=== PATIENT | female | born 1945 | race Caucasian/White ===

== ENCOUNTER 2024-05-09 12:37 | Inpatient (IN) | payer OTHER, MEDICARE, SELFPAY ==
[2024-05-09] VITALS (48 sets, daily range): BP systolic 75–149; BP diastolic 47–78; PULSE 73–154; RESP 15–92; TEMP 37.2–39.6; O2SAT 91–99; BMI 17.6; BMI 21.7
--- NOTE | 2024-05-09 12:50 | PD.EDAMS ---
Altered Mental Status RME/HPI General Chief Complaint: Altered Mental Status Stated Complaint: AMS Time Seen by Provider: 05/09/24 12:46 Arrival date/time: 05/09/24 12:37 RME / HPI RME / HPI narrative: DR. RAMIREZ MAIN ED EVALUATION: 79 year old female with past medical history significant for hypertension and diabetes presents to the Emergency Department [facility] from home with complaints of altered mental status and lethargy. Family called an ambulance because patient was confused after she woke up from a nap at 12PM; per EMS patient usually is a GCS of 15 and today she was a GCS of 11 and barely telling us her name. Per EMS, patient is tachycardic and seems febrile, hot to touch. Related Data Home Medications ?Medication ?Instructions ?Recorded ?Confirmed lovastatin 20 mg tablet 20 mg PO HS #0 tabs 03/06/16 metformin 500 mg tablet 500 mg PO BIDAC #0 tabs 03/06/16 (Glucophage) Previous Rx's ?Medication ?Instructions ?Recorded Phenazopyridine * (PYRIDIUM *) 200 mg PO TIDPC #10 tabs 03/01/16 Allergies Allergy/AdvReac Type Severity Reaction Status Date / Time codeine Allergy Mild SHAKEY Verified 03/23/16 12:11 Review of Systems Review of Systems Systems Reviewed: All systems reviewed, normal except as documented Past Medical History Social History SMOKING STATUS: Never smoker SUBSTANCE USE: does not use ALCOHOL: Never ED Exam Narrative Physical exam: GENERAL APPEARANCE: awake, tachypneic; well-developed, well-nourished, no acute distress VITALS: All vitals were reviewed and the pulse ox is 95% on room air, which is normal according to my interpretation. HEENT: Normocephalic, atraumatic; pupils equal, round, reactive to light; EOMI; mucous membranes pink, moist; oropharynx clear NECK: Supple LUNGS: tachypneic; no wheezes, no rales, no rhonchi HEART: Tachycardic, regular rhythm; normal S1, S2; no murmurs ABDOMEN: non distended; normal BS; soft, no tenderness, no guarding, no rebound; no masses, no organomegaly, no hernia BACK: no CVA tenderness EXTREMITIES: atraumatic; no edema NEUROLOGIC: awake; resting tremors PSYCHIATRIC: appropriate mood and affect SKIN: warm, dry, normal color; no rashes Course Course Course Narrative: 1415: Sepsis alert initiated. Orders made at this time are congruent with ED Adult Sepsis Order List. Re-evaluation is to be completed. 1444: Fluids started. 1515: Sepsis reassessment performed consisting of lab review, vitals, physical exam including auscultation of heart, lungs, and visual evaluation of capillary refills, mucosal membranes and extremities. Quality Measures Current suspected stage: sepsis Possible source: genitourinary Blood cultures ordered: yes Antibiotic ordered: Yes Pertinent labs: 05/09/24 13:11 Lactic Acid 3.2 H mMol/L (0.4-2.0) Procalcitonin 4.20 H ng/ml (0.0-0.49) sepsis Orders Category Date Time Status Bedside COVID-19 Antigen Test NOW Care 05/09/24 14:21 Active Bedside Influenza A&B Antigen Test NOW Care 05/09/24 14:21 Active Consultant Dietitian NOW Care 05/09/24 12:51 Active EKG (ED ONLY) *Do not use* NOW Care 05/09/24 12:51 Completed In and Out Catheter X1 Care 05/09/24 14:25 Completed Insert IV NOW Care 05/09/24 14:[address] head/brain wo con Stat Exams 05/09/24 12:53 Completed EKG (ED Only) Stat Exams 05/09/24 12:51 Draft XR chest 1V portable Stat Exams 05/09/24 12:51 Completed B-Type Natriuretic Peptide Stat Lab 05/09/24 13:11 Completed Blood Culture (Lab) Stat Lab 05/09/24 14:45 Received CBC Stat Lab 05/09/24 13:11 Completed Comprehensive Metabolic Panel Stat Lab 05/09/24 13:11 Completed Lactate (Lactic Acid) Stat Lab 05/09/24 13:11 Results Lipase Stat Lab 05/09/24 13:11 Completed Magnesium Stat Lab 05/09/24 13:11 Completed Partial Thromboplastin Time Stat Lab 05/09/24 13:11 Completed Procalcitonin Stat Lab 05/09/24 13:11 Completed Prothrombin Time with INR Stat Lab 05/09/24 13:11 Completed Troponin I Stat Lab 05/09/24 13:11 Completed Urinalysis Stat Lab 05/09/24 14:20 Completed Urine Culture Stat Lab 05/09/24 14:20 Received Sodium Chloride 0.9% 1000 ml [Ns] 1,000 ml Med 05/09/24 13:04 Discontinued IV 999 mls/hr Sodium Chloride 0.9% 1000 ml [Ns] 1,000 ml Med 05/09/24 14:06 Discontinued IV 999 mls/hr cefTRIAXone/D5w 1gm IV premix [Rocephin/D5w 1gm IV Med 05/09/24 14:22 Discontinued premix] 1 gm in 50 ml IV X1 Vital Signs Vital signs: Vital Signs Temperature 100.1 F 05/09/24 13:00 Pulse Rate 120 H 05/09/24 13:00 Respiratory Rate 24 H 05/09/24 13:00 Blood Pressure 84/47 L 05/09/24 13:00 Pulse Oximetry (%) 98 05/09/24 13:00 Oxygen Delivery Method Nasal Cannula 05/09/24 13:00 Oxygen Flow Rate 4 05/09/24 13:00 Altered Mental Status MDM Narrative MDM Narrative:: IVicky am scribing for and in the presence of Dr. Ramirez. Patient data External records reviewed:: EMS form Clinical information provided by:: EMS Social determinants that could affect healthcare access:: none Patient has the following chronic illnesses:: hypertension and diabetes How is presenting disease/condition affected by chronic disease/condition?: exacerbated by Evaluation data The following diagnostics were reviewed and interpreted by me:: lab results, radiology exam(s) and EKG tracing(s) (EKG#1: EKG at 1340 hours. Interpreted by me: sinus tachycardia, rate 116, artifact, left anterior fascicular block, right bundle branch block) Lab and/or radiology exams considered but not ordered:: none Interpretation Summary: Procedure(s): CT head/brain wo con Accession Number(s): [id number] cc: Artur Anderson MD; Gallo Hightower MD; Rabia Ramirez MD~ Examination: CT brain head without contrast. 2-D sagittal coronal reconstructions Date and time of exam:May 09, 2024 1433 hrs. Comparison July 17, 2013 Indications: Altered mental status today CTDI: vol (mGy):47.8 DLP: (mGycm):961 Technique: Multiple CT axial sections of the brain have been obtained, 5 mm slice thickness. Contrast has not been administered. 2-D sagittal, coronal reconstructions have been obtained Low dose protocols were performed. One or more of the following dose reduction techniques were used; automated exposure control, adjustment of the mA and/or KV according to patient size, use of iterative reconstruction technique. Findings: No significant ventricular enlargement. Intra-axial or extra-axial hemorrhage density is not seen. No mass effect or midline shift Basal cisterns are not remarkable. Fourth ventricle is midline. Cranial vault intact. Impression: Negative for acute hemorrhage, mass effect or midline shift Advise clinical correlation follow-up accordingly Dictated By: Gallo Hightower MD Procedure(s): XR chest 1V portable Accession Number(s): [id number] cc: Artur Anderson MD; Gallo Hightower MD; Rabia Ramirez MD~ Examination: AP chest single view Technique one AP portable semiupright chest single view Exam date and time: May 09, 2024 at 1448 hrs. Comparison July 15, 2013 Indications: Chest pain today. Findings: Mild prominence left ventricle. Enlarged ectatic thoracic aorta. Mild elevation right hemidiaphragm. Mild vascular congestion. No lobar pneumonia or pulmonary edema. Impression: Mild vascular congestion. Dictated By: Gallo Hightower MD Medications / Prescriptions Medications or Prescriptions considered but not ordered:: none Medication administrations:: Medication Administration History Discontinued Medications Sodium Chloride (Ns) 1,000 mls @ 999 mls/hr IV .Q1H1M ONE Stop: 05/09/24 14:04 Last Admin: 05/09/24 14:44 Dose: 999 mls/hr Documented By: KEITH Sodium Chloride (Ns) 1,000 mls @ 999 mls/hr IV .Q1H1M ONE Stop: 05/09/24 15:06 Last Admin: 05/09/24 14:44 Dose: 999 mls/hr Documented By: KEITH Ceftriaxone Sodium/Dextrose (Rocephin/D5w 1gm Iv Premix) 1 gm in 50 mls @ 100 mls/hr IV X1 ONE Stop: 05/09/24 14:51 Last Infusion: 05/09/24 15:26 Dose: Infused Documented By: Admin: 05/09/24 14:44 Dose: 100 mls/hr Documented By: KEITH see above if any Consultations Consultation(s) initiated? (list below): Yes Consultation #1 (Physician, Specialty, Details): Discussed test HPI, PMHx, lab, radiology results and/or management with hospitalist. Will admit for further evaluation and management. Accepts patient for admission. Diagnosis Differential diagnosis altered mental status: altered mental status, dementia, subarachnoid hemorrhage, sepsis and other (UTI, dehydration) Most likely diagnosis given after review of the tests above:: Sepsis UTI Admission Indicated Admission indicated?: indicated Admission Request Was there a request for admission?: Yes Admission Attestation Admission request attestation: Discussed case with [] from Hospitalist service regarding admission. Discussed patients ED course, exam findings, labs, and radiology results. The Hospitalist [agrees,declines] to accept the patient for admission. Disposition Plan Disposition Plan: Admit Critical Care Time Critical Care Time Critical Care Time: Yes Total Critical Care Time (min.): 30 Attestation: The high probability of sudden, clinically significant deterioration in the patient?s condition required the highest level of my preparedness to intervene urgently. The services I provided to this patient were to treat and/or prevent clinically significant deterioration. Services included the following: chart data review, reviewing nursing notes and/or old charts, documentation time, [employer] consultant collaboration regarding findings and treatment options, medication orders and management, direct patient care, vital sign assessments and ordering, interpreting and reviewing diagnostic studies and lab tests. Aggregate critical care time includes only time during which I was engaged in work directly related to the patient?s care, as described above, whether at bedside or elsewhere in the Emergency Department. It did not include time spent performing other reported procedures or the services of residents, students, nurses or physician assistants. Discharge Plan Plan Patient Disposition: Admit Acute Care w/in Hospital Prescriptions/Referrals Prescriptions/Med Rec: No Action Phenazopyridine * (PYRIDIUM *) 200 MG tablet 200 mg PO TIDPC Qty: 10 0RF metformin [Glucophage] 500 MG tablet 500 mg PO BIDAC Qty: 0 lovastatin 20 MG tablet 20 mg PO HS Qty: 0 Referrals: Artur Anderson MD [Primary Care Provider] - In 1 week Problem List Clinical Impression: Sepsis due to urinary tract infection, UTI (urinary tract infection) Patient/Caregiver Discharge Instructions Print Language: Macedonian Stand Alone Forms: Debbie Award Info., Patient Portal Info Letter
--- NOTE | 2024-05-09 12:51 | EKG_ITS ---
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: : 1945 Requested By: Rabia Cummings Order Number: [id number] Reading MD: Rabia Cummings Measurements Intervals [place] Rate: 116 P: 36 NC: 135 QRS: -31 QRSD: 77 T: 13 QT: 350 QTc: 488 Interpretive Statements SINUS TACHYCARDIA POSSIBLE LEFT ATRIAL ENLARGEMENT [-0.1mV P-WAVE IN V1/V2] LOW QRS VOLTAGE IN PRECORDIAL LEADS [QRS DEFLECTION < 1.0 mV IN CHEST LEADS] PATTERN CONSISTENT WITH PULMONARY DISEASE POSSIBLE RIGHT VENTRICULAR CONDUCTION DELAY [RSR (QR) IN V1/V2] INFERIOR MYOCARDIAL INFARCTION , PROBABLY OLD [40+ ms Q WAVE AND/OR ST/T ABNORMALITY IN II/aVF] No previous ECG available for comparison /store/S0/[id number]/[id number].pdf
--- NOTE | 2024-05-09 12:53 | XR_ITS ---
Examination: CT brain head without contrast. 2-D sagittal coronal reconstructions Date and time of exam:May 09, 2024 1433 hrs. Comparison July 17, 2013 Indications: Altered mental status today CTDI: vol (mGy):47.8 DLP: (mGycm):961 Technique: Multiple CT axial sections of the brain have been obtained, 5 mm slice thickness. Contrast has not been administered. 2-D sagittal, coronal reconstructions have been obtained Low dose protocols were performed. One or more of the following dose reduction techniques were used; automated exposure control, adjustment of the mA and/or KV according to patient size, use of iterative reconstruction technique. Findings: No significant ventricular enlargement. Intra-axial or extra-axial hemorrhage density is not seen. No mass effect or midline shift Basal cisterns are not remarkable. Fourth ventricle is midline. Cranial vault intact. Impression: Negative for acute hemorrhage, mass effect or midline shift Advise clinical correlation follow-up accordingly
[2024-05-09 13:20] LABS: Lactate (Lactic Acid) 3.2 mMol/L (0.4-2.0)
[2024-05-09 13:22] LABS: Basophils % (Auto) 0 % (0-2.5); Eosinophils % (Auto) 0 % (0-10); Hematocrit 44.1 % (36.0-46.0); Hemoglobin 14.3 g/dL (12.0-16.0); Immature Granulocytes % (Auto) 1 % (0-0); Immature Granulocytes Auto 0.03 Thou/mm3 (0.00-0.00); Lymphocytes # (Auto) 3.8 Thou/mm3 (1.0-4.8); Lymphocytes % (Auto) 58 % (10-50); Mean Corpuscular HGB Conc 32.4 g/dl (31.0-37.0); Mean Corpuscular Hemoglobin 28.8 pg (25.0-35.0); Mean Corpuscular Volume 89 fL (80-100); Monocytes # (Auto) 0.1 Thou/mm3 (0.0-0.8); Monocytes % (Auto) 1 % (0-12); Neutrophils # (Auto) 2.7 Thou/mm3 (1.8-7.7); Neutrophils % (Auto) 41 % (37-80); Nucleated Red Blood Cell % 0 /100 WBC (0); Platelet Count 151 Thou/mm3 (140-440); RDW Standard Deviation 51.9 fL (36.4-46.3); Red Blood Count 4.97 Miln/mm3 (4.00-5.20); White Blood Count 6.6 Thou/mm3 (3.6-11.0)
[2024-05-09 13:51] LABS: Partial Thromboplastin Time 21.3 Seconds (22.0-36.0); Prothrombin Time 10.9 Seconds (9.0-12.2)
[2024-05-09 13:55] LABS: B-Type Natriuretic Peptide 45 pg/mL (0-100)
[2024-05-09 14:03] LABS: Alanine Aminotransferase 47 U/L (10-49); Albumin, Serum 3.6 gm/dL (3.4-4.8); Alkaline Phosphatase 106 U/L (46-116); Anion Gap 10 (7-16); Aspartate Amino Transferase 92 U/L (0-34); BUN/Creatinine Ratio 15 Ratio (12-20); Bilirubin,Total 0.9 mg/dL (0.3-1.2); Blood Urea Nitrogen 15 mg/dL (9-23); Calcium 8.7 mg/dL (8.3-10.6); Carbon Dioxide 23.5 mMol/L (20.0-31.0); Chloride 108 mMol/L (98-107); Estimated Creatinine Clearance 33.2 mL/min (>60); Globulin 1.8 gm/dL (2.3-3.5); Glucose 145 mg/dL (74-106); Lipase 31 U/L (12-53); Magnesium 1.8 mg/dL (1.6-2.6); Osmolality,Calculated 285 (275-295); Potassium 3.4 mMol/L (3.4-5.1); Sodium 141 mMol/L (136-145); Total Protein 5.4 gm/dL (5.7-8.2); Troponin I < 0.020 ng/mL (0.0-0.045); eGFR 58 See Note
[2024-05-09] MEDS: SODIUM CHLORIDE 0.9% 1000 ML 1,000 ML 999 ML IV ×3 (14:44→17:03)
[2024-05-09] MEDS: cefTRIAXone/D5w 1gm IV premix 1 GM/50 ML BAG IV (14:44)
[2024-05-09 14:59] LABS: Collection Type, Urine Catheter
[2024-05-09 15:37] LABS: Bacteria,Urine 1+; Bilirubin,Urine Negative (Negative); Blood,Urine 2+ (Negative); Color,Urine Yellow (Lt Yel-Yel); Glucose, Urine Negative (Negative); Ketones,Urine Negative (Negative); Leukocyte Esterase,Urine Positive (Negative); Nitrite,Urine Negative (Negative); PH,Urine 6.5 (5.0-7.0); Protein,Urine Trace (Neg - Trace); RBC,Urine 41 /hpf (0-3); Specific Gravity,Urine 1.014 (1.001-1.035); Squamous Epithelial Cell,Urine 2 /hpf (0-5); Urobilinogen,Urine Negative mg/dL (0.0-1.0); WBC,Urine 7 /hpf (0-5)
[2024-05-09 15:39] LABS: Clarity,Urine Hazy (Clear/Hazy)
[2024-05-09 16:17] LABS: Reflex Lactate? Y
[2024-05-09 16:40] LABS: Lactic Acid, 3 HR 3.1 mMol/L (0.4-2.0)
--- NOTE | 2024-05-09 16:41 | ESHP_ITS ---
<Statement entered by Hany Bergeron MD - 05/11/24 10:35> I have discussed and was present for the essential components of the history, physical examination, diagnosis, and treatment plan with the resident. I agree with the patient's care as documented by the resident and amended herein by me. aHny Bergeron MD FACP. Documentation for date of: 05/09/24 HPI History of Present Illness Chief complaint: AMS History of present illness: 79 y/o F with PMHx of HTN, Diabetes, who presented to the ED due to altered mental status. History was limited due to the patient's mental status. Apparently the family called ambulance after the patient woke up around noon and saw that she was confused and not making much sense. In the ED patient arrived hypotensive, tachycardic, tachypneic, with fever 100.1, saturating 98% on 4 L nasal cannula. Patient was given 2 L NS bolus and blood pressure improved. Patient was also given ceftriaxone. Patient will be admitted for altered mental status likely in the setting of sepsis secondary to influenza and UTI ED course: Vitals on arrival BP 84/47, HR 120, respiratory rate 24, temp 100.1, O2 sat 98% on 4 L nasal cannula labs significant for chloride 108, GFR 58, glucose 145, lactic acid 2.1, AST 92, procalcitonin 4.20, UA showed 2+ blood, 41 urinary RBCs, 7 WBCs, 1+ bacteria. EKG showed sinus tachycardia, head CT was negative for acute bleed, chest x-ray showed mild vascular congestion. In the ED patient received 2 L NS bolus, ceftriaxone PMHx:as above SxHx:unknown Social Hx:unknown FHx: unknown Review of Systems Review of Systems ROS Unobtainable: unobtainable due to mental status Exam Vital Signs Temp Pulse Resp BP Pulse Ox O2 Del Method O2 Flow Rate 99.6 F 90 20 108/74 91 L Room Air 4 05/09/24 16:32 05/09/24 16:32 05/09/24 16:32 05/09/24 16:32 05/09/24 16:32 05/09/24 16:32 05/09/24 13:00 Narrative Exam Physical Exam GENERAL: NAD, fecal matter around whole body HEENT: dry mucosa. Eyes open, symmetrical, & clear CARDIO: Heart RRR, no obvious murmurs PULM: No noted coughing/dyspnea CTA B/L, no R/W/R GI: Abdomen soft, nondistended, no pain on palpation. BSx4 SKIN/MSK/EXT: No wounds/rashes/edema/amputations, no pain on palpation. Pedal pulses present B/L Results: Labs 05/09/24 13:11 05/09/24 13:11 Labs: Short CBC 05/09/24 Range/Units 13:11 WBC 6.6 (3.6-11.0) Thou/mm3 Hgb 14.3 (12.0-16.0) g/dL Hct 44.1 (36.0-46.0) % Plt Count 151 (140-440) Thou/mm3 BMP 05/09/24 13:11 Sodium 141 Potassium 3.4 Chloride 108 H Carbon Dioxide 23.5 BUN 15 Creatinine 1.0 Glucose 145 H Calcium 8.7 Cardiac Enzymes 05/09/24 Range/Units 13:11 Troponin I < 0.020 (0.0-0.045) ng/mL Liver Function 05/09/24 Range/Units 13:11 Total Bilirubin 0.9 (0.3-1.2) mg/dL AST 92 H (0-34) U/L ALT 47 (10-49) U/L Alkaline Phosphatase 106 (46-116) U/L Albumin 3.6 (3.4-4.8) gm/dL Urine 05/09/24 Range/Units 14:20 Urine Color Yellow (Lt Yel-Yel) Urine Clarity Hazy (Clear/Hazy) Urine pH 6.5 (5.0-7.0) Ur Specific [place] 1.014 (1.001-1.035) Urine Protein Trace (Neg - Trace) Urine Glucose (UA) Negative (Negative) Quality Measures Quality Measures sepsis Current suspected stage: sepsis Possible source: genitourinary Blood cultures ordered: yes Antibiotic ordered: Yes Advance care planning discussed with:: patient Medications Home Medications and Allergies Home Medications ?Medication ?Instructions ?Recorded ?Confirmed ?Type lovastatin 20 mg tablet 20 mg PO HS #0 tabs 03/06/16 History metformin 500 mg tablet 500 mg PO BIDAC #0 tabs 02/12 05/28 History (Glucophage) Allergies Allergy/AdvReac Type Severity Reaction Status Date / Time codeine Allergy Mild SHAKEY Verified 03/23/16 12:11 Visit Medications Acetaminophen (Acetaminophen 325 Mg Tablet) 650 mg PO Q6H PRN PRN Reason: Fever >101.5 Stop: 06/08/24 16:32 Acetaminophen (Acetaminophen 325 Mg Tablet) 650 mg PO Q6H PRN PRN Reason: PAIN SCALE 1-3 (mild Stop: 06/08/24 16:32 Docusate Sodium (Docusate Sod 100 Mg Capsule) 100 mg PO QDAY TITA; Protocol Stop: 06/09/24 08:59 Heparin Sodium (Porcine) (Heparin Sod Inj 5000 Unit/Ml Vial) 5,000 unit SC Q8HR TITA Stop: 05/23/24 21:59 Ceftriaxone Sodium/Dextrose (Rocephin/D5w 1gm Iv Premix) 50 mls @ 100 mls/hr IV QDAY TITA Stop: 05/16/24 16:38 Sodium Chloride (Ns) 1,000 mls @ 999 mls/hr IV .Q1H1M ONE Stop: 05/09/24 17:40 Sodium Chloride (Ns) 1,000 mls @ 75 mls/hr IV .[id number] TITA Stop: 06/08/24 16:39 Ondansetron HCl (Ondansetron Inj 2 Mg/Ml Inj 2 Ml) 4 mg IV Q6H PRN; Protocol PRN Reason: NAUSEA OR VOMITING Stop: 06/08/24 16:32 Sennosides (Senna Tablet) 1 tab PO QDAY [facility]; Protocol Stop: 06/09/24 08:59 Discontinued Medications Sodium Chloride (Ns) 1,000 mls @ 999 mls/hr IV .Q1H1M ONE Stop: 05/09/24 14:04 Last Infusion: 05/09/24 16:23 Dose: Infused Sodium Chloride (Ns) 1,000 mls @ 999 mls/hr IV .Q1H1M ONE Stop: 05/09/24 15:06 Last Infusion: 05/09/24 16:23 Dose: Infused Ceftriaxone Sodium/Dextrose (Rocephin/D5w 1gm Iv Premix) 1 gm in 50 mls @ 100 mls/hr IV X1 ONE Stop: 05/09/24 14:51 Last Infusion: 05/09/24 15:26 Dose: Infused Assessment & Plan Plan 79 y/o F with PMHx of HTN, Diabetes, who presented to the ED due to altered mental status. History was limited due to the patient's mental status. Apparently the family called ambulance after the patient woke up around noon and saw that she was confused and not making much sense. In the ED patient arrived hypotensive, tachycardic, tachypneic, with fever 100.1, saturating 98% on 4 L nasal cannula. Patient was given 2 L NS bolus and blood pressure improved. Patient was also given ceftriaxone. Patient will be admitted for altered mental status likely in the setting of sepsis secondary to influenza and UTI #Acute encephalopathy #Sepsis likely secondary to #Influenza #UTI Patient on arrival is altered not able to state name nor hold a conversation on arrival was covered on her own feces Patient was found to be influenza positive UA showed some bacteria and some WBCs Patient on arrival was hypotensive, tachycardic, tachypneic, with fevers, and saturating 98% on 4 L nasal cannula In the ED patient received 2L Boluses ? Ceftriaxone ? Tamiflu ? Follow-up blood cultures and urine cultures ? 1 L NS bolus ordered ? On IV fluids #Diabetes ? A1c ? SSI ? Hypoglycemia protocol in place #History of Hypertension Patient is hypotensive at this time Case discussed with my attending Dr. Rubio Caro MD PGY-1 Disposition: tele Fluids: None Feeding: NPO, pending swallow screen Thrombo prophylaxis: Heparin Gastric Ulcer prophylaxis: Pantoprazole 40 mg IV daily CODE STATUS: Full code
[2024-05-09] MEDS: SODIUM CHLORIDE 0.9% 1000 ML 1,000 ML 75 ML IV (17:04)
--- NOTE | 2024-05-09 18:07 | XR_ITS ---
Examination: CT abdomen and pelvis without contrast. Coronal 3-D reconstructions. Sagittal 2-D reconstructions. Date and time of exam:May 09, 2024 1927 hours INDICATIONS: Flank pain abdominal pain today COMPARISON: March 01, 2016 CTDI: vol (mGy): 13.5 DLP: (mGycm): 738 Technique: Axial images of the abdomen have been obtained, 3 mm slice thickness Intravenous contrast material has not been administered. Low dose protocols were performed. One or more of the following dose reduction techniques were used; automated exposure control, adjustment of the mA and/or KV according to patient size, use of iterative reconstruction technique. Findings: No visualized liver or splenic lesion Gallbladder is not visualized No pancreatic mass Mild bilateral hydronephrosis, no renal calculi Abdominal aortic calcification no aneurysmal dilatation No pericecal inflammatory change Abundant stool in the rectosigmoid with thickening of the rectal wall Abundant stool in the rectosigmoid with thickening of the rectal wall, proctitis include in the differential Minimal thickening of urinary bladder wall Diffuse advanced lumbar degenerative disc disease IMPRESSION: Mild bilateral hydronephrosis, no renal or ureteral calculi Repeating the CT study with contrast would best evaluate for pyelonephritis
[2024-05-09] MEDS: PANTOPRAZOLE INJ 40 MG VIAL IV (18:09)
[2024-05-09 18:56] LABS: Lactate (Lactic Acid) 3.5 mMol/L (0.4-2.0)
[2024-05-09] MEDS: Norepinephrine/D5W 8mg/250ml 8 MG/250 ML BAG 4.252 MG IV (20:47)
[2024-05-09 20:59] LABS: Lactate (Lactic Acid) 3.9 mMol/L (0.4-2.0)
[2024-05-09 21:55] LABS: Reflex Lactate? Y
--- NOTE | 2024-05-09 22:08 | PD.RESEVENT ---
Documentation for date of: 05/09/24 Event Note Event Note: Mrs. Bess is a 79-year-old female with past medical history of Parkinson's disease, depression, and hyperlipidemia who presented to [facility] with a chief complaint of Altered mentation. Patient was brought in by ambulance because at home she was confused and altered so family decided that she should go to the hospital. On initial presentation patient was found to be hypotensive tachycardic and tachypneic along with a fever of 100.1. I called patient's daughter Annabella for more history who stated that patient has not had any recent travel or sick contacts. Cindi and her daughter are the primary caregivers and patient at baseline is able to ambulate with a walker and has recently been wearing briefs for incontinence due to delay of getting to a toilet. They also feed her with a chopped diet and a selective diet that is high in protein and low in dairy. Her daughter Cindi said that the primary medications for the patient are Parkinson's related and that she does not have a history of diabetes. She states that her mother had not been complaining of anything and no one else at home has been feeling ill. Today was the first day that she was demonstrating any kind of symptoms. She states that she does not know if her mom is a DNR/DNI but will go through her medical documentation to see if there is an advance care directive or POLST form. I counseled her to reach out to any other family members in regards to end-of-life care in the event that patient requires further escalation of care and to respect her wishes for what she would want in that event. Family states that they will be there in the morning to come see her. Rapid response was called for the patient around 8:27 PM due to hypotension. Patient was recently brought upstairs from the emergency department after receiving 3 L of fluid boluses and was on maintenance fluid while blood pressure was sustaining in the systolics of 80s and diastolic in the 40s. Overall MAP was in the mid to high 50s. Patient felt cool and clammy to touch in the bilateral lower extremities. Lungs were clear and she was lying flat on room air with O2 sats measuring 97. I felt that patient had received adequate fluid resuscitation in the emergency department so decision was made to upgrade the patient to the ICU and start her on Levophed for septic shock secondary to urinary tract infection and influenza. In the ICU patient's vitals were rechecked and she continued to demonstrate hypotension along with a fever of 100.3. Antibiotic therapy was escalated to Zosyn and ceftriaxone was discontinued. Repeat lactic acid was ordered stat which came back elevated once again at 3.9. Plan of care discussed with supervising attending Dr. Jose C Martinez M.D. PGY-3
[2024-05-09] MEDS: PIPER/TAZO 3.375 GM PREMIX 3.375 GM/50 ML BAG IV (22:14)
--- NOTE | 2024-05-09 22:18 | PD.RESCONSUL ---
HPI Data of Consult Consult date: 05/09/24 Requesting Physician: Hany Bergeron MD Admitting Provider: Hany Bergeron MD Attending Provider: Hany Bergeron MD Primary Care Provider: Artur Anderson MD Consult Narrative Reason for consult: Septic shock secondary to complicated UTI with pyelonephritis and influenza History of present illness: Mrs. Bess is a 79-year-old female with past medical history of Parkinson's disease, depression, and hyperlipidemia who presented to [facility] with a chief complaint of Altered mentation. Patient was brought in by ambulance because at home she was confused and altered so family decided that she should go to the hospital. On initial presentation patient was found to be hypotensive tachycardic and tachypneic along with a fever of 100.1. I called patient's daughter Annabella for more history who stated that patient has not had any recent travel or sick contacts. Cindi and her daughter are the primary caregivers and patient at baseline is able to ambulate with a walker and has recently been wearing briefs for incontinence due to delay of getting to a toilet. They also feed her with a chopped diet and a selective diet that is high in protein and low in dairy. Her daughter Cindi said that the primary medications for the patient are Parkinson's related and that she does not have a history of diabetes. She states that her mother had not been complaining of anything and no one else at home has been feeling ill. Today was the first day that she was demonstrating any kind of symptoms. She states that she does not know if her mom is a DNR/DNI but will go through her medical documentation to see if there is an advance care directive or POLST form. I counseled her to reach out to any other family members in regards to end-of-life care in the event that patient requires further escalation of care and to respect her wishes for what she would want in that event. Family states that they will be there in the morning to come see her. Rapid response was called for the patient around 8:27 PM due to hypotension. Patient was recently brought upstairs from the emergency department after receiving 3 L of fluid boluses and was on maintenance fluid while blood pressure was sustaining in the systolics of 80s and diastolic in the 40s. Overall MAP was in the mid to high 50s. Patient felt cool and clammy to touch in the bilateral lower extremities. Lungs were clear and she was lying flat on room air with O2 sats measuring 97. I felt that patient had received adequate fluid resuscitation in the emergency department so decision was made to upgrade the patient to the ICU and start her on Levophed for septic shock secondary to urinary tract infection and influenza. In the ICU patient's vitals were rechecked and she continued to demonstrate hypotension along with a fever of 100.3. Antibiotic therapy was escalated to Zosyn and ceftriaxone was discontinued. Repeat lactic acid was ordered stat which came back elevated once again at 3.9. PMH: Parkinson's disease, depression, hyperlipidemia, assistance with ADLs Social history: Patient lives with her daughter and granddaughter at home denies any alcohol or tobacco use. is Surgical history: Unknown Allergies: Codeine listed on APR ED vitals: BP 84/47, pulse 120, RR 24, temp 100.1, O2 sat 98 on 4 L via nasal cannula ED labs: WBC 6.6, hemoglobin 14.3, EGFR 58, creatinine 1.0, initial lactic acid 3.2 and following 3 L of fluid resuscitation still increasing to 3.9. AST 92, Pro-Aquiles 4.2. U/A: 2+ blood, 41 RBC, 7 WBC and 1+ bacteria ED imaging: Chest x-ray: Mild vascular congestion according to radiology CT head: Negative for acute hemorrhage, mass effect, or midline shift EKG reveals sinus tachycardia in the setting of sepsis CT abdomen pelvis reveals mild bilateral hydronephrosis but no renal or ureteral calculi. cc:: cc: Hany Bergeron MD Review of Systems Review of Systems Systems Reviewed: All systems reviewed, normal except as documented Exam Vital Signs Temp Pulse Resp BP Pulse Ox O2 Del Method O2 Flow Rate 98.9 F 110 H 18 80/49 L 97 Room Air 4 05/09/24 20:27 05/09/24 20:27 05/09/24 20:27 05/09/24 20:27 05/09/24 20:27 05/09/24 18:21 05/09/24 13:00 Narrative Exam GENERAL: Alert and oriented x 3. Mild distress. Appears anxious. Diaphoretic EYES: EOMI. Anicteric. HEENT: Moist mucous membranes. No scleral icterus. No cervical lymphadenopathy. LUNGS: Clear to auscultation bilaterally. No accessory muscle use. CARDIOVASCULAR: Sinus tachycardia. No murmur. No JVD. ABDOMEN: Soft, non-tender and non-distended. No palpable masses. EXTREMITIES: All 4 extremeties intact. No edema. Nontender. SKIN: No rashes or lesions. Cool in bilateral lower extremities. NEUROLOGIC: No focal neurological deficits. CN II-XII grossly intact, but not individually tested. PSYCHIATRIC: Cooperative. Appropriate mood and affect. Anxious Results Labs 05/09/24 13:11 05/09/24 13:11 Labs: Short CBC 05/09/24 Range/Units 13:11 WBC 6.6 (3.6-11.0) Thou/mm3 Hgb 14.3 (12.0-16.0) g/dL Hct 44.1 (36.0-46.0) % Plt Count 151 (140-440) Thou/mm3 BMP 05/09/24 13:11 Sodium 141 Potassium 3.4 Chloride 108 H Carbon Dioxide 23.5 BUN 15 Creatinine 1.0 Glucose 145 H Calcium 8.7 Cardiac Enzymes 05/09/24 Range/Units 13:11 Troponin I < 0.020 (0.0-0.045) ng/mL Liver Function 05/09/24 Range/Units 13:11 Total Bilirubin 0.9 (0.3-1.2) mg/dL AST 92 H (0-34) U/L ALT 47 (10-49) U/L Alkaline Phosphatase 106 (46-116) U/L Albumin 3.6 (3.4-4.8) gm/dL Urine 05/09/24 Range/Units 14:20 Urine Color Yellow (Lt Yel-Yel) Urine Clarity Hazy (Clear/Hazy) Urine pH 6.5 (5.0-7.0) Ur Specific [place]ard 1.014 (1.001-1.035) Urine Protein Trace (Neg - Trace) Urine Glucose (UA) Negative (Negative) Quality Measures Quality Measures sepsis Current suspected stage: septic shock (LA >4 and/or hypotension) IVF 30 ml/kg given for lactic acid >4 and/or hypotension: yes Vasopressors initiated: Yes Sepsis reassessment completed at (date): 05/09/24 Sepsis reassessment completed at (time): 22:00 Possible source: genitourinary Blood cultures ordered: yes Antibiotic ordered: Yes Advance care planning discussed with:: other Medications Home Medications and Allergies Home Medications ?Medication ?Instructions ?Recorded ?Confirmed ?Type lovastatin 20 mg tablet 20 mg PO HS #0 tabs 03/06/16 History metformin 500 mg tablet 500 mg PO BIDAC #0 tabs 03/06/16 History (Glucophage) Allergies Allergy/AdvReac Type Severity Reaction Status Date / Time codeine Allergy Mild SHAKEY Verified 03/23/16 12:11 Visit Medications Acetaminophen (Acetaminophen 325 Mg Tablet) 650 mg PO Q6H PRN PRN Reason: Fever >101.5 Stop: 06/08/24 16:32 Acetaminophen (Acetaminophen 325 Mg Tablet) 650 mg PO Q6H PRN PRN Reason: PAIN SCALE 1-3 (mild Stop: 06/08/24 16:32 Dextrose (Dextrose 50%-Water Inj 50 Ml Syringe) 25 ml IV Q15MIN PRN PRN Reason: BG 50-70 responsive npo pt Stop: 06/08/24 16:54 Dextrose (Dextrose 50%-Water Inj 50 Ml Syringe) 50 ml IV Q15MIN PRN PRN Reason: BG <50 OR BG <70 & pt unresponsive Stop: 06/08/24 16:54 Docusate Sodium (Docusate Sod 100 Mg Capsule) 100 mg PO QDAY [facility] [place]; Protocol Stop: 06/09/24 08:59 Glucagon (Glucagon Inj 1 Mg Vial) 1 mg IM Q15MIN PRN PRN Reason: BG <70, and no IV access Heparin Sodium (Porcine) (Heparin Sod Inj 5000 Unit/Ml Vial) 5,000 unit SC Q8HR [facility] [place] Stop: 05/23/24 21:59 Sodium Chloride (Ns) 1,000 mls @ 75 mls/hr IV .[id number] [facility] [place] Stop: 06/08/24 16:39 Last Admin: 05/09/24 17:04 Dose: 75 mls/hr Norepinephrine Bitartrate (Levophed In Ns 16mg/250ml) 16 mg in 250 mls @ 2.126 mls/hr IV .Q24H PRN; Protocol PRN Reason: PER PROTOCOL Stop: 06/08/24 20:30 Piperacillin/Tazobactam/Dextrose (Zosyn) 3.375 gm in 50 mls @ 12.5 mls/hr IV Q8HR [facility] [place] Stop: 05/16/24 20:59 Last Admin: 05/09/24 22:14 Dose: 12.5 mls/hr Insulin Human Lispro (Insulin Lispro (Admelog) 1 Unit/0.01 Ml Unit) 0 unit SC AC [facility] [place]; Protocol Stop: 06/08/24 16:59 Last Admin: 05/09/24 17:07 Dose: Not Given Ondansetron HCl (Ondansetron Inj 2 Mg/Ml Inj 2 Ml) 4 mg IV Q6H PRN; Protocol PRN Reason: NAUSEA OR VOMITING Stop: 06/08/24 16:32 Oseltamivir Phosphate (Oseltamivir 30 Mg Capsule) 30 mg PO BID [facility] [place] Stop: 05/14/24 09:01 Pantoprazole Sodium (Pantoprazole Inj 40 Mg Vial) 40 mg IV QDAY [facility] [place] Stop: 06/08/24 18:14 Last Admin: 05/09/24 18:09 Dose: 40 mg Sennosides (Senna Tablet) 1 tab PO QDAY [facility] [place]; Protocol Stop: 06/09/24 08:59 Discontinued Medications Sodium Chloride (Ns) 1,000 mls @ 999 mls/hr IV .Q1H1M ONE Stop: 05/09/24 14:04 Last Infusion: 05/09/24 16:23 Dose: Infused Sodium Chloride (Ns) 1,000 mls @ 999 mls/hr IV .Q1H1M ONE Stop: 05/09/24 15:06 Last Infusion: 05/09/24 16:23 Dose: Infused Ceftriaxone Sodium/Dextrose (Rocephin/D5w 1gm Iv Premix) 1 gm in 50 mls @ 100 mls/hr IV X1 ONE Stop: 05/09/24 14:51 Last Infusion: 05/09/24 15:26 Dose: Infused Ceftriaxone Sodium/Dextrose (Rocephin/D5w 1gm Iv Premix) 1 gm in 50 mls @ 100 mls/hr IV QDAY@1400 [facility] [place] Stop: 05/17/24 13:59 Sodium Chloride (Ns) 1,000 mls @ 999 mls/hr IV .Q1H1M ONE Stop: 05/09/24 17:40 Last Infusion: 05/09/24 17:47 Dose: Infused Oseltamivir Phosphate (Oseltamivir 75 Mg Capsule) 75 mg PO X1 ONE Stop: 05/09/24 21:01 Last Admin: 05/09/24 22:15 Dose: 75 mg Assessment & Plan Plan Neurology Problem: Parkinson's disease, depression Treatment Plan: Resume home medications of carbidopa/L-dopa 25/100. Pramipexole 1 mg twice daily. Sertraline 50 mg. Rivastigmine 4.5 mg twice daily Cardiovascular Problem: Septic shock secondary to UTI complicated with bilateral pyelonephritis and influenza Diagnostic Test: Lactic acid 3.9, Pro-Aquiles 4.2, CT abdomen pelvis reveals bilateral pyelonephritis. U/a for mild UTI 1+ bacteria 35 WBC, 2+ blood Treatment Plan: Antibiotic therapy escalated to Zosyn. Continue with Tamiflu for the flu. Blood cultures pending, urine cultures pending. Repeat lactic every 4 hourly Respiratory Problem: None, on room air GI and F/E/N Problem: N.p.o., pending speech evaluation Renal Problem: None, wears briefs for urinary incontinence. No Garcia catheter Heme Problem: None Endo Problem: Chart states diabetes mellitus but daughter states that patient does not take any diabetic medications. States that mother had a history of prediabetes. ID Problem: Septic shock as documented above DVT prophylaxis: Heparin 5000 IU every 8 hourly GI prophylaxis: None, senna for constipation Diet: N.p.o. pending speech evaluation Garcia: Not indicated. Check briefs for urination. If patient does not urinate and do bladder scan assess for retention Lines: Peripheral IV, right femoral central line Drips: Levophed at 0.05 Vent: Not indicated CODE STATUS: Full code, full treatment Reason for hospitalization septic shock secondary to UTI complicated with acute pyelonephritis bilaterally and influenza Plan of care discussed with supervising attending Dr. Jose C Martinez M.D. PGY-3
[2024-05-09] MEDS: HEPARIN SOD INJ 5000 UNIT/ML VIAL SC (22:19)
--- NOTE | 2024-05-09 22:30 | PD.RESPROC ---
Procedures Procedure Date / Time 05/09/242229 Central Line Placement Right Femoral: Indication(s): shock Informed consent obtained: from patient and obtained from surrogate decision maker Time out done, and the following verified: correct patient, side and site, procedure and patient position Patient placed on monitor/pulse ox: Yes Hand Hygiene: scrub, soap & water and alcohol-based hand rub Max Sterile Barrier Techniques used: cap, mask, sterile gown, sterile gloves and sterile full body drape Central line prep: Chlorhexidine scrub and sterile drapes applied Local anesthesia used: lidocaine 1% Amount of anesthesia used (mL): 10 Ultrasound used for placement: Yes Sterile Technique if Ultrasound used, including sterile gel: yes Central line lumen inserted: triple Post procedure: sutured in place, good blood return, all ports aspirated, flushed, capped and sterile dressing applied Patient tolerated procedure: well EBL(ml): 10 Complications: none Procedure comment: Had to place a femoral triple-lumen catheter due to the fact that the 16 cm kit was unavailable. Consent obtained from patient who was ANO x 4 but also spoke to patient's daughter Cindi who also consented over the phone.
[2024-05-09] MEDS: Norepinephrine/D5W 8mg/250ml 8 MG/250 ML BAG 7.298 MG IV (23:00)
[2024-05-09 23:57] LABS: Reflex Lactate? Y
[2024-05-10] VITALS (88 sets, daily range): BP systolic 78–126; BP diastolic 49–73; PULSE 65–177; RESP 16–96; TEMP 36.8–37.6; O2SAT 93–100; BMI 21.7
[2024-05-10 00:47] LABS: Lactic Acid, 3 HR 1.5 mMol/L (0.4-2.0)
[2024-05-10] MEDS: PIPER/TAZO 3.375 GM PREMIX 3.375 GM/50 ML BAG IV ×3 (05:02→21:14)
[2024-05-10] MEDS: HEPARIN SOD INJ 5000 UNIT/ML VIAL SC ×3 (05:03→21:14)
[2024-05-10] MEDS: SODIUM CHLORIDE 0.9% 1000 ML 1,000 ML 75 ML IV (05:19)
[2024-05-10 06:02] LABS: Basophils % (Auto) 0 % (0-2.5); Eosinophils % (Auto) 0 % (0-10); Hematocrit 37.9 % (36.0-46.0); Immature Granulocytes % (Auto) 2 % (0-0); Immature Granulocytes Auto 0.59 Thou/mm3 (0.00-0.00); Lymphocytes # (Auto) 6.4 Thou/mm3 (1.0-4.8); Lymphocytes % (Auto) 22 % (10-50); Mean Corpuscular HGB Conc 31.7 g/dl (31.0-37.0); Mean Corpuscular Hemoglobin 28.5 pg (25.0-35.0); Mean Corpuscular Volume 90 fL (80-100); Monocytes # (Auto) 1.1 Thou/mm3 (0.0-0.8); Monocytes % (Auto) 4 % (0-12); Neutrophils # (Auto) 21.1 Thou/mm3 (1.8-7.7); Neutrophils % (Auto) 72 % (37-80); Nucleated Red Blood Cell % 0 /100 WBC (0); Platelet Count 155 Thou/mm3 (140-440); RDW Standard Deviation 53.7 fL (36.4-46.3); Red Blood Count 4.21 Miln/mm3 (4.00-5.20); White Blood Count 29.1 Thou/mm3 (3.6-11.0)
[2024-05-10 06:11] LABS: Glucose Estimated Average 123 mg/dL (80-131); Hemoglobin A1C 5.9 % Hgb (4.8-6.0)
[2024-05-10 06:48] LABS: Alanine Aminotransferase 119 U/L (10-49); Albumin, Serum 3.2 gm/dL (3.4-4.8); Albumin/Globulin Ratio 2.3 (1.2-2.2); Alkaline Phosphatase 89 U/L (46-116); Anion Gap 9 (7-16); Aspartate Amino Transferase 105 U/L (0-34); BUN/Creatinine Ratio 20 Ratio (12-20); Bilirubin,Total 0.6 mg/dL (0.3-1.2); Blood Urea Nitrogen 16 mg/dL (9-23); Calcium 7.6 mg/dL (8.3-10.6); Calcium (Corrected) 8.2 mg/dL (8.5-10.1); Carbon Dioxide 21.6 mMol/L (20.0-31.0); Chloride 113 mMol/L (98-107); Creatinine (Component) 0.8 mg/dL (0.6-1.3); Estimated Creatinine Clearance 47.9 mL/min (>60); Globulin 1.4 gm/dL (2.3-3.5); Glucose 98 mg/dL (74-106); Magnesium 1.6 mg/dL (1.6-2.6); Osmolality,Calculated 288 (275-295); Phosphorous 3.5 mg/dL (2.4-5.1); Potassium 3.4 mMol/L (3.4-5.1); Sodium 144 mMol/L (136-145); Thyroid Stimulating Hormone 2.35 uIU/mL (0.55-4.78); Total Protein 4.6 gm/dL (5.7-8.2); eGFR > 60 See Note
[2024-05-10] MEDS: SENNA TABLET 1 TAB PO (09:58)
[2024-05-10] MEDS: CARBIDOPA/LEVODOPA 25/100 MG TABLET 1 TAB PO (09:58)
[2024-05-10] MEDS: PRAMIPEXOLE 0.25 MG TABLET 1 MG PO ×2 (09:58→20:16)
[2024-05-10] MEDS: OSELTAMIVIR 30 MG CAPSULE PO ×2 (10:09→20:15)
--- NOTE | 2024-05-10 11:14 | ESPR_ITS ---
<Statement entered by Lan Llamas MD - 05/10/24 11:59> TOTAL CC TIME: 45 MIN I saw and evaluated the patient. I reviewed the resident?s note and agree with findings and plan as documented in the resident?s note. Upon my evaluation, this patient had a high probability of imminent or life- threatening deterioration due to septic shock which required my direct attention, intervention, and personal management. This time is exclusive of time spent on procedures, which are documented separately if performed. Septic shock with urinary tract infection/bilateral pyelonephritis. Continue Zosyn follow-up final culture results Reassess stroke-volume index response to fluid challenge later today. Concurrent POCUS exam will be completed as well. Flu seems to be less of an issue Keep in ICU follow-up swallow evaluation add midodrine if cleared for p.o. meds Documentation for date of: 05/10/24 Subjective Subjective Interval history: Patient seen and examined at bedside. She is a 79-year-old female with a past medical history of Parkinson's disease, depression and hyperlipidemia presented with altered mental status. Admitted for sepsis secondary to UTI as well as influenza. Rapid response was called last night as the patient'S MAP was in the 50s. She had received 3 L of fluids in the ED prior and was on maintenance. Awaiting to the ICU for pressor support. At bedside this morning, patient is AAO x 2, has no complaints. Currently on Levophed at 0.03. Lactic acid this morning at 1.5, previously was 3.9. Bedside ultrasound done, plethoric IVC, not collapsible. Will continue to titrate pressors for MAP greater than 65. Otherwise, labs reviewed, leukocytosis with WBC of 29, likely due to shock. Will continue IV antibiotics Exam Vital Signs Temp Pulse Resp BP Pulse Ox O2 Del Method O2 Flow Rate 98.3 F 70 18 99/60 95 Room Air 4 05/10/24 04:00 05/10/24 06:00 05/10/24 06:00 05/10/24 06:00 05/10/24 06:00 05/10/24 04:00 05/09/24 13:00 Narrative Exam GENERAL: AAOX2, Lethargic NEURO: ASSIGNMENT EDITOR grossly intact, moves extremities x4 HEENT: Dry mucosa. Eyes open, symmetrical, & clear CARDIO: No chest pain on palpation. Heart RRR, no obvious murmurs PULM: No noted coughing/dyspnea. Lungs CTA B/L GI: Abdomen soft, nondistended, no pain on palpation. BSx4 URO/LITIGATION SECRETARY:: No further abnormalities noted. SKIN/MSK/EXT: No wounds/rashes/edema/amputations, no pain on palpation. Pedal pulses present B/L Objective Labs 05/11/24 04:54 05/11/24 04:54 Labs: Laboratory Results - last 24 hr 05/09/24 05/09/24 05/09/24 13:11 14:20 16:30 WBC 6.6 RBC 4.97 Hgb 14.3 Hct 44.1 MCV 89 MCH 28.8 MCHC 32.4 RDW Std Deviation 51.9 H Plt Count 151 Neut % (Auto) 41 Lymph % (Auto) 58 H [place] % (Auto) 1 Eos % (Auto) 0 Baso % (Auto) 0 Neut # (Auto) 2.7 Lymph # (Auto) 3.8 [place] # (Auto) 0.1 Eos # (Auto) 0.0 Baso # (Auto) 0.0 Immature Gran # (Auto) 0.03 H Absolute Nucleated RBC 0.00 Immature Gran % 1 H Nucleated RBC % 0 PT 10.9 INR 1.0 APTT 21.3 L Sodium 141 Potassium 3.4 Chloride 108 H Carbon Dioxide 23.5 Anion Gap 10 BUN 15 Creatinine 1.0 Estim Creat Clear Calc 33.2 L eGFR 58 L BUN/Creatinine Ratio [address] Glu mg/dL Hemoglobin A1c Calculated Osmolality 285 Lactic Acid 3.2 H 3.1 H Calcium 8.7 Corrected Calcium 9.0 Phosphorus Magnesium 1.8 Total Bilirubin 0.9 AST 92 H ALT 47 Alkaline Phosphatase 106 Troponin I < 0.020 B-Natriuretic Peptide 45 Total Protein 5.4 L Albumin 3.6 Globulin 1.8 L Albumin/Globulin Ratio 2.0 Lipase 31 Procalcitonin 4.20 H TSH Ur Collection Type Catheter Urine Color Yellow Urine Clarity Hazy Urine pH 6.5 Ur Specific [place] 1.014 Urine Protein Trace Urine Glucose (UA) Negative Urine Ketones Negative Urine Blood 2+ A Urine Nitrite Negative Urine Bilirubin Negative Urine Urobilinogen (Auto) Negative Ur Leukocyte Esterase Positive Urine RBC 41 H Urine WBC 7 H Ur Squamous Epith Cells 2 Urine Bacteria 1+ A 03/05/09/24 05/10/24 18:51 20:49 00:35 WBC RBC Hgb Hct MCV MCH MCHC RDW Std Deviation Plt Count Neut % (Auto) Lymph % (Auto) [place] % (Auto) Eos % (Auto) Baso % (Auto) Neut # (Auto) Lymph # (Auto) [place] # (Auto) Eos # (Auto) Baso # (Auto) Immature Gran # (Auto) Absolute Nucleated RBC Immature Gran % Nucleated RBC % PT INR APTT Sodium Potassium Chloride Carbon Dioxide Anion Gap BUN Creatinine Estim Creat Clear Calc eGFR BUN/Creatinine Ratio Glucose Estimated Ave Glu mg/dL Hemoglobin A1c Calculated Osmolality Lactic Acid 3.5 H 3.9 H 1.5 Calcium Corrected Calcium Phosphorus Magnesium Total Bilirubin AST ALT Alkaline Phosphatase Troponin I B-Natriuretic Peptide Total Protein Albumin Globulin Albumin/Globulin Ratio Lipase Procalcitonin TSH Ur Collection Type Urine Color Urine Clarity Urine pH Ur Specific [place] Urine Protein Urine Glucose (UA) Urine Ketones Urine Blood Urine Nitrite Urine Bilirubin Urine Urobilinogen (Auto) Ur Leukocyte Esterase Urine RBC Urine WBC Ur Squamous Epith Cells Urine Bacteria 05/10/24 05:15 WBC 29.1 H D RBC 4.21 Hgb 12.0 D Hct 37.9 MCV 90 MCH 28.5 MCHC 31.7 RDW Std Deviation 53.7 H Plt Count 155 Neut % (Auto) 72 Lymph % (Auto) 22 [place] % (Auto) 4 Eos % (Auto) 0 Baso % (Auto) 0 Neut # (Auto) 21.1 H Lymph # (Auto) 6.4 H [place] # (Auto) 1.1 H Eos # (Auto) 0.0 Baso # (Auto) 0.0 Immature Gran # (Auto) 0.59 H Absolute Nucleated RBC 0.00 Immature Gran % 2 H Nucleated RBC % 0 PT INR APTT Sodium 144 Potassium 3.4 Chloride 113 H Carbon Dioxide 21.6 Anion Gap 9 BUN 16 Creatinine 0.8 Estim Creat Clear Calc 47.9 L eGFR > 60 BUN/Creatinine Ratio [address] Glu mg/dL 123 Hemoglobin A1c 5.9 Calculated Osmolality 288 Lactic Acid Calcium 7.6 L Corrected Calcium 8.2 L Phosphorus 3.5 Magnesium 1.6 Total Bilirubin 0.6 AST 105 H ALT 119 H Alkaline Phosphatase 89 Troponin I B-Natriuretic Peptide Total Protein 4.6 L Albumin 3.2 L Globulin 1.4 L Albumin/Globulin Ratio 2.3 H Lipase Procalcitonin TSH 2.35 Ur Collection Type Urine Color Urine Clarity Urine pH Ur Specific [place] Urine Protein Urine Glucose (UA) Urine Ketones Urine Blood Urine Nitrite Urine Bilirubin Urine Urobilinogen (Auto) Ur Leukocyte Esterase Urine RBC Urine WBC Ur Squamous Epith Cells Urine Bacteria Quality Measures Quality Measures sepsis Current suspected stage: septic shock (LA >4 and/or hypotension) Sepsis reassessment completed at (date): 05/10/24 Sepsis reassessment completed at (time): 18:38 Possible source: genitourinary Blood cultures ordered: yes Antibiotic ordered: Yes Advance care planning discussed with:: other Assessment & Plan Assessment Current Active Medications: Generic Name Dose Route Start Last Admin Trade Name Freq PRN Reason Stop Dose Admin Acetaminophen 650 mg 05/09/24 16:33 Acetaminophen 325 Mg Tablet PO 06/08/24 16:32 Q6H PRN Fever >101.5 Acetaminophen 650 mg 05/09/24 16:33 Acetaminophen 325 Mg Tablet PO 06/08/24 16:32 Q6H PRN PAIN SCALE 1-3 (mild Acetaminophen 650 mg 05/10/24 07:32 Acetaminophen Supp 650 Mg Supp LA 06/08/24 22:40 Q6HR PRN PAIN OR FEVER > 101 Carbidopa/Levodopa 1 tab 05/10/24 09:00 05/10/24 09:58 Carbidopa/Levodopa 25/100 Mg Tablet PO 06/09/24 08:59 1 tab QDAY TITA Administration Dextrose 25 ml 05/09/24 16:55 Dextrose 50%-Water Inj 50 Ml Syringe IV 06/08/24 16:54 Q15MIN PRN BG 50-70 responsive npo pt Dextrose 50 ml 05/09/24 16:55 Dextrose 50%-Water Inj 50 Ml Syringe IV 06/08/24 16:54 Q15MIN PRN BG <50 OR BG <70 & pt unresponsive Docusate Sodium 100 mg 05/10/24 09:00 Docusate Sod 100 Mg Capsule PO 06/09/24 08:59 QDAY [facility] Protocol Glucagon 1 mg 05/09/24 16:55 Glucagon Inj 1 Mg Vial IM Q15MIN PRN BG <70, and no IV access Heparin Sodium (Porcine) 5,000 unit 05/09/24 22:00 05/10/24 05:03 Heparin Sod Inj 5000 Unit/Ml Vial SC 05/23/24 21:59 5,000 unit Q8HR TITA Administration Sodium Chloride 1,000 mls @ 75 mls/hr 05/09/24 16:40 05/10/24 06:41 Ns IV 06/08/24 16:39 0 mls/hr .[id number] TITA Infusion Piperacillin/Tazobactam/Dextrose 3.375 gm in 50 mls @ 12.5 mls/hr 05/09/24 21:00 05/10/24 05:02 Zosyn IV 05/16/24 20:59 12.5 mls/hr Q8HR TITA Administration Norepinephrine/Dextrose 8 mg in 250 mls @ 5.213 mls/hr 05/09/24 23:06 05/10/24 06:00 Levophed In D5w 8mg/250ml IV 06/08/24 23:05 0.03 mcg/kg/min .Q24H PRN 3.128 mls/hr PER PROTOCOL Titration Protocol 0.05 MCG/KG/MIN Insulin Human Lispro 0 unit 05/09/24 17:00 05/10/24 09:39 Insulin Lispro (Admelog) 1 Unit/0.01 Ml Unit SC 06/08/24 16:59 Not Given AC TITA Protocol Home Medication- 4.6 ea 05/10/24 09:00 Please Speak With PO 06/09/24 08:59 Patient Caregiver To BID TITA Have Rx Brought To [facility] Ondansetron HCl 4 mg 05/09/24 16:33 Ondansetron Inj 2 Mg/Ml Inj 2 Ml IV 06/08/24 16:32 Q6H PRN NAUSEA OR VOMITING Protocol Oseltamivir Phosphate 30 mg 05/10/24 09:00 05/10/24 10:09 Oseltamivir 30 Mg Capsule PO 05/14/24 09:01 30 mg BID TITA Administration Pramipexole Dihydrochloride 1 mg 05/10/24 09:00 05/10/24 09:58 Pramipexole 0.25 Mg Tablet PO 06/09/24 08:59 1 mg BID TITA Administration Sennosides 1 tab 05/10/24 09:00 05/10/24 09:58 Senna Tablet PO 06/09/24 08:59 1 tab QDAY TITA Administration Protocol Sertraline HCl 50 mg 05/10/24 21:00 Sertraline Hcl 25 Mg Tablet PO 06/09/24 20:59 HS [facility] Plan Summary: The patient is a 79-year-old female with past medical history of Parkinson disease, depression and hyperlipidemia who presented to the ED on 05/09/2024 with altered mental status and was admitted for sepsis secondary to UTI as well as influenza. Admitted to the ICU for septic shock requiring pressors. Neuro #Acute encephalopathy Patient presented altered and confused per daughter. On admission, UA showed pyuria and bacteriuria. Also positive for influenza A. Encephalopathy likely due to sepsis and septic shock. Head CT was done which was negative. #History of Parkinson's disease #History of depression At home, the patient is on carbo/levodopa, rivastigmine, pramipexole and sertraline. She reports having suicidal ideations right now. Apparently, she had attemptd suicide about two weeks ago. Will restart her home medication Plan: -Restart all medications -Crisis eval once medically clear. Ensure sitter or now. Cardiovascular #Septic shock #Urinary tract infection Rapid response was called last night as the patient'S MAP was in the 50s. She had received 3 L of fluids in the ED prior and was on maintenance. Awaiting to the ICU for pressor support. At bedside this morning, patient is AAO x 2, has no complaints. Currently on Levophed at 0.03. Lactic acid this morning at 1.5, previously was 3.9. Bedside ultrasound done, plethoric IVC, not collapsible. Will continue to titrate pressors for MAP greater than 65. Otherwise, labs reviewed, leukocytosis with WBC of 29, likely due to shock. Plan: -Continue to titrate pressors for MAP greater than 65 Respiratory #Influenza A On admission, the patient tested positive for influenza A. She was initially hypoxic, placed on nasal cannula 2 L but currently saturating 90% on room air. Unable to completely ascertain patient's symptoms as she only is able to answer certain questions. Chest x-ray unremarkable. Started on Tamiflu 75 mg and then 30 mg daily. Plan: -Continue Tamiflu GI #Transaminitis On admission, the patient had mild transaminitis, slightly more elevated today. Per chart review and on patient medications she is on a statin which could be contributing to transaminitis. Will hold statin for now. Renal No active conditions Endocrinology #History of prediabetes Patient has a history of prediabetes and at home was on metformin. A1c done is 9. Blood glucose within normal limits. Will continue to monitor blood glucose and start ISS if necessary. Heme #Leukocytosis The patient presented with normal WBC but overnight, WBCs now 21.1, likely due to shock. Continue to trend WBC ID #Sepsis secondary to UTI #Influenza -Continue IV antibiotics and pending cultures. Health maintenance: Dispo: ICU for septic shock Diet: Dysphagia 2 DVT: SC heparin Garcia: None Lines: Peripheral Code: Full Case was discussed with Dr Small PGY-2 and attending physician, Dr Farhad Ovalle MD PGY-1 Disclaimer: This note was dictated by speech recognition. Minor errors in dominatrix may be present due to voice recognition software.
--- NOTE | 2024-05-10 19:14 | PC.NURSE ---
At 1830 pateint states she attempted suicide two weeks ago by ingesting zoloft(was unsure of the quantity),which was provided by her granddaughter. She verbalizes ongoing suicidal thoughts, expressing feelings of being overwhelmed and that everything is caving in on her. The MD, charge nurse and oncoming nurse were informed.
[2024-05-10] MEDS: SERTRALINE HCL 25 MG TABLET 50 MG PO (20:16)
[2024-05-10] MEDS: MIDODRINE 5 MG TABLET 10 MG PO (21:14)
[2024-05-11] VITALS (21 sets, daily range): BP systolic 94–132; BP diastolic 54–82; PULSE 52–138; RESP 15–96; TEMP 36.5–37.3; O2SAT 96–99; BMI 21.6
[2024-05-11] MEDS: PIPER/TAZO 3.375 GM PREMIX 3.375 GM/50 ML BAG IV ×3 (05:09→21:21)
[2024-05-11] MEDS: MIDODRINE 5 MG TABLET 10 MG PO ×3 (05:09→21:20)
[2024-05-11] MEDS: HEPARIN SOD INJ 5000 UNIT/ML VIAL SC ×3 (05:11→21:21)
[2024-05-11 05:51] LABS: Basophils % (Auto) 0 % (0-2.5); Eosinophils % (Auto) 0 % (0-10); Hematocrit 35.9 % (36.0-46.0); Hemoglobin 11.3 g/dL (12.0-16.0); Immature Granulocytes % (Auto) 4 % (0-0); Immature Granulocytes Auto 0.73 Thou/mm3 (0.00-0.00); Lymphocytes # (Auto) 3.3 Thou/mm3 (1.0-4.8); Lymphocytes % (Auto) 17 % (10-50); Mean Corpuscular HGB Conc 31.5 g/dl (31.0-37.0); Mean Corpuscular Hemoglobin 28.5 pg (25.0-35.0); Mean Corpuscular Volume 91 fL (80-100); Monocytes # (Auto) 0.7 Thou/mm3 (0.0-0.8); Monocytes % (Auto) 4 % (0-12); Neutrophils # (Auto) 14.2 Thou/mm3 (1.8-7.7); Neutrophils % (Auto) 75 % (37-80); Nucleated Red Blood Cell % 0 /100 WBC (0); Platelet Count 117 Thou/mm3 (140-440); RDW Standard Deviation 55.2 fL (36.4-46.3); Red Blood Count 3.96 Miln/mm3 (4.00-5.20); White Blood Count 18.9 Thou/mm3 (3.6-11.0)
[2024-05-11 06:16] LABS: Alanine Aminotransferase 59 U/L (10-49); Albumin, Serum 3.1 gm/dL (3.4-4.8); Albumin/Globulin Ratio 1.8 (1.2-2.2); Alkaline Phosphatase 81 U/L (46-116); Anion Gap 12 (7-16); Aspartate Amino Transferase 40 U/L (0-34); BUN/Creatinine Ratio 24 Ratio (12-20); Bilirubin,Total 0.6 mg/dL (0.3-1.2); Blood Urea Nitrogen 19 mg/dL (9-23); Calcium 8.7 mg/dL (8.3-10.6); Calcium (Corrected) 9.4 mg/dL (8.5-10.1); Carbon Dioxide 21.8 mMol/L (20.0-31.0); Chloride 110 mMol/L (98-107); Creatinine (Component) 0.8 mg/dL (0.6-1.3); Estimated Creatinine Clearance 47.9 mL/min (>60); Globulin 1.7 gm/dL (2.3-3.5); Glucose 85 mg/dL (74-106); Magnesium 1.9 mg/dL (1.6-2.6); Osmolality,Calculated 288 (275-295); Phosphorous 3.5 mg/dL (2.4-5.1); Potassium 3.4 mMol/L (3.4-5.1); Sodium 144 mMol/L (136-145); Total Protein 4.8 gm/dL (5.7-8.2); eGFR > 60 See Note
[2024-05-11] MEDS: DOCUSATE SOD 100 MG CAPSULE PO (08:07)
[2024-05-11] MEDS: CARBIDOPA/LEVODOPA 25/100 MG TABLET 1 TAB PO (08:08)
[2024-05-11] MEDS: RIVASTIGMINE 4.5 MG PO ×2 (08:08→16:39)
[2024-05-11] MEDS: SENNA TABLET 1 TAB PO (08:08)
[2024-05-11] MEDS: PRAMIPEXOLE 0.25 MG TABLET 1 MG PO ×2 (08:08→21:20)
[2024-05-11] MEDS: OSELTAMIVIR 30 MG CAPSULE PO ×2 (08:08→21:21)
--- NOTE | 2024-05-11 08:37 | ECHO_ITS ---
Transthoracic Echo Report Ht (in): 63 Wt (lb): 121 Exam Location: Portable Status: Inpatient Beef Skinner: JAYE Egan^^^^ Indications: Procedure Performed: BP: 94 / 54 HR: 68 Technical Quality: Fair MEASUREMENTS (Male / Female) Normal Values 2D ECHO LV Diastolic Diameter PLAX 4.0 cm 4.2 - 5.9 / 3.9 - 5.3 cm LV Systolic Diameter PLAX 2.8 cm IVS Diastolic Thickness 0.9 cm 0.6 - 1.0 / 0.6 - 0.9 cm LVPW Diastolic Thickness 0.8 cm 0.6 - 1.0 / 0.6 - 0.9 cm LV Relative Wall Thickness 0.4 LVOT Diameter 1.6 cm Aortic Root Diameter 3.5 cm LA Systolic Diameter LX 3.3 cm 3.0 - 4.0 / 2.7 - 3.8 cm LA Volume Index 36.0 cm?/m? 16 - 28 cm?/m? Ascending Aorta Diameter 3.3 cm DOPPLER AV Peak Velocity 172.0 cm/s AV Peak Gradient 11.8 mmHg AV Mean Gradient 8.0 mmHg AV Velocity Time Integral 39.5 cm AI Peak Velocity 306.0 cm/s AI Peak Gradient 37.5 mmHg AI Pressure Half Time 1058.0 ms LVOT Peak Velocity 126.0 cm/s LVOT Peak Gradient 6.4 mmHg LVOT Velocity Time Integral 28.7 cm LVOT Cardiac Index 2509.2 cm?/min?m? AV Area Cont Eq vti 1.5 cm? AV Area Cont Eq pk 1.5 cm? MV Area PHT 3.1 cm? MR Peak Velocity 434.0 cm/s MR Peak Gradient 75.3 mmHg Mitral E Point Velocity 72.8 cm/s Mitral A Point Velocity 101.0 cm/s Mitral E to A Ratio 0.7 LV E' Lateral Velocity 8.7 cm/s Mitral E to LV E' Lateral Ratio 8.4 LV E' Septal Velocity 7.6 cm/s Mitral E to LV E' Septal Ratio 9.6 TR Peak Velocity 271.7 cm/s TR Peak Gradient 29.5 mmHg PV Peak Velocity 109.0 cm/s PV Peak Gradient 4.8 mmHg RVOT Peak Velocity 70.9 cm/s FINDINGS Left Ventricle Normal left ventricular size, wall thickness, systolic function with no obvious regional wall motion abnormalities. There is grade II diastolic dysfunction of the left ventricle (pseudonormal filling pattern). The left ventricular ejection fraction is normal, estimated at 55-60%. Right Ventricle The right ventricle is normal in size and systolic function. The estimated right ventricular systolic pressure, 40 mmHg. Left Atrium The left atrium is normal by two-dimensional, color flow and Doppler imaging with no structural abnormalities, no thrombus formation present. Right Atrium The right atrium is normal by two-dimensional imaging, color flow and Doppler imaging with no structural abnormalities, no thrombus formation present. Atrial Septum The interatrial septum appears normal with no evidence of a shunt. Aorta The aorta is normal by two-dimensional, color flow and Doppler interrogation. Mitral Valve [id number] mitral regurgitation. Mitral annular calcification. Aortic Valve Calcification of the non-coronary cusp. Aortic valve sclerosis. Tricuspid Valve There is mild to moderate tricuspid valve regurgitation. Pulmonic Valve Trivial pulmonic valve regurgitation. Vessels The pulmonary artery appears normal. The inferior vena cava pulmonary and hepatic veins appear normal. Pericardium The pericardium is normal by two-dimensional imaging. There is no significant pericardial effusion. CONCLUSIONS Indication: Shock Normal LV size and function with normal LVEF at 55 to 60%. Stage II diastolic dysfunction. Mild LVH. Normal RV size and function. Mildly elevated RVSP at 40 mmHg. Moderate aortic valve sclerosis with moderately calcified NCC. Mild MR with mild MAC and mild to moderate TR. No pericardial effusion. Mildly dilated left atrium. No pericardial effusion. Roman Bailey (Electronically Signed) Final Date: 11 May 2024 16:10
--- NOTE | 2024-05-11 10:46 | ESPR_ITS ---
<Statement entered by Lan Llamas MD - 05/12/24 14:54> TOTAL TIME: 45MINUTES ON DIRECT MEDICAL CARE, MANAGEMENT - COORDINATION AND COUNSELING > 50% OF TOTAL TIME I saw and evaluated the patient. I reviewed the resident?s note and agree with findings and plan as documented in the resident?s note. improved - off pressors - passed swallow eval w/ modified diet stable to transfer out of icu <Statement entered by Devin Arellano MD - 05/11/24 11:03> Patient was examined bedside this morning, she has been off Levophed since yesterday. pending urine culture , will need crisis prior discharge .stable to Downgrade to floors I discussed with and supervised my co-resident involved in the care of this patient. I agree with the assessment and plan as documented above. Devin Arellano,PGY-3 Disclaimer: Despite multiple revisions, due to the dictation software being used, the document below may not be free of grammatical errors including phonetic/typographic errors. However, this does not deter from our commitment to providing health care in the patient's best interest in mind. Documentation for date of: 05/11/24 Subjective Subjective Interval history: 05/10/2024- Patient seen and examined at bedside. She is a 79-year-old female with a past medical history of Parkinson's disease, depression and hyperlipidemia presented with altered mental status. Admitted for sepsis secondary to UTI as well as influenza. Rapid response was called last night as the patient'S MAP was in the 50s. She had received 3 L of fluids in the ED prior and was on maintenance. Awaiting to the ICU for pressor support. At bedside this morning, patient is AAO x 2, has no complaints. Currently on Levophed at 0.03. Lactic acid this morning at 1.5, previously was 3.9. Bedside ultrasound done, plethoric IVC, not collapsible. Will continue to titrate pressors for MAP greater than 65. Otherwise, labs reviewed, leukocytosis with WBC of 29, likely due to shock. Will continue IV antibiotics 05/11/2024- Patient seen and examined at bedside. Had an episode of bradycardia through the night, patient was sleeping and asymptomatic. The mentation is back to baseline patient is AAOx3. She has been off of Levophed and MAP staying above 65. Patient did endorse suicidal ideations yesterday and currently has a one-to-one sitter, pending crisis evaluation. Patient passed swallow eval yesterday, started on dysphagia to mechanical altered diet. Labs reviewed, downtrending leukocytosis. Urine culture positive for GNR, pending final. Still on IV Zosyn, will likely de-escalate antibiotics based on sensitivity. Patient is stable to be downgraded to the floors, for internal medicine team to take over management. Exam Vital Signs Temp Pulse Resp BP Pulse Ox O2 Del Method O2 Flow Rate 98.7 F 62 17 104/63 96 Room Air 4 05/11/24 08:00 05/11/24 09:00 05/11/24 09:00 05/11/24 09:00 05/11/24 09:00 05/11/24 08:00 05/09/24 13:00 Narrative Exam GENERAL: AAOX2, Lethargic NEURO: OB TECH grossly intact, moves extremities x4 HEENT: Dry mucosa. Eyes open, symmetrical, & clear CARDIO: No chest pain on palpation. Heart RRR, no obvious murmurs PULM: No noted coughing/dyspnea. Lungs CTA B/L GI: Abdomen soft, nondistended, no pain on palpation. BSx4 URO/VIBRATING SCREED OPERATOR:: No further abnormalities noted. SKIN/MSK/EXT: No wounds/rashes/edema/amputations, no pain on palpation. Pedal pulses present B/L Objective Labs 05/11/24 04:54 05/11/24 04:54 Labs: Laboratory Results - last 24 hr 05/11/24 04:54 WBC 18.9 H D RBC 3.96 L Hgb 11.3 L Hct 35.9 L MCV 91 MCH 28.5 MCHC 31.5 RDW Std Deviation 55.2 H Plt Count 117 L D Neut % (Auto) 75 Lymph % (Auto) 17 [place] % (Auto) 4 Eos % (Auto) 0 Baso % (Auto) 0 Neut # (Auto) 14.2 H Lymph # (Auto) 3.3 [place] # (Auto) 0.7 Eos # (Auto) 0.0 Baso # (Auto) 0.0 Immature Gran # (Auto) 0.73 H Absolute Nucleated RBC 0.00 Immature Gran % 4 H Nucleated RBC % 0 Sodium 144 Potassium 3.4 Chloride 110 H Carbon Dioxide 21.8 Anion Gap 12 BUN 19 Creatinine 0.8 Estim Creat Clear Calc 47.9 L eGFR > 60 BUN/Creatinine Ratio 24 H Glucose 85 Calculated Osmolality 288 Calcium 8.7 Corrected Calcium 9.4 Phosphorus 3.5 Magnesium 1.9 Total Bilirubin 0.6 AST 40 H ALT 59 H Alkaline Phosphatase 81 Total Protein 4.8 L Albumin 3.1 L Globulin 1.7 L Albumin/Globulin Ratio 1.8 Quality Measures Quality Measures sepsis Current suspected stage: sepsis Possible source: genitourinary Blood cultures ordered: yes Antibiotic ordered: Yes Advance care planning discussed with:: patient Assessment & Plan Assessment Current Active Medications: Generic Name Dose Route Start Last Admin Trade Name Freq PRN Reason Stop Dose Admin Acetaminophen 650 mg 05/09/24 16:33 Acetaminophen 325 Mg Tablet PO 06/08/24 16:32 Q6H PRN Fever >101.5 Acetaminophen 650 mg 05/09/24 16:33 Acetaminophen 325 Mg Tablet PO 06/08/24 16:32 Q6H PRN PAIN SCALE 1-3 (mild Acetaminophen 650 mg 05/11/24 09:26 Acetaminophen Supp 650 Mg Supp OK 06/08/24 22:40 Q6HR PRN PAIN 1-3 OR FEVER > 101 Carbidopa/Levodopa 1 tab 05/10/24 09:00 05/11/24 08:08 Carbidopa/Levodopa 25/100 Mg Tablet PO 06/09/24 08:59 1 tab QDAY TITA Administration Rivastigmine 4.5 Mg 0 ea 05/10/24 12:00 05/11/24 08:08 Capsule PO 06/09/24 11:59 1 capsule BIDWM TITA Administration Dextrose 25 ml 05/09/24 16:55 Dextrose 50%-Water Inj 50 Ml Syringe IV 06/08/24 16:54 Q15MIN PRN BG 50-70 responsive npo pt Dextrose 50 ml 05/09/24 16:55 Dextrose 50%-Water Inj 50 Ml Syringe IV 06/08/24 16:54 Q15MIN PRN BG <50 OR BG <70 & pt unresponsive Glucagon 1 mg 05/09/24 16:55 Glucagon Inj 1 Mg Vial IM Q15MIN PRN BG <70, and no IV access Heparin Sodium (Porcine) 5,000 unit 05/09/24 22:00 05/11/24 05:11 Heparin Sod Inj 5000 Unit/Ml Vial SC 05/23/24 21:59 5,000 unit Q8HR TITA Administration Piperacillin/Tazobactam/Dextrose 3.375 gm in 50 mls @ 12.5 mls/hr 05/09/24 21:00 05/11/24 05:09 Zosyn IV 05/16/24 20:59 12.5 mls/hr Q8HR TITA Administration Midodrine 10 mg 05/10/24 22:00 05/11/24 05:09 Midodrine 5 Mg Tablet PO 06/09/24 21:59 10 mg TID TITA Administration Ondansetron HCl 4 mg 05/09/24 16:33 Ondansetron Inj 2 Mg/Ml Inj 2 Ml IV 06/08/24 16:32 Q6H PRN NAUSEA OR VOMITING Protocol Oseltamivir Phosphate 30 mg 05/10/24 09:00 05/11/24 08:08 Oseltamivir 30 Mg Capsule PO 05/14/24 09:01 30 mg BID TITA Administration Pramipexole Dihydrochloride 1 mg 05/10/24 09:00 05/11/24 08:08 Pramipexole 0.25 Mg Tablet PO 06/09/24 08:59 1 mg BID TITA Administration Sertraline HCl 50 mg 05/10/24 21:00 05/10/24 20:16 Sertraline Hcl 25 Mg Tablet PO 06/09/24 20:59 50 mg HS TITA Administration Plan Summary: The patient is a 79-year-old female with past medical history of Parkinson disease, depression and hyperlipidemia who presented to the ED on 05/09/2024 with altered mental status and was admitted for sepsis secondary to UTI as well as influenza. Admitted to the ICU for septic shock requiring pressors. Neuro #Acute encephalopathy-resolved Patient presented altered and confused per daughter. On admission, UA showed pyuria and bacteriuria. Also positive for influenza A. Encephalopathy likely due to sepsis and septic shock. Head CT was done which was negative. #History of Parkinson's disease #History of depression with suicidal ideations At home, the patient is on carbo/levodopa, rivastigmine, pramipexole and sertraline. She reports having suicidal ideations right now. Apparently, she had attemptd suicide about two weeks ago. Will restart her home medication 05/11/2024-patient currently patient on sertraline, has a one-to-one sitter. Pending crisis eval once medically cleared. Plan: -Continue sertraline, keep on one-to-one sitter -Crisis eval once medically clear. Cardiovascular #Septic shock-resolved #Urinary tract infection #GNR UTI Rapid response was called last night as the patient'S MAP was in the 50s. She had received 3 L of fluids in the ED prior and was on maintenance. Awaiting to the ICU for pressor support. At bedside this morning, patient is AAO x 2, has no complaints. Currently on Levophed at 0.03. Lactic acid this morning at 1.5, previously was 3.9. Bedside ultrasound done, plethoric IVC, not collapsible. Will continue to titrate pressors for MAP greater than 65. Otherwise, labs reviewed, leukocytosis with WBC of 29, likely due to shock. 05/11/2024-patient off of pressors, MAP above 65. #Asymptomatic bradycardia Patient noted to be intermittently bradycardic, especially when sleeping at night. Usually asymptomatic. Recommend to decrease dose of midodrine to 5 TID if persistent. Respiratory #Influenza A On admission, the patient tested positive for influenza A. She was initially hypoxic, placed on nasal cannula 2 L but currently saturating 90% on room air. Unable to completely ascertain patient's symptoms as she only is able to answer certain questions. Chest x-ray unremarkable. Started on Tamiflu 75 mg and then 30 mg daily. Plan: -Continue Tamiflu GI #Transaminitis On admission, the patient had mild transaminitis, slightly more elevated today. Per chart review and on patient medications she is on a statin which could be contributing to transaminitis. Will hold statin for now. Renal No active conditions Endocrinology #History of prediabetes Patient has a history of prediabetes and at home was on metformin. A1c done is 9. Blood glucose within normal limits. Will continue to monitor blood glucose and start ISS if necessary. Heme #Leukocytosis, improving The patient presented with normal WBC but overnight, WBCs now 21.1, likely due to shock. Continue to trend WBC ID #Sepsis secondary to UTI #Influenza -Continue IV antibiotics and pending cultures. Health maintenance: Dispo: ICU for septic shock---> downgraded to telemetry Diet: Dysphagia 2 DVT: SC heparin Garcia: None Lines: Peripheral Code: Full Case was discussed with Dr Arellano PGY-3 and attending physician, Dr Farhad Ovalle MD PGY-1 Disclaimer: This note was dictated by speech recognition. Minor errors in box spring upholsterer may be present due to voice recognition software.
--- NOTE | 2024-05-11 11:03 | PC.SS ---
Patient currently in ICU. Notes indicate altered. SS spoke to patient's daughter, Cindi via p/c. Cindi states she will remain the point of contact as well as alt medical decision maker. Patient was admitted for sepsis and UTI. Patient's daughter states she and her daughter, Fanta, moved in with patient to help care for her. Patient baseline is alert/oriented. She has been declining. She now wears a brief and is incontinent. Patient ambulates with assist. She uses a walker at home. However, daughter states they will need a wheelchair upon discharge. Family provides transportation assistance to all appointments and outings. Family denies having any HH services prior to hospitalization. Daughter was requesting information about applying for [employer]. Patient's spouse last year so patient no longer receives that income. Daughter is hopeful patient can qualify so they can apply for [employer]. PCP: Dr. Anderson. Daughter prefers the d/c plan be to have patient return home with HH services and she will always have 24/7 care at home with family. SS will contact financial counselor to follow up with family. Alt medical decision maker: Cindi, daughter, transportation: family d/c plan: Home with HH
--- NOTE | 2024-05-11 12:00 | ESPR_ITS ---
<Statement entered by Nu Heredia MD - 05/11/24 18:24> Patient seen and examined at bedside. Received signout from ICU team this morning. Patient A&O x 3. Patient required vasopressor support until 11 PM last night, and blood pressure has been stable since then. Patient has noted to be suicidal at times, and will require crisis evaluation after patient is medically cleared. Patient is currently on IV Zosyn and sensitive to Klebsiella which grew on urine culture. Patient is also positive for influenza A, and will continue with Tamiflu. I discussed with and supervised the senior internal auditor physician who took care of this patient. I personally saw and examined the patient and discussed the assessment and plan with the entire medicine team, including my attending Dr. Negrete, I agree with most of the assessment and plan as documented below Nu Heredia M.D. PGY-2 Documentation for date of: 05/11/24 Subjective Subjective Interval history: Downgraded this a.m. from ICU signout received by ICU team. Patient seen today at the bedside found awake, alert, oriented x 3. No overnight events reported. Vital signs stable at this time. Labs show downtrending leukocytosis, rest of labs stable at this time. Currently patient had suicidal times prior to admission and is having suicidal ideation p.o. sertraline was resumed patient will likely require crisis evaluation at this time. Urine cultures grew positive for Klebsiella patient currently on appropriate antibiotics Zosyn we will continue at this time. Exam Vital Signs Temp Pulse Resp BP Pulse Ox O2 Del Method O2 Flow Rate 98.7 F 62 17 104/63 96 Room Air 4 05/11/24 08:00 05/11/24 09:00 05/11/24 09:00 05/11/24 09:00 05/11/24 09:00 05/11/24 08:00 05/09/24 13:00 Narrative Exam GENERAL: AAOX2, Lethargic NEURO: POTATO GRADER grossly intact, moves extremities x4 HEENT: Dry mucosa. Eyes open, symmetrical, & clear CARDIO: No chest pain on palpation. Heart RRR, no obvious murmurs PULM: No noted coughing/dyspnea. Lungs CTA B/L GI: Abdomen soft, nondistended, no pain on palpation. BSx4 URO/OCEANOGRAPHER ASSISTANT:: No further abnormalities noted. SKIN/MSK/EXT: No wounds/rashes/edema/amputations, no pain on palpation. Pedal pulses present B/L Objective Labs 05/11/24 04:54 05/11/24 04:54 Labs: Laboratory Results - last 24 hr 05/11/24 04:54 WBC 18.9 H D RBC 3.96 L Hgb 11.3 L Hct 35.9 L MCV 91 MCH 28.5 MCHC 31.5 RDW Std Deviation 55.2 H Plt Count 117 L D Neut % (Auto) 75 Lymph % (Auto) 17 [place] % (Auto) 4 Eos % (Auto) 0 Baso % (Auto) 0 Neut # (Auto) 14.2 H Lymph # (Auto) 3.3 [place] # (Auto) 0.7 Eos # (Auto) 0.0 Baso # (Auto) 0.0 Immature Gran # (Auto) 0.73 H Absolute Nucleated RBC 0.00 Immature Gran % 4 H Nucleated RBC % 0 Sodium 144 Potassium 3.4 Chloride 110 H Carbon Dioxide 21.8 Anion Gap 12 BUN 19 Creatinine 0.8 Estim Creat Clear Calc 47.9 L eGFR > 60 BUN/Creatinine Ratio 24 H Glucose 85 Calculated Osmolality 288 Calcium 8.7 Corrected Calcium 9.4 Phosphorus 3.5 Magnesium 1.9 Total Bilirubin 0.6 AST 40 H ALT 59 H Alkaline Phosphatase 81 Total Protein 4.8 L Albumin 3.1 L Globulin 1.7 L Albumin/Globulin Ratio 1.8 Quality Measures Quality Measures sepsis Current suspected stage: ruled out Possible source: genitourinary Blood cultures ordered: yes Antibiotic ordered: Yes Advance care planning discussed with:: patient Assessment & Plan Assessment Current Active Medications: Generic Name Dose Route Start Last Admin Trade Name Freq PRN Reason Stop Dose Admin Acetaminophen 650 mg 05/09/24 16:33 Acetaminophen 325 Mg Tablet PO 06/08/24 16:32 Q6H PRN Fever >101.5 Acetaminophen 650 mg 05/09/24 16:33 Acetaminophen 325 Mg Tablet PO 06/08/24 16:32 Q6H PRN PAIN SCALE 1-3 (mild Acetaminophen 650 mg 05/11/24 09:26 Acetaminophen Supp 650 Mg Supp [place] 06/08/24 22:40 Q6HR PRN PAIN 1-3 OR FEVER > 101 Carbidopa/Levodopa 1 tab 05/10/24 09:00 05/11/24 08:08 Carbidopa/Levodopa 25/100 Mg Tablet PO 06/09/24 08:59 1 tab QDAY TITA Administration Rivastigmine 4.5 Mg 0 ea 05/10/24 12:00 05/11/24 08:08 Capsule PO 06/09/24 11:59 1 capsule BIDWM TITA Administration Dextrose 25 ml 05/09/24 16:55 Dextrose 50%-Water Inj 50 Ml Syringe IV 06/08/24 16:54 Q15MIN PRN BG 50-70 responsive npo pt Dextrose 50 ml 05/09/24 16:55 Dextrose 50%-Water Inj 50 Ml Syringe IV 06/08/24 16:54 Q15MIN PRN BG <50 OR BG <70 & pt unresponsive Glucagon 1 mg 05/09/24 16:55 Glucagon Inj 1 Mg Vial IM Q15MIN PRN BG <70, and no IV access Heparin Sodium (Porcine) 5,000 unit 05/09/24 22:00 05/11/24 05:11 Heparin Sod Inj 5000 Unit/Ml Vial SC 05/23/24 21:59 5,000 unit Q8HR TITA Administration Piperacillin/Tazobactam/Dextrose 3.375 gm in 50 mls @ 12.5 mls/hr 05/09/24 21:00 05/11/24 05:09 Zosyn IV 05/16/24 20:59 12.5 mls/hr Q8HR TITA Administration Midodrine 10 mg 05/10/24 22:00 05/11/24 05:09 Midodrine 5 Mg Tablet PO 06/09/24 21:59 10 mg TID TITA Administration Ondansetron HCl 4 mg 05/09/24 16:33 Ondansetron Inj 2 Mg/Ml Inj 2 Ml IV 06/08/24 16:32 Q6H PRN NAUSEA OR VOMITING Protocol Oseltamivir Phosphate 30 mg 05/10/24 09:00 05/11/24 08:08 Oseltamivir 30 Mg Capsule PO 05/14/24 09:01 30 mg BID TITA Administration Pramipexole Dihydrochloride 1 mg 05/10/24 09:00 05/11/24 08:08 Pramipexole 0.25 Mg Tablet PO 06/09/24 08:59 1 mg BID TITA Administration Sertraline HCl 50 mg 05/10/24 21:00 05/10/24 20:16 Sertraline Hcl 25 Mg Tablet PO 06/09/24 20:59 50 mg HS TITA Administration Plan Summary: The patient is a 79-year-old female with past medical history of Parkinson disease, depression and hyperlipidemia who presented to the ED on 05/09/2024 with altered mental status and was admitted for sepsis secondary to UTI as well as influenza. Admitted to the ICU for septic shock requiring pressors. #Acute encephalopathy-resolved Patient presented altered and confused per daughter. On admission, UA showed pyuria and bacteriuria. Also positive for influenza A. Encephalopathy likely due to sepsis and septic shock. Head CT was done which was negative. #History of Parkinson's disease #History of depression with suicidal ideations At home, the patient is on carbo/levodopa, rivastigmine, pramipexole and sertraline. She reports having suicidal ideations right now. Apparently, she had attemptd suicide about two weeks ago. Will restart her home medication 05/11/2024-patient currently patient on sertraline, has a one-to-one sitter. Pending crisis eval once medically cleared. -Continue sertraline -keep on one-to-one sitter -Crisis eval once medically clear. #GNR Urinary tract infection Rapid response was called last night as the patient'S MAP was in the 50s. She had received 3 L of fluids in the ED prior and was on maintenance. Awaiting to the ICU for pressor support. At bedside this morning, patient is AAO x 2, has no complaints. Currently on Levophed at 0.03. Lactic acid this morning at 1.5, previously was 3.9. Bedside ultrasound done, plethoric IVC, not collapsible. Will continue to titrate pressors for MAP greater than 65. Otherwise, labs reviewed, leukocytosis with WBC of 29, likely due to shock. 05/11/2024-patient off of pressors, MAP above 65. - Continue IV antibiotics -f/u cultures #Influenza A On admission, the patient tested positive for influenza A. She was initially hypoxic, placed on nasal cannula 2 L but currently saturating 90% on room air. Unable to completely ascertain patient's symptoms as she only is able to answer certain questions. Chest x-ray unremarkable. Started on Tamiflu 75 mg and then 30 mg daily. -Continue Tamiflu #Asymptomatic bradycardia Patient noted to be intermittently bradycardic, especially when sleeping at night. Usually asymptomatic. Recommend to decrease dose of midodrine to 5 TID if persistent. #Transaminitis On admission, the patient had mild transaminitis, slightly more elevated today. Per chart review and on patient medications she is on a statin which could be contributing to transaminitis. -Will hold statin for now. #History of prediabetes Patient has a history of prediabetes and at home was on metformin. A1c done is 9. Blood glucose within normal limits. #Leukocytosis, improving The patient presented with normal WBC but overnight, WBCs now 21.1, likely due to shock. Continue to trend WBC #Septic shock-resolved Case was discussed with my senior Dr. Heredia PGY-[address] Caden Caro MD PGY-1 Dispo: ICU for septic shock---> downgraded to telemetry Diet: Dysphagia 2 DVT: SC heparin Garcia: None Lines: Peripheral Code: Full Attending Provider Attestation/Addendum I have discussed and was present for the essential components of the history, physical examination, diagnosis, and treatment plan with the resident. I agree with the patient's care as documented by the resident and amended herein by me. Jt Negrete DO. Although this document has been carefully reviewed, there may still be some phonetic and other typographical errors. These errors are purely grammatical due to imperfections in the software program and should not be construed in any way to compromise the substance of the patient's medical care during this visit.
[2024-05-11] MEDS: ONDANSETRON INJ 2 MG/ML INJ 2 ML 4 MG IV (13:23)
[2024-05-11] MEDS: POTASSIUM CHLORIDE 10% 20 MEQ/15 ML UDC 40 MEQ PO (13:23)
--- NOTE | 2024-05-11 13:53 | EKG_ITS ---
[facility] Test Date: 2024-05-11 Pat Name: LEO MONK [facility] Female Metal Room Dental Technician: AMANDA : 1945 Requested By: Tonny Caro Order Number: [id number] Reading MD: Tonny Caro Measurements Intervals [place] Rate: 65 P: 42 NM: 130 QRS: -20 QRSD: 94 T: -11 QT: 404 QTc: 423 Interpretive Statements SINUS RHYTHM LOW QRS VOLTAGE IN PRECORDIAL LEADS POSSIBLE ANTERIOR MYOCARDIAL INFARCTION , OF INDETERMINATE AGE Compared to ECG 05/09/2024 13:40:14 Sinus tachycardia no longer present Myocardial infarct finding still present /store/S0/[id number].pdf
[2024-05-11] MEDS: SERTRALINE HCL 25 MG TABLET 50 MG PO (21:20)
[2024-05-12] VITALS (10 sets, daily range): BP systolic 103–138; BP diastolic 61–73; PULSE 55–89; RESP 15–24; TEMP 36.4–37; O2SAT 95–97; BMI 21.6
[2024-05-12] MEDS: HEPARIN SOD INJ 5000 UNIT/ML VIAL SC ×3 (05:23→21:21)
[2024-05-12] MEDS: PIPER/TAZO 3.375 GM PREMIX 3.375 GM/50 ML BAG IV (05:26)
[2024-05-12 06:15] LABS: Basophils % (Auto) 0 % (0-2.5); Eosinophils % (Auto) 0 % (0-10); Hematocrit 32.8 % (36.0-46.0); Hemoglobin 10.6 g/dL (12.0-16.0); Immature Granulocytes % (Auto) 1 % (0-0); Immature Granulocytes Auto 0.17 Thou/mm3 (0.00-0.00); Lymphocytes % (Auto) 27 % (10-50); Mean Corpuscular HGB Conc 32.3 g/dl (31.0-37.0); Mean Corpuscular Hemoglobin 28.7 pg (25.0-35.0); Mean Corpuscular Volume 89 fL (80-100); Monocytes # (Auto) 0.3 Thou/mm3 (0.0-0.8); Monocytes % (Auto) 2 % (0-12); Neutrophils # (Auto) 10.6 Thou/mm3 (1.8-7.7); Neutrophils % (Auto) 70 % (37-80); Nucleated Red Blood Cell % 0 /100 WBC (0); Platelet Count 229 Thou/mm3 (140-440); RDW Standard Deviation 54.1 fL (36.4-46.3); Red Blood Count 3.69 Miln/mm3 (4.00-5.20); White Blood Count 15.1 Thou/mm3 (3.6-11.0)
[2024-05-12 06:35] LABS: Alanine Aminotransferase 35 U/L (10-49); Alkaline Phosphatase 71 U/L (46-116); Anion Gap 8 (7-16); Aspartate Amino Transferase 18 U/L (0-34); BUN/Creatinine Ratio 23 Ratio (12-20); Bilirubin,Total 0.4 mg/dL (0.3-1.2); Blood Urea Nitrogen 18 mg/dL (9-23); Calcium (Corrected) 8.8 mg/dL (8.5-10.1); Chloride 112 mMol/L (98-107); Creatinine (Component) 0.8 mg/dL (0.6-1.3); Estimated Creatinine Clearance 45.8 mL/min (>60); Globulin 1.5 gm/dL (2.3-3.5); Glucose 95 mg/dL (74-106); Magnesium 2.1 mg/dL (1.6-2.6); Osmolality,Calculated 286 (275-295); Phosphorous 3.1 mg/dL (2.4-5.1); Potassium 3.8 mMol/L (3.4-5.1); Sodium 143 mMol/L (136-145); Total Protein 4.5 gm/dL (5.7-8.2); eGFR > 60 See Note
--- NOTE | 2024-05-12 09:46 | PC.SS ---
APPRENTICE COSMETOLOGIST informed by charge nurse that patient in possession of 1:1 sitter due to endorsing suicidal ideation.? APPRENTICE COSMETOLOGIST informed that patient reports attempted suicide two weeks ago by ingesting Zoloft and that the patient verbalized ongoing suicidal thoughts to bedside nurse on 05-10-24.
--- NOTE | 2024-05-12 09:46 | PC.SS ---
METAL PUNCH PRESS OPERATOR conducted phone contact with the patient?s daughter, Cindi ([phone]); to discuss if patient possesses a history of self-harm behaviors.? Daughter denied that patient possesses a history of self-harm behaviors.? Daughter stated that patient has made comments in the past ?about being tired having Parkinson?s? but has not generated detailed statements indicating intent/plan to harm self or others.? Daughter confirmed that patient possesses a diagnosis of depression.? Patient is prescribed Zoloft.? Daughter and granddaughter manage the dispensing of the patient?s medication.? Patient does not self-administer medications.? Patient has either daughter or granddaughter with her 24 hours a day.?
[2024-05-12] MEDS: CARBIDOPA/LEVODOPA 25/100 MG TABLET 1 TAB PO (10:16)
[2024-05-12] MEDS: POTASSIUM CHLORIDE 10% 20 MEQ/15 ML UDC PO (10:16)
[2024-05-12] MEDS: PRAMIPEXOLE 0.25 MG TABLET 1 MG PO ×2 (10:16→21:21)
[2024-05-12] MEDS: OSELTAMIVIR 30 MG CAPSULE PO ×2 (10:16→21:21)
[2024-05-12] MEDS: RIVASTIGMINE 4.5 MG PO ×2 (10:17→18:15)
[2024-05-12] MEDS: cefTRIAXone/D5w 1gm IV premix 1 GM/50 ML BAG IV (10:17)
--- NOTE | 2024-05-12 10:33 | PC.DIETICIAN ---
Addendum by Danny Garcia PhD, RD - 05/12/2024 at 1000: wire stretcher for right heel pressure injury. Photos reviewed; recommend adding Vitamin C 500mg BID, zinc 220mg daily for 14 days, and a daily multivitamin-mineral. Pt is on a modified low-protein diet, which presents a challenge, as increased protein is necessary to support optimal wound healing.
--- NOTE | 2024-05-12 10:48 | PC.SS ---
CODING COMPLIANCE SPECIALIST conducted bedside contact with the patient. Patient alert/oriented X3. Patient denies current possession of suicidal ideation. Patient confirmed that medications are dispensed to the patient by either the patient's daughter or the patient's granddaughter. No safety concerns reported by the patient. Chart review indicates that the patient does not possess a diagnosis of dementia.
--- NOTE | 2024-05-12 12:53 | ESPR_ITS ---
<Statement entered by Radha Small MD - 05/12/24 14:31> Patient seen and examined. No acute overnight events. Leukocytosis improving. CMP unremarkable blood culture preliminarily 1 out of 2 bottles reveal GPC, will follow-up with final blood cultures. Urine culture revealed Klebsiella pneumonia sensitive to ceftriaxone, Zosyn was de-escalated to ceftriaxone. Continue medical maintain 3 times daily. Patient will have a coccyx evaluation most likely today. Anticipate discharge in the next 24 hours. I personally saw and examined the patient and discussed the assessment and plan with the entire medicine team, including my attending Dr. Negrete, Radha Small M.D. PGY-2 Disclaimer: Despite multiple revisions, due to the dictation software being used, the document bellow may not be free of grammatical errors including phonetic/typographic errors. However, this does not deter from our commitment to providing health care in the patient's best interest in mind. Documentation for date of: 05/12/24 Subjective Subjective Interval history: No overnight events reported. Urine culture positive for Klebsiella pneumoniae. 1 out of 2 blood cultures showing gram-positive rods from anaerobic bottle pending final results. Likely contamination. Repeat blood cultures. Patient stated she was having suicidal ideations but no plan crisis prevention following. Continue ceftriaxone and continue Tamiflu 30 mg p.o. twice daily until 05/14/2024. Sitter at bedside for suicidal ideation. Exam Vital Signs Temp Pulse Resp BP Pulse Ox O2 Del Method O2 Flow Rate 97.7 F 56 L 15 103/61 96 Room Air 4 05/12/24 11:33 05/12/24 11:05/12/24 11:05/12/24 11:33 05/12/24 11:05/12/24 11:05/09/24 13:00 Narrative Exam General Appearance: Alert & Oriented X3, well-nourished female who is lying in bed in no acute distress HEENT: Skull symmetrical and atraumatic. Conjunctivae pin and moist. Pupils equal, round, reactive to light and accommodation (PERRL). External ear without lesion or discharge. Straight, nares patient, mucosa pink, no discharge. No thyroid nodule appreciated. No cervical lymphadenopathy. Cardio: Normal Rate and Rhythm with S1 and S2 heart sounds. No murmurs or extra heart sounds auscultated. No bruits on carotid auscultation. No peripheral edema or cyanosis. Lungs: Symmetric with good expansion. Chest and back non-tender. Breath sounds vesicular without crackles, wheezing or rhonchi Abdomen: Non-tender, Non-distended, Normal Reactive Bowel Sounds Neuro: Alert, cooperative, oriented to person, place, and time. Speech clear. CN grossly intact. Upper motor strength 5/5 and Lower motor strength 5/5. Sensation intact. Objective Labs 05/12/24 04:57 05/12/24 04:57 Labs: Laboratory Results - last 24 hr 05/12/24 04:57 WBC 15.1 H RBC 3.69 L Hgb 10.6 L Hct 32.8 L MCV 89 MCH 28.7 MCHC 32.3 RDW Std Deviation 54.1 H Plt Count 229 D Neut % (Auto) 70 Lymph % (Auto) 27 Trigg % (Auto) 2 Eos % (Auto) 0 Baso % (Auto) 0 Neut # (Auto) 10.6 H Lymph # (Auto) 4.0 Trigg # (Auto) 0.3 Eos # (Auto) 0.0 Baso # (Auto) 0.0 Immature Gran # (Auto) 0.17 H Absolute Nucleated RBC 0.00 Immature Gran % 1 H Nucleated RBC % 0 Sodium 143 Potassium 3.8 Chloride 112 H Carbon Dioxide 23.0 Anion Gap 8 BUN 18 Creatinine 0.8 Estim Creat Clear Calc 45.8 L eGFR > 60 BUN/Creatinine Ratio 23 H Glucose 95 Calculated Osmolality 286 Calcium 8.0 L Corrected Calcium 8.8 Phosphorus 3.1 Magnesium 2.1 Total Bilirubin 0.4 AST 18 ALT 35 Alkaline Phosphatase 71 Total Protein 4.5 L Albumin 3.0 L Globulin 1.5 L Albumin/Globulin Ratio 2.0 Quality Measures Quality Measures sepsis Current suspected stage: ruled out Possible source: genitourinary Blood cultures ordered: yes Antibiotic ordered: Yes Advance care planning discussed with:: patient Assessment & Plan Assessment Current Active Medications: Generic Name Dose Route Start Last Admin Trade Name Freq PRN Reason Stop Dose Admin Acetaminophen 650 mg 05/09/24 16:33 Acetaminophen 325 Mg Tablet PO 06/08/24 16:32 Q6H PRN Fever >101.5 Acetaminophen 650 mg 05/09/24 16:33 Acetaminophen 325 Mg Tablet PO 06/08/24 16:32 Q6H PRN PAIN SCALE 1-3 (mild Acetaminophen 650 mg 05/11/24 09:26 Acetaminophen Supp 650 Mg Supp MN 06/08/24 22:40 Q6HR PRN PAIN 1-3 OR FEVER > 101 Carbidopa/Levodopa 1 tab 05/10/24 09:00 05/12/24 10:16 Carbidopa/Levodopa 25/100 Mg Tablet PO 06/09/24 08:59 1 tab QDAY TITA Administration Rivastigmine 4.5 Mg 0 ea 05/10/24 12:00 05/12/24 10:17 Capsule PO 06/09/24 11:59 1 capsule BIDWM TITA Administration Dextrose 25 ml 05/09/24 16:55 Dextrose 50%-Water Inj 50 Ml Syringe IV 06/08/24 16:54 Q15MIN PRN BG 50-70 responsive npo pt Dextrose 50 ml 05/09/24 16:55 Dextrose 50%-Water Inj 50 Ml Syringe IV 06/08/24 16:54 Q15MIN PRN BG <50 OR BG <70 & pt unresponsive Glucagon 1 mg 05/09/24 16:55 Glucagon Inj 1 Mg Vial IM Q15MIN PRN BG <70, and no IV access Heparin Sodium (Porcine) 5,000 unit 05/09/24 22:00 05/12/24 05:23 Heparin Sod Inj 5000 Unit/Ml Vial SC 05/23/24 21:59 5,000 unit Q8HR TITA Administration Ceftriaxone Sodium/Dextrose 1 gm in 50 mls @ 100 mls/hr 05/12/24 08:00 05/12/24 10:17 Rocephin/D5w 1gm Iv Premix IV 05/19/24 07:59 100 mls/hr QDAY TITA Administration Midodrine 10 mg 05/12/24 05:27 05/12/24 05:26 Midodrine 5 Mg Tablet PO 06/09/24 21:59 Not Given TID TITA Ondansetron HCl 4 mg 05/09/24 16:33 05/11/24 13:23 Ondansetron Inj 2 Mg/Ml Inj 2 Ml IV 06/08/24 16:32 4 mg Q6H PRN Administration NAUSEA OR VOMITING Protocol Oseltamivir Phosphate 30 mg 05/10/24 09:00 05/12/24 10:16 Oseltamivir 30 Mg Capsule PO 05/14/24 09:01 30 mg BID TITA Administration Pramipexole Dihydrochloride 1 mg 05/10/24 09:00 05/12/24 10:16 Pramipexole 0.25 Mg Tablet PO 06/09/24 08:59 1 mg BID TITA Administration Sertraline HCl 50 mg 05/10/24 21:00 05/11/24 21:20 Sertraline Hcl 25 Mg Tablet PO 06/09/24 20:59 50 mg HS TITA Administration Plan Summary: The patient is a 79-year-old female with past medical history of Parkinson disease, depression and hyperlipidemia who presented to the ED on 05/09/2024 with altered mental status and was admitted for sepsis secondary to UTI as well as influenza. Admitted to the ICU for septic shock requiring pressors. #History of Parkinson's disease #History of depression with suicidal ideations At home, the patient is on carbo/levodopa, rivastigmine, pramipexole and sertraline. She reports having suicidal ideations right now. Apparently, she had attemptd suicide about two weeks ago. Will restart her home medication 05/11/2024-patient currently patient on sertraline, has a one-to-one sitter. Pending crisis eval once medically cleared. -stopped Sertraline given suicidal ideation on this admission -keep on one-to-one sitter -Crisis eval once medically clear. #GNR Urinary tract infection Rapid response was called last night as the patient'S MAP was in the 50s. She had received 3 L of fluids in the ED prior and was on maintenance. Bedside ultrasound done, plethoric IVC, not collapsible. -05/11/2024-patient off of pressors, MAP above 65. -f/u cultures 1/2 positive for gram positive rods-likely contamination; repeat blood culture -Zosyn 05/09/2024-05/12/2024 -Ceftriaxone 1 mg Qday 05/12/2024 #Influenza A On admission, the patient tested positive for influenza A. She was initially hypoxic, placed on nasal cannula 2 L but currently saturating 96% on room air. Unable to completely ascertain patient's symptoms as she only is able to answer certain questions. Chest x-ray unremarkable. Started on Tamiflu 75 mg and then 30 mg daily,05/10/2024-05/14/2024 #Leukocytosis, improving The patient presented with normal WBC but overnight, WBCs now 21.1, likely due to shock. Continue to trend WBC 15.1 (05/12/2024) #Asymptomatic bradycardia Patient noted to be intermittently bradycardic, especially when sleeping at night. Usually asymptomatic. Recommend to decrease dose of midodrine to 5 TID if persistent or symptomatic. #Transaminitis On admission, the patient had mild transaminitis, slightly more elevated today. Per chart review and on patient medications she is on a statin which could be contributing to transaminitis. -Will hold statin for now. #History of prediabetes Patient has a history of prediabetes and at home was on metformin. A1c done is 9. Blood glucose within normal limits. #Acute encephalopathy-resolved #Septic shock-resolved Dispo: pending evaluation for crisis prevention team Diet: Dysphagia 2 DVT: SC heparin Garcia: None Lines: Peripheral Code: Full - The patient's plan was discussed with attending Dr. Negrete and senior residents Dr. Staci Meza MD PGY1 Internal Medicine Attending Provider Attestation/Addendum I have discussed and was present for the essential components of the history, physical examination, diagnosis, and treatment plan with the resident. I agree with the patient's care as documented by the resident and amended herein by me. Jt Negrete DO. Patient seen and evaluated this AM. No acute events overnight, vital signs stable, patient afebrile, patient on room air, SpO2 95%, I/03 100/500. Echo demonstrating normal EF, stage II diastolic dysfunction, mild LVH. Blood cultures demonstrating GPC in aerobic bottle of 1 culture set, likely contamination however we did order repeat cultures considering the initial acuity of the patient when she initially presented to the hospital, urine culture demonstrating pansensitive Klebsiella. Will de-escalate antibiotics ceftriaxone at this time, continue Tamiflu for influenza, likely discharge in 1 to 2 days pending continued improvement. Although this document has been carefully reviewed, there may still be some phonetic and other typographical errors. These errors are purely grammatical due to imperfections in the software program and should not be construed in any way to compromise the substance of the patient's medical care during this visit.
[2024-05-13] VITALS (10 sets, daily range): BP systolic 119–131; BP diastolic 64–88; PULSE 48–90; RESP 14–22; TEMP 36.3–36.6; O2SAT 95–97; BMI 23.1; BMI 12.0
--- NOTE | 2024-05-13 03:52 | PC.NURSE ---
[facility] downtime occurred on 05/13/24 from 0200 to 0350.
[2024-05-13] MEDS: HEPARIN SOD INJ 5000 UNIT/ML VIAL SC (05:34)
[2024-05-13 05:39] LABS: Basophils % (Auto) 0 % (0-2.5); Eosinophils % (Auto) 0 % (0-10); Immature Granulocytes % (Auto) 0 % (0-0); Immature Granulocytes Auto 0.02 Thou/mm3 (0.00-0.00); Lymphocytes % (Auto) 51 % (10-50); Mean Corpuscular HGB Conc 32.4 g/dl (31.0-37.0); Mean Corpuscular Hemoglobin 28.4 pg (25.0-35.0); Mean Corpuscular Volume 88 fL (80-100); Monocytes # (Auto) 0.4 Thou/mm3 (0.0-0.8); Monocytes % (Auto) 3 % (0-12); Neutrophils # (Auto) 5.3 Thou/mm3 (1.8-7.7); Neutrophils % (Auto) 45 % (37-80); Nucleated Red Blood Cell % 0 /100 WBC (0); Platelet Count 111 Thou/mm3 (140-440); RDW Standard Deviation 50.8 fL (36.4-46.3); Red Blood Count 3.88 Miln/mm3 (4.00-5.20); White Blood Count 11.7 Thou/mm3 (3.6-11.0)
[2024-05-13 06:01] LABS: Alanine Aminotransferase 29 U/L (10-49); Albumin/Globulin Ratio 2.1 (1.2-2.2); Alkaline Phosphatase 63 U/L (46-116); Anion Gap 7 (7-16); Aspartate Amino Transferase 11 U/L (0-34); BUN/Creatinine Ratio 20 Ratio (12-20); Bilirubin,Total 0.4 mg/dL (0.3-1.2); Blood Urea Nitrogen 12 mg/dL (9-23); Calcium 7.7 mg/dL (8.3-10.6); Calcium (Corrected) 8.5 mg/dL (8.5-10.1); Carbon Dioxide 24.2 mMol/L (20.0-31.0); Chloride 107 mMol/L (98-107); Creatinine (Component) 0.6 mg/dL (0.6-1.3); Estimated Creatinine Clearance 61.1 mL/min (>60); Globulin 1.4 gm/dL (2.3-3.5); Glucose 95 mg/dL (74-106); Osmolality,Calculated 275 (275-295); Phosphorous 2.9 mg/dL (2.4-5.1); Potassium 3.7 mMol/L (3.4-5.1); Sodium 138 mMol/L (136-145); Total Protein 4.4 gm/dL (5.7-8.2); eGFR > 60 See Note
--- NOTE | 2024-05-13 08:44 | PC.SS ---
ATHLETICS TEACHER confirmed with residential team that patient has been medically cleared for crisis evaluation. ATHLETICS TEACHER notified crisis staff and bedside nurse.
[2024-05-13 09:01] LABS: Platelet Count 112 Thou/mm3 (140-440)
[2024-05-13] MEDS: POTASSIUM CHLORIDE 10% 20 MEQ/15 ML UDC PO (09:11)
[2024-05-13] MEDS: RIVASTIGMINE 4.5 MG PO ×2 (09:11→17:22)
[2024-05-13] MEDS: LACTULOSE SYRUP 20 GM/30 ML UDC PO ×3 (09:11→21:28)
[2024-05-13] MEDS: PRAMIPEXOLE 0.25 MG TABLET 1 MG PO ×2 (09:12→21:27)
[2024-05-13] MEDS: CARBIDOPA/LEVODOPA 25/100 MG TABLET 1 TAB PO (09:12)
[2024-05-13] MEDS: cefTRIAXone/D5w 1gm IV premix 1 GM/50 ML BAG IV (09:12)
--- NOTE | 2024-05-13 10:15 | PC.SS ---
ASW contacted to meet with patient for mental health evaluation as patient disclosed experiencing suicidal thoughts to bedside nurse few days ago. Patient has 1:1 sitter present. ASW along with Social Work student, Josephine Cuello met with the patient for evaluation. ASW introduced self, role and reason for contact. Patient was informed of limits of confidentiality. Patient was alert and oriented to self, place and situation. Patient was able to successfully engage in assessment and answer questions appropriately. Patient appears well kempt. Patient informs she lives at home with daughter, Cindi and granddaughter, Fanta. Patient informs she requires some assistance with ADL's. Patient reports having a walker at home to assist with ambulation. Patient is followed by Dr. Anderson for primary care. Patient also followed by Dr. Lima. 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 Patient identified her daughter Cindi as her emergency contact. Patient informs there is no diagnoses of dementia, however has been informed of the symptoms related to the diagnoses. Patient reports history of anxiety and depression symptoms. Patient informs she takes Zoloft that is prescribed by her provided Janie. Patient informs she sees Dr. Elias every three months for medication management. Patient states she has taken the medication for many years now and that her daughter administers the medication for her at home. Patient states she feels the medication has helped her feel better. Patient reports thoughts of self-harm however no plan or intent to act upon thoughts. Patient disclosed she experiences symptoms related to becoming elder, not being able to do the things she was once able to do when she was younger; for example work, dance, swim and have fun like the younger generation does. Patient states she has no history of suicide attempts or history of being on psychiatric hold. Today, the patient is denying suicidal ideation and homicidal ideation. Patient also denying visual and audio hallucinations. Patient has denied substance use. Patient reports having a good support network from her daughter Cindi and her friend Almita. Patient informs she enjoys going to the casino and gambling and playing on the slot machines. The patient is agreeable to receive a referral for mental health services and receive resources. Patient gave verbal consent to speak to her daughter, Cindi about the matter. ASW spoke with patient's daughter Cindi, who was informed of what the patient disclosed. Cindi confirmed that the Zoloft medication is administered on her behalf and the patient has no access to it. Cindi informs she or her daughter Fanta are home 03/09 and patient is never left alone as she is elder. Cindi agreed to provide the patient with support once discharged from the hospital and is aware of the disclosures the patient made. After clinical consultation with care continuing education director, Marisel Singleton LCSW, decision was agreed that the patient does not meet criteria for 5150 hold and can be cleared for discharged with resources and referral provided. ASW to fax referral to [facility] and provide patient with community resources including crisis contact, mental health resources contact, and local authorities for emergency situations. Patient to receive additional support from her daughter Cindi who is aware of referral being sent. Patient's daughter is agreeable with discharge plan and informs she is able to transport the patient home. Patient's daughter has requested a wheelchair and assigned planner internship is aware of request. Medical team and bed side nurse were updated on the discharge plan.
[2024-05-13] MEDS: OSELTAMIVIR 30 MG CAPSULE PO ×2 (10:41→21:27)
--- NOTE | 2024-05-13 13:26 | ESDS_ITS ---
<Statement entered by Radha Small MD - 05/14/24 09:31> Patient is a 79-year-old female with past medical history of Parkinson disease, depression on antidepressant, history of hypertension and hyperlipidemia was admitted for septic shock secondary due to UTI/PNA. Patient initially was admitted to ICU, for pressor support. Patient received broad-spectrum antibioti cs. Urine culture was sent. Patient condition during ICU stay improved, patient weaned off successfully from pressors, antibiotics was de-escalated, upon our evaluation patient was hemodynamically stable. Patient had an suicidal attempt 2 weeks prior to admission, during hospital stay she stated that she has passive suicidal ideation, the crisis was involved. They cleared patient to be discharged. Patient will be referred to neurology Dr. Heredia for further recommendation and care of the depression. . Family was at bedside, they were explained to seek immediate medical attention and return to the ED. Patient instructed to follow-up outpatient with PCP in 1 to 2 weeks after discharge, and follow-up with neurology in 1 week after discharge. All questions and concerns were addressed. Patient gave verbalized understanding I personally saw and examined the patient and discussed the assessment and plan with the entire medicine team, including my attending Dr. Negrete, Radha Small M.D. PGY-2 Disclaimer: Despite multiple revisions, due to the dictation software being used, the document bellow may not be free of grammatical errors including phonetic/typographic errors. However, this does not deter from our commitment to providing health care in the patient's best interest in mind. Planned Discharge Date 05/13/24 DS: Providers Provider Date of admission: 05/09/24 16:35 Primary care physician: Artur Anderson MD Admitting Provider: Hany Bergeron MD Attending Provider on Admission: Tashi Negrete DO Consults: 05/09/24 22:30 Referral Speech Therapy Stat Comment: 05/11/24 22:48 Referral Wound Care Urgent Comment: DTI right heel 05/11/24 22:50 Referral Registered Dietitian Urgent Comment: DTI right heel 05/13/24 11:10 PT [Referral Physical Therapy] Stat Comment: Physician Instructions: Attending Provider on DC: Jud Meza MD Discharging Provider: Jud Meza MD DS: Diagnosis Problem List Completed Was Problem List Reviewed/Reconciled?: Yes Hospital Course Hospital Course Hospital course: Summary: The patient is a 79-year-old female with past medical history of Parkinson disease, depression and hyperlipidemia who presented to the ED on 05/09/2024 with altered mental status and was admitted for sepsis secondary to UTI as well as influenza. Admitted to the ICU for septic shock requiring pressors and downgraded to floors on 05/11/2024 for further management of UTI and influenza A. ED course: Vitals on arrival BP 84/47, HR 120, respiratory rate 24, temp 100.1, O2 sat 98% on 4 L nasal cannula labs significant for chloride 108, GFR 58, glucose 145, lactic acid 2.1, AST 92, procalcitonin 4.20, UA showed 2+ blood, 41 urinary RBCs, 7 WBCs, 1+ bacteria. EKG showed sinus tachycardia, head CT was negative for acute bleed, chest x-ray showed mild vascular congestion. In the ED patient received 2 L NS bolus, ceftriaxone Hospital Course: Patient is a 71-year-old female with a past medical history of Parkinson's disease, depression, hyperlipidemia, and previous diabetes mellitus but A1c of 5.9 (05/10/2024). Patient was initially admitted on 05/09/2024 secondary to acute encephalopathy in the setting of sepsis secondary to influenza and urinary tract infection. Patient tested positive for UA with esterase WBCs of 7 and bacteria. Patient was influenza A positive. On admission patient was started on ceftriaxone and Tamiflu. Patient was upgraded to ICU on 05/09/2024 as patient required pressors. Patient was downgraded to floors on May 11, 2024 for further evaluation with crisis prevention team as there is concern for suicidal ideation. Blood cultures obtained on 05/09/2024 showed 1 out of 2 bottles growing gram-positive rods. This is likely a contamination given only 1 bottle was positive. Second blood culture negative after 24 hours. Urine culture positive for Klebsiella pneumoniae. Crisis prevention team cleared patient. Echo obtained on 04/30/2024 showing preserved ejection fraction of 50 to 60% with stage II diastolic dysfunction. Mildly elevated RSVP at 40 mm Hg. Mild hydronephrois noted on CT abdomen. Given suicidal ideation sertraline was stopped and switched over to a different SSRI, escitalopram at a lower dose of 5 mg daily. Patient cleared by crisis prevention. Instructions: -Please continue antibiotics for urinary tract infection until May 16 with Ciprofloxacin 250 mg twice daily -Continue Tamiflu 30 BID until May 14, 2024 -Midodrine 10 mg TID as needed if BP >110/90 -Start Please start Escitalopram 5 mg QDay and STOP Sertraline; please discuss changes with neurologist or psychiatrists. -Please continue carbidopa-levodopa 25-100 mg once per day -Please continue pramipexole 1 mg PO BID -Please continue current dose of lovastatin 40 mg once per day -Please Hold Phenazopyridine 200 mg PO TIDPC, until you follow up with your primary physician or neurologist -Please STOP Sertraline 50 mg PO once a day, until you follow with your primary care provider and please follow up with neurologist within one week, Dr. Heredia -Please Continue Carbidopa-Levodopa 1 tablet Qday and discuss possible risk of suicidal ideation risk -Please continue to Hold Metformin until you follow up with your primary care provider, A1c in patient of 5.9.%. -Please follow up with your primary care provider within one week of discharge -Please follow up with mental health provider within 2 weeks. -If your symptoms worsen,please seek immediate medical attention and return to your nearest emergency room -If you do not have a primary care provider, you may follow up at the [facility] at [address] [place] [address] [address], [place] [address], #History of Parkinson's disease #History of depression with suicidal ideations #GNR Urinary tract infection #Influenza A #Leukocytosis, improving #Asymptomatic bradycardia #Transaminitis #History of prediabetes #Acute encephalopathy-resolved #Septic shock, secondary to UTI-resolved - The patient's plan was discussed with attending Dr. Negrete and senior residents Dr. Staci Meza MD PGY1 Internal Medicine Time Spent with Patient Time attestation: Total time spent providing and/or coordinating discharge services: at least 30 minutes of care and coordianton. Exam Vital Signs Temp Pulse Resp BP Pulse Ox O2 Del Method O2 Flow Rate 97.9 F 58 L 21 H 126/80 97 Room Air 4 05/13/24 11:57 05/13/24 11:57 05/13/24 11:57 05/13/24 11:57 05/13/24 11:57 05/13/24 11:57 05/09/24 13:00 Narrative Exam General Appearance: Alert & Oriented X3, thin female who is lying in bed in no acute distress HEENT: Skull symmetrical and atraumatic. Conjunctivae pin and moist. Pupils equal, round, reactive to light and accommodation (PERRL). External ear without lesion or discharge. Straight, nares patient, mucosa pink, no discharge. No thyroid nodule appreciated. No cervical lymphadenopathy. Cardio: Normal Rate and Rhythm with S1 and S2 heart sounds. No murmurs or extra heart sounds auscultated. No bruits on carotid auscultation. No peripheral edema or cyanosis. Lungs: Symmetric with good expansion. Chest and back non-tender. Breath sounds vesicular without crackles, wheezing or rhonchi Abdomen: Non-tender, Non-distended, Normal Reactive Bowel Sounds Neuro: Alert, cooperative, oriented to person, place, and time. Speech clear. CN grossly intact. Upper motor strength 5/5 and Lower motor strength 4/5. Sensation intact. Discharge Plan Plan Patient Disposition: Home w/HOME HEALTH Patient condition on transfer: Stable Care Plan Goals: Instructions: -Please continue antibiotics for urinary tract infection until May 16 with Ciprofloxacin 250 mg twice daily -Midodrine 10 mg TID as needed if Blood Pressure <100/90 -Please Hold Phenazopyridine 200 mg PO TIDPC, until you follow up with your primary physician or neurologist -Please STOP Sertraline 50 mg PO once a day, until you follow with your primary care provider and please follow up with neurologist within one week, Dr. Heredia -Please continue all other home medicaiton -Please follow up with your primary care provider within one week of discharge -Please follow up with mental health provider within 2 weeks. -If your symptoms worsen,please seek immediate medical attention and return to your nearest emergency room -If you do not have a primary care provider, you may follow up at the [facility] at [address], [place] [address], -Safe to discharge to [facility] Prescriptions/Referrals Prescriptions/Med Rec: New midodrine 10 mg tablet 10 mg PO TID PRN (Reason: blood pressure) 7 Days Qty: 21 0RF Rx Instructions: do not give last dose of day after 6PM or within 4 hrs of bedtime Please hold if BP >120/110 ciprofloxacin HCl 250 mg tablet 250 mg PO BID 3 Days Qty: 6 0RF Continued metformin [Glucophage] 500 MG tablet 500 mg PO BIDAC Qty: 0 rivastigmine tartrate 4.5 mg capsule 4.5 mg PO QDAY carbidopa-levodopa 25-100 mg tablet 1 tab PO QDAY Patient Comments: TAKE 1 TABLET BY MOUTH DAILY lovastatin 40 mg tablet 40 mg PO BID Patient Comments: TAKE 1 TABLET BY MOUTH EVERY DAY pramipexole 1 mg tablet 1 mg PO BID Patient Comments: TAKE 1 TABLET BY MOUTH TWICE DAILY Held Phenazopyridine * (PYRIDIUM *) 200 MG tablet 200 mg PO TIDPC Qty: 10 0RF Hold Instructions: Continue to hold until you follow up with your primary care provider or neurologist sertraline 50 mg tablet 50 mg PO Q24H Hold Instructions: Please hold until you follow up with your primary care provider Discontinued lovastatin 20 MG tablet 20 mg PO HS Qty: 0 Referrals: Artur Anderson MD [Primary Care Provider] - Patient/Caregiver Discharge Instructions Education Materials: Anatomy of the Female Urinary Tract Print Language: Sami Stand Alone Forms: Debbie Award Info., Patient Portal Info Letter Discharge Order Discharge Orders: Discharge (Routine); Ordered 05/14/24 Ordered By: Kelli Blood Quality Discharge Quality Measures VTE prophylaxis Attestestation Attestation I have discussed and was present for the essential components of the discharge history, physical examination, diagnosis, and discharge treatment plan with the resident. I agree with the patient's discharge care as documented by the resident and amended herein by me. Jt Negrete DO. Patient not discharged today as expected, likely tomorrow Although this document has been carefully reviewed, there may still be some phonetic and other typographical errors. These errors are purely grammatical due to imperfections in the software program and should not be construed in any way to compromise the substance of the patient's medical care during this visit.
--- NOTE | 2024-05-13 14:36 | PC.SS ---
Patient needs a manual wheelchair for home The patient and her family are requesting a wheel chair. Patients diagnosis creates mobility limitations that significantly impairs ability to participate in the patient?s activities of daily living either in their entirety or in a reasonable timeframe in the home and the patient?s mobility limitations cannot be sufficiently resolved with an appropriately fitted cane or walker. Also, the use of a manual wheelchair will sufficiently improve patients ability to participate in the activities of daily living in the home and the patient is willing to use the wheelchair that is provided in the home. The patient has some one in the home that is available, willing and able to provide assistance with the wheelchair.
--- NOTE | 2024-05-13 15:23 | PC.SS ---
BAD CLOTH CHECKER informed by physical therapist recommendation for short term SNF placement. BAD CLOTH CHECKER met with patient to discuss PT recommendation. Patient agreeable to transition to SNF. BAD CLOTH CHECKER contacted patient's daughter, Cindi; who is agreeable to discharge plan. Preferred facility is [facility]. Authorization will need to be obtained for placement.
[2024-05-13] MEDS: MIDODRINE 5 MG TABLET 10 MG PO (21:27)
[2024-05-14] VITALS (9 sets, daily range): BP systolic 121–140; BP diastolic 71–84; PULSE 53–88; RESP 16–23; TEMP 36.2–36.6; O2SAT 95–97; BMI 23.3
[2024-05-14 05:25] LABS: Basophils % (Auto) 0 % (0-2.5); Eosinophils # (Auto) 0.1 Thou/mm3 (0.0-0.5); Eosinophils % (Auto) 1 % (0-10); Hematocrit 37.9 % (36.0-46.0); Hemoglobin 12.5 g/dL (12.0-16.0); Immature Granulocytes % (Auto) 0 % (0-0); Immature Granulocytes Auto 0.04 Thou/mm3 (0.00-0.00); Lymphocytes # (Auto) 6.7 Thou/mm3 (1.0-4.8); Lymphocytes % (Auto) 62 % (10-50); Mean Corpuscular Hemoglobin 28.7 pg (25.0-35.0); Mean Corpuscular Volume 87 fL (80-100); Monocytes # (Auto) 0.3 Thou/mm3 (0.0-0.8); Monocytes % (Auto) 3 % (0-12); Neutrophils # (Auto) 3.7 Thou/mm3 (1.8-7.7); Neutrophils % (Auto) 34 % (37-80); Nucleated Red Blood Cell % 0 /100 WBC (0); Platelet Count 122 Thou/mm3 (140-440); RDW Standard Deviation 49.1 fL (36.4-46.3); Red Blood Count 4.36 Miln/mm3 (4.00-5.20); White Blood Count 10.9 Thou/mm3 (3.6-11.0)
[2024-05-14 05:54] LABS: Alanine Aminotransferase 33 U/L (10-49); Albumin, Serum 3.1 gm/dL (3.4-4.8); Albumin/Globulin Ratio 1.9 (1.2-2.2); Alkaline Phosphatase 70 U/L (46-116); Anion Gap 7 (7-16); Aspartate Amino Transferase 16 U/L (0-34); BUN/Creatinine Ratio 15 Ratio (12-20); Bilirubin,Total 0.5 mg/dL (0.3-1.2); Blood Urea Nitrogen 9 mg/dL (9-23); Calcium 8.1 mg/dL (8.3-10.6); Calcium (Corrected) 8.8 mg/dL (8.5-10.1); Carbon Dioxide 26.1 mMol/L (20.0-31.0); Chloride 104 mMol/L (98-107); Creatinine (Component) 0.6 mg/dL (0.6-1.3); Estimated Creatinine Clearance 61.1 mL/min (>60); Globulin 1.6 gm/dL (2.3-3.5); Glucose 97 mg/dL (74-106); Magnesium 1.9 mg/dL (1.6-2.6); Osmolality,Calculated 272 (275-295); Potassium 3.9 mMol/L (3.4-5.1); Sodium 137 mMol/L (136-145); Total Protein 4.7 gm/dL (5.7-8.2); eGFR > 60 See Note
[2024-05-14] MEDS: RIVASTIGMINE 4.5 MG PO ×2 (08:20→17:12)
[2024-05-14] MEDS: PRAMIPEXOLE 0.25 MG TABLET 1 MG PO ×2 (08:21→21:36)
[2024-05-14] MEDS: cefTRIAXone/D5w 1gm IV premix 1 GM/50 ML BAG IV (08:21)
[2024-05-14] MEDS: CARBIDOPA/LEVODOPA 25/100 MG TABLET 1 TAB PO (08:21)
[2024-05-14] MEDS: OSELTAMIVIR 30 MG CAPSULE PO (08:21)
--- NOTE | 2024-05-14 10:26 | PC.SS ---
SNF referral submitted on [facility]. Awaiting responses.
--- NOTE | 2024-05-14 10:30 | PC.SS ---
PASSR submitted. Patient meets Level II criteria. PASSR follow up pending.
--- NOTE | 2024-05-14 12:24 | PC.SS ---
PIPE BENDING MACHINE OPERATOR contacted [facility] staff to initiate authorization for SNF placement on behalf of the patient. No response. PIPE BENDING MACHINE OPERATOR left voicemail message.
--- NOTE | 2024-05-14 13:38 | ESDS_ITS ---
<Statement entered by Radha Small MD - 05/14/24 15:07> Patient is a 79-year-old female with past medical history of Parkinson disease, depression on antidepressant, history of hypertension and hyperlipidemia was admitted for septic shock secondary due to UTI/PNA. Patient initially was admitted to ICU, for pressor support. Patient received broad-spectrum antibioti cs. Urine culture was sent. Patient condition during ICU stay improved, patient weaned off successfully from pressors, antibiotics was de-escalated, upon our evaluation patient was hemodynamically stable. Patient had an suicidal attempt 2 weeks prior to admission, during hospital stay she stated that she has passive suicidal ideation, the crisis was involved. They cleared patient to be discharged. Patient will be referred to neurology Dr. Heredia for further recommendation and care of the depression. . Family was at bedside, they were explained to seek immediate medical attention and return to the ED. Patient instructed to follow-up outpatient with PCP in 1 to 2 weeks after discharge, and follow-up with neurology in 1 week after discharge. All questions and concerns were addressed. Patient gave verbalized understanding I personally saw and examined the patient and discussed the assessment and plan with the entire medicine team, including my attending Dr. Negrete, Radha Small M.D. PGY-2 Disclaimer: Despite multiple revisions, due to the dictation software being used, the document bellow may not be free of grammatical errors including phonetic/typographic errors. However, this does not deter from our commitment to providing health care in the patient's best interest in mind. Planned Discharge Date 05/14/24 DS: Providers Provider Date of admission: 05/09/24 16:35 Primary care physician: Artur Anderson MD Admitting Provider: Hany Bergeron MD Attending Provider on Admission: Tashi Negrete DO Consults: 05/09/24 22:30 Referral Speech Therapy Stat Comment: 05/11/24 22:48 Referral Wound Care Urgent Comment: DTI right heel 05/11/24 22:50 Referral Registered Dietitian Urgent Comment: DTI right heel 05/13/24 11:10 PT [Referral Physical Therapy] Stat Comment: Physician Instructions: Attending Provider on DC: Jud Meza MD Discharging Provider: Jud Meza MD DS: Diagnosis Problem List Completed Was Problem List Reviewed/Reconciled?: Yes Hospital Course Hospital Course Hospital course: Summary: The patient is a 79-year-old female with past medical history of Parkinson disease, depression and hyperlipidemia who presented to the ED on 05/09/2024 with altered mental status and was admitted for sepsis secondary to UTI as well as influenza. Admitted to the ICU for septic shock requiring pressors and downgraded to floors on 05/11/2024 for further management of UTI and influenza A. ED course: Vitals on arrival BP 84/47, HR 120, respiratory rate 24, temp 100.1, O2 sat 98% on 4 L nasal cannula labs significant for chloride 108, GFR 58, glucose 145, lactic acid 2.1, AST 92, procalcitonin 4.20, UA showed 2+ blood, 41 urinary RBCs, 7 WBCs, 1+ bacteria. EKG showed sinus tachycardia, head CT was negative for acute bleed, chest x-ray showed mild vascular congestion. In the ED patient received 2 L NS bolus, ceftriaxone Hospital Course: Patient is a 71-year-old female with a past medical history of Parkinson's disease, depression, hyperlipidemia, and previous diabetes mellitus but A1c of 5.9 (05/10/2024). Patient was initially admitted on 05/09/2024 secondary to acute encephalopathy in the setting of sepsis secondary to influenza and urinary tract infection. Patient tested positive for UA with esterase WBCs of 7 and bacteria. Patient was influenza A positive. On admission patient was started on ceftriaxone and Tamiflu. Patient was upgraded to ICU on 05/09/2024 as patient required pressors. Patient was downgraded to floors on May 11, 2024 for further evaluation with crisis prevention team as there is concern for suicidal ideation. Blood cultures obtained on 05/09/2024 showed 1 out of 2 bottles growing gram-positive rods. This is likely a contamination given only 1 bottle was positive. Second blood culture negative after 24 hours. Urine culture positive for Klebsiella pneumoniae. Crisis prevention team cleared patient. Echo obtained on 04/30/2024 showing preserved ejection fraction of 50 to 60% with stage II diastolic dysfunction. Mildly elevated RSVP at 40 mm Hg. Mild hydronephrois noted on CT abdomen. Given suicidal ideation sertraline was stopped and switched over to a different SSRI, escitalopram at a lower dose of 5 mg daily. Patient cleared by crisis prevention. Patient failed discharge on May 13, 2024 as SNF placement was decided by family versus home. Patient discharged to SNF on May 14, 2024. Instructions: Instructions: -Please continue antibiotics for urinary tract infection until May 16 with Ciprofloxacin 250 mg twice daily -Midodrine 10 mg TID as needed if Blood Pressure <100/90 -Please Hold Phenazopyridine 200 mg PO TIDPC, until you follow up with your primary physician or neurologist -Please STOP Sertraline 50 mg PO once a day, until you follow with your primary care provider and please follow up with neurologist within one week, Dr. Heredia -Please continue all other home medicaiton -Please follow up with your primary care provider within one week of discharge -Please follow up with mental health provider within 2 weeks. -If your symptoms worsen,please seek immediate medical attention and return to your nearest emergency room -If you do not have a primary care provider, you may follow up at the [facility] at [address] [place] [address] [address], [place] [address], -Safe to discharge to [facility] #History of Parkinson's disease #History of depression with suicidal ideations #GNR Urinary tract infection #Influenza A #Leukocytosis, resolved #Asymptomatic bradycardia #Transaminitis #History of prediabetes #Acute encephalopathy-resolved #Septic shock, secondary to UTI-resolved - The patient's plan was discussed with attending Dr. Negrete and senior residents Dr. Staci Meza MD PGY1 Internal Medicine Time Spent with Patient Time attestation: Total time spent providing and/or coordinating discharge services: at least 30 minutes of care and coordination Home Health Home Health Referral Orders: 05/13/24 14:50 Home Health Referral Routine Reason For Exam: debility Home-Bound The patient must either because of illness or injury, need the aid of supportive devices such as crutches, canes, wheelchairs, and walkers; the use of special transportation; or the assistance of another person in order to leave their place of residence; OR have a condition such that leaving his or her home is medically contraindicated. In addition, the patient also meets the following criteria: patient is normally unable to leave the home and leaving home requires considerable taxing effort. Addendum to Home Health Certification Practitioner's Certification: I certify that the patient has been under my care in the hospital and the care of attending physician (see below). We had a odlo-ji-uydc encounter on (see date below). My clinical findings indicate that the patient is home bound per the above criteria and the Home Health Services noted in these orders are medically necessary. The primary reason for the [id number]-hu-[id number] encounter is related to the fact that the patient requires home health services. Date Certifying Upwz-py-Xbnn Physician Encounter: 05/09/24 Physician's Name who will Assume Oversight for HH Services: Artur Anderson Physician's Phone No.who will Assume Oversight for Service: GAS PLUMBING INSPECTOR - Community Resources: No PT to Evaluate: Yes PT to evaluate and provide a treatmnet plan to increase patient's mobility and strength. Wound Care: No IV Therapy: No RN Safety Evaluation: Yes RN to evaluate and create a plan of care that will produce positive outcomes. Palliative Treatment: No Palliative treatment and evaluate the need for hospice. Home Health Aide - Personal Care: No Home Health Aide to assist with any ADL's. Exam Vital Signs Temp Pulse Resp BP Pulse Ox O2 Del Method O2 Flow Rate 97.3 F 79 20 135/84 H 95 Room Air 4 05/14/24 08:00 05/14/24 08:00 05/14/24 08:00 05/14/24 08:00 05/14/24 08:00 05/14/24 08:00 05/09/24 13:00 Narrative Exam General Appearance: Alert & Oriented X3, thin female who is lying in bed in no acute distressed. HEENT: Skull symmetrical and atraumatic. Conjunctivae pin and moist. Pupils equal, round, reactive to light and accommodation (PERRL). External ear without lesion or discharge. Straight, nares patient, mucosa pink, no discharge. No thyroid nodule appreciated. No cervical lymphadenopathy. Cardio: Normal Rate and Rhythm with S1 and S2 heart sounds. No murmurs or extra heart sounds auscultated. No bruits on carotid auscultation. No peripheral edema or cyanosis. Lungs: Symmetric with good expansion. Chest and back non-tender. Breath sounds vesicular without crackles, wheezing or rhonchi Abdomen: Non-tender, Non-distended, Normal Reactive Bowel Sounds Neuro: Alert, cooperative, oriented to person, place, and time. Speech clear. CN grossly intact. Upper motor strength 5/5 and Lower motor strength 4/5. Sensation intact. Discharge Plan Plan Patient Disposition: Home w/HOME HEALTH Patient condition on transfer: Stable Care Plan Goals: Instructions: -Please continue antibiotics for urinary tract infection until May 16 with Ciprofloxacin 250 mg twice daily -Midodrine 10 mg TID as needed if Blood Pressure <100/90 -Please Hold Phenazopyridine 200 mg PO TIDPC, until you follow up with your primary physician or neurologist -Please STOP Sertraline 50 mg PO once a day, until you follow with your primary care provider and please follow up with neurologist within one week, Dr. Heredia -Please continue all other home medicaiton -Please follow up with your primary care provider within one week of discharge -Please follow up with mental health provider within 2 weeks. -If your symptoms worsen,please seek immediate medical attention and return to your nearest emergency room -If you do not have a primary care provider, you may follow up at the [facility] at [address] [place] [address] [address], [place] [address], -Safe to discharge to [facility] Prescriptions/Referrals Prescriptions/Med Rec: New midodrine 10 mg tablet 10 mg PO TID PRN (Reason: blood pressure) 7 Days Qty: 21 0RF Rx Instructions: do not give last dose of day after 6PM or within 4 hrs of bedtime Please hold if BP >120/110 ciprofloxacin HCl 250 mg tablet 250 mg PO BID 3 Days Qty: 6 0RF Continued metformin [Glucophage] 500 MG tablet 500 mg PO BIDAC Qty: 0 rivastigmine tartrate 4.5 mg capsule 4.5 mg PO QDAY carbidopa-levodopa 25-100 mg tablet 1 tab PO QDAY Patient Comments: TAKE 1 TABLET BY MOUTH DAILY lovastatin 40 mg tablet 40 mg PO BID Patient Comments: TAKE 1 TABLET BY MOUTH EVERY DAY pramipexole 1 mg tablet 1 mg PO BID Patient Comments: TAKE 1 TABLET BY MOUTH TWICE DAILY Held Phenazopyridine * (PYRIDIUM *) 200 MG tablet 200 mg PO TIDPC Qty: 10 0RF Hold Instructions: Continue to hold until you follow up with your primary care provider or neurologist sertraline 50 mg tablet 50 mg PO Q24H Hold Instructions: Please hold until you follow up with your primary care provider Discontinued lovastatin 20 MG tablet 20 mg PO HS Qty: 0 Referrals: Artur Anderson MD [Primary Care Provider] - Patient/Caregiver Discharge Instructions Education Materials: Anatomy of the Female Urinary Tract Print Language: Ugandan Stand Alone Forms: Debbie Award Info., Patient Portal Info Letter Discharge Order Discharge Orders: Discharge (Routine); Ordered 05/14/24 Ordered By: Kelli Blood Quality Discharge Quality Measures VTE prophylaxis Attestestation MD Attestation Patient did not discharge today as anticipated, patient's family is requesting SNF at this time instead of home. Social work notified, will look for suitable facilities.
--- NOTE | 2024-05-14 14:24 | PC.SS ---
SEAT COVER MAKER received phone call from patient's daughter informing SEAT COVER MAKER that preferred SNF is [facility]. SEAT COVER MAKER informed daughter that confirmation of bed availability will be conducted with [facility]. In addition SEAT COVER MAKER will contact [facility] to present change in preferred SNF. SEAT COVER MAKER stated to patient's daughter that pivot from [facility] to [facility] dependent on SNF accepting patient for placement and insurance granting authorization. Patient's daughter acknowledged process.
--- NOTE | 2024-05-14 14:30 | PC.SS ---
CONTROLLER MECHANIC contacted [facility] staff, Lee Ann; who confirmed that facility will accept the patient for placement. CONTROLLER MECHANIC left voicemail for [employer] staff relaying patient's family preference to have the patient transition to [facility].
--- NOTE | 2024-05-14 14:40 | PC.SS ---
FUR OPERATOR received phone call from [facility] staff confirming that authorization will be granted to [facility] for placement. FUR OPERATOR provided update to the patient's daughter, Cindi.
--- NOTE | 2024-05-14 14:45 | PC.SS ---
TERRITORY OUTSIDE SALES MANAGER contacted [facility] admission staff, Alexandrea; provided update that patient's family has chosen other SNF for placement. [facility] staff acknowledged change in discharge plan.
[2024-05-14 16:45] LABS: Path Review Blood Smear Sent to Pathologist
[2024-05-15] VITALS (7 sets, daily range): BP systolic 112–139; BP diastolic 70–90; PULSE 63–78; RESP 19–22; TEMP 36.1–36.6; O2SAT 95–97; BMI 22.9; BMI 12.0
[2024-05-15] MEDS: RIVASTIGMINE 4.5 MG PO (08:45)
[2024-05-15] MEDS: CARBIDOPA/LEVODOPA 25/100 MG TABLET 1 TAB PO (08:46)
[2024-05-15] MEDS: cefTRIAXone/D5w 1gm IV premix 1 GM/50 ML BAG IV (08:46)
[2024-05-15] MEDS: PRAMIPEXOLE 0.25 MG TABLET 1 MG PO (08:49)
--- NOTE | 2024-05-15 10:40 | CHAP ---
Patient was visited by he Spiritual Care Volunteer who prayed for them. (Volunteer was in the hospital from 09:15-10:40).
--- NOTE | 2024-05-15 11:00 | PC.SS ---
NET FISHER attempted phone contact with [facility] staff to initiate case closure. No response message requesting return call left. Pending response.
--- NOTE | 2024-05-15 12:11 | PC.SS ---
FILER HELPER attempted phone contact with [facility] staff to initiate case closure. No response message requesting return call left. Pending response.
--- NOTE | 2024-05-15 13:02 | PC.SS ---
ENTREPRENEUR attempted phone contact with [facility] staff to initiate case closure. No response message requesting return call left. Pending response.
--- NOTE | 2024-05-15 13:59 | ESPR_ITS ---
Documentation for date of: 05/15/24 Subjective Subjective Interval history: No overnight events reported per patient. Patient failed discharge 2 days ago secondary to SNF placement. Patient completed course of Tamiflu secondary to pneumonia and influenza. Patient denied shortness of breath, denied chills or fevers overnight, and denied headaches. Patient will be discharged today, May 15, 2024, to SNF ([facility]). Exam Vital Signs Temp Pulse Resp BP Pulse Ox O2 Del Method O2 Flow Rate 97.2 F 75 19 112/73 95 Room Air 4 05/15/24 12:00 05/15/24 12:00 05/15/24 12:05/15/24 12:00 05/15/24 12:05/15/24 12:05/15/24 04:00 Narrative Exam General Appearance: Alert & Oriented X3, thin female who is lying in bed in no acute distress HEENT: Skull symmetrical and atraumatic. Conjunctivae pin and moist. Pupils equal, round, reactive to light and accommodation (PERRL). External ear without lesion or discharge. Straight, nares patient, mucosa pink, no discharge. No thyroid nodule appreciated. No cervical lymphadenopathy. Cardio: Normal Rate and Rhythm with S1 and S2 heart sounds. No murmurs or extra heart sounds auscultated. No bruits on carotid auscultation. No peripheral edema or cyanosis. Lungs: Symmetric with good expansion. Chest and back non-tender. Breath sounds vesicular without crackles, wheezing or rhonchi Abdomen: Non-tender, Non-distended, Normal Reactive Bowel Sounds Neuro: Alert, cooperative, oriented to person, place, and time. Speech clear. CN grossly intact. Upper motor strength 5/5 and Lower motor strength 5/5. Sensation intact. Objective Labs 05/14/24 04:35 05/14/24 04:35 Labs: Laboratory Results - last 24 hr 05/14/24 04:35 Smear Path Review Sent to Pathologist Quality Measures Quality Measures VTE prophylaxis Advance care planning discussed with:: patient Assessment & Plan Assessment Current Active Medications: Generic Name Dose Route Start Last Admin Trade Name Freq PRN Reason Stop Dose Admin Acetaminophen 650 mg 05/09/24 16:33 Acetaminophen 325 Mg Tablet PO 06/08/24 16:32 Q6H PRN Fever >101.5 Acetaminophen 650 mg 05/09/24 16:33 Acetaminophen 325 Mg Tablet PO 06/08/24 16:32 Q6H PRN PAIN SCALE 1-3 (mild Acetaminophen 650 mg 05/11/24 09:26 Acetaminophen Supp 650 Mg Supp LA 06/08/24 22:40 Q6HR PRN PAIN 1-3 OR FEVER > 101 Carbidopa/Levodopa 1 tab 05/10/24 09:00 05/15/24 08:46 Carbidopa/Levodopa 25/100 Mg Tablet PO 06/09/24 08:59 1 tab QDAY TITA Administration Rivastigmine 4.5 Mg 0 ea 05/10/24 12:00 05/15/24 08:45 Capsule PO 06/09/24 11:59 1 capsule BIDWM TITA Administration Dextrose 25 ml 05/09/24 16:55 Dextrose 50%-Water Inj 50 Ml Syringe IV 06/08/24 16:54 Q15MIN PRN BG 50-70 responsive npo pt Dextrose 50 ml 05/09/24 16:55 Dextrose 50%-Water Inj 50 Ml Syringe IV 06/08/24 16:54 Q15MIN PRN BG <50 OR BG <70 & pt unresponsive Glucagon 1 mg 05/09/24 16:55 Glucagon Inj 1 Mg Vial IM Q15MIN PRN BG <70, and no IV access Heparin Sodium (Porcine) 5,000 unit 05/09/24 22:00 05/13/24 05:34 Heparin Sod Inj 5000 Unit/Ml Vial SC 05/23/24 21:59 5,000 unit Q8HR TITA Administration Ceftriaxone Sodium/Dextrose 1 gm in 50 mls @ 100 mls/hr 05/12/24 08:00 05/15/24 08:46 Rocephin/D5w 1gm Iv Premix IV 05/19/24 07:59 100 mls/hr QDAY TITA Administration Lactulose 20 gm 05/13/24 20:02 05/15/24 05:11 Lactulose Syrup 20 Gm/30 Ml Udc PO 06/12/24 07:59 Not Given TID [facility] Protocol Midodrine 10 mg 05/12/24 05:27 05/15/24 05:21 Midodrine 5 Mg Tablet PO 06/09/24 21:59 Not Given TID TITA Ondansetron HCl 4 mg 05/09/24 16:33 05/11/24 13:23 Ondansetron Inj 2 Mg/Ml Inj 2 Ml IV 06/08/24 16:32 4 mg Q6H PRN Administration NAUSEA OR VOMITING Protocol Pramipexole Dihydrochloride 1 mg 05/10/24 09:00 05/15/24 08:49 Pramipexole 0.25 Mg Tablet PO 06/09/24 08:59 1 mg BID TITA Administration Plan Summary: The patient is a 79-year-old female with past medical history of Parkinson disease, depression and hyperlipidemia who presented to the ED on 05/09/2024 with altered mental status and was admitted for sepsis secondary to UTI as well as influenza. Admitted to the ICU for septic shock requiring pressors. #History of Parkinson's disease #History of depression with suicidal ideations, improved At home, the patient is on carbo/levodopa, rivastigmine, pramipexole and sertraline. She reports having suicidal ideations right now. Apparently, she had attemptd suicide about two weeks ago. Plan: 05/11/2024-patient currently patient on sertraline, has a one-to-one sitter. Pending crisis eval once medically cleared. -stopped Sertraline given suicidal ideation on this admission -Crisis eval once medically clear-->cleared-->[facility] #GNR Urinary tract infection Rapid response was called last night as the patient'S MAP was in the 50s. She had received 3 L of fluids in the ED prior and was on maintenance. Bedside ultrasound done, plethoric IVC, not collapsible. -05/11/2024-patient off of pressors, MAP above 65. -f/u cultures 1/2 positive for gram positive rods-likely contamination; repeat blood culture -Zosyn 05/09/2024-05/12/2024 -Ceftriaxone 1 mg Qday 05/12/2024 -outpatinet ciprofloxacin until May 16, 2024 #Asymptomatic bradycardia, improved Patient noted to be intermittently bradycardic, especially when sleeping at night. Usually asymptomatic. Recommend to decrease dose of midodrine to 5 TID if persistent or symptomatic. #History of prediabetes Patient has a history of prediabetes and at home was on metformin. A1c done is 9. Blood glucose within normal limits. #Influenza A, resolved #Transaminitis, resolved. #Leukocytosis, resolved #Acute encephalopathy-resolved #Septic shock-resolved Dispo: SNF-->[facility] Diet: Dysphagia 2 DVT: SC heparin Garcia: None Lines: Peripheral Code: Full - The patient's plan was discussed with attending Dr. Caden Meza MD PGY1 Internal Medicine Attending Provider Attestation/Addendum I have discussed and was present for the essential components of the history, physical examination, diagnosis, and treatment plan with the resident. I agree with the patient's care as documented by the resident and amended herein by me. Jt Negrete DO. Pending placement Although this document has been carefully reviewed, there may still be some phonetic and other typographical errors. These errors are purely grammatical due to imperfections in the software program and should not be construed in any way to compromise the substance of the patient's medical care during this visit.
[2024-05-15] MEDS: MIDODRINE 5 MG TABLET 10 MG PO (14:17)
[2024-05-15] MEDS: LACTULOSE SYRUP 20 GM/30 ML UDC PO (14:17)
--- NOTE | 2024-05-15 14:36 | PC.SS ---
HAZARDOUS SUBSTANCES ENGINEER completed phone contact with [facility] staffDonavan. [facility] to be closed. Awaiting online closure.
--- NOTE | 2024-05-15 14:36 | PC.SS ---
BUSINESS AND MARKETING TEACHER notified patient, bedside nurse and SNF that patient will be discharged today. Patient to be transitioned to [facility]. Transport time pending.
--- NOTE | 2024-05-15 14:49 | PC.SS ---
Ambulance transport has been scheduled for 05:00 pm today. MEDICAL LAB SPECIALIST updated bedside nurse, patient, SNF and patient's daughter.
--- NOTE | 2024-05-15 16:40 | PC.SS ---
Ambulance transport has been pushed back to 06:00 pm. GRAIN ELEVATOR MAN notified patient, patient's daughter, bedside nurse and SNF.
--- NOTE | 2024-05-17 07:44 | PC.CC ---
pt is discharged to [facility], HH referral is canceled.
== END 2024-05-15 18:25 | disposition skilled nursing facility (03) | DRG 871 ==
LOC: SERX 16:13 → SERHOLD 16:37 → S2NX 20:11 → S2SX 05-10 08:21 → S2NX 05-11 06:05
PROVIDERS: Student in an Organized Health Care Education/Training Program; Admitting Provider Internal Medicine; Emergency Provider Emergency Medicine; PCP Internal Medicine; Visit Provider Student in an Organized Health Care Education/Training Program
DX: A41.89 Other specified sepsis (principal); G93.41 Metabolic encephalopathy; R65.21 Severe sepsis with septic shock; N10 Acute pyelonephritis; R45.851 Suicidal ideations; E11.9 Type 2 diabetes mellitus without complications; I10 Essential (primary) hypertension; J10.81 Influenza due to other identified influenza virus with encephalopathy; E78.5 Hyperlipidemia, unspecified; G20.A1 Parkinson's disease without dyskinesia, without mention of fluctuations; F32.A Depression, unspecified; R09.02 Hypoxemia; R74.01 Elevation of levels of liver transaminase levels; Z79.899 Other long term (current) drug therapy
CPT/HCPCS: 36415; 70450; 71045; 74176; 80053; 81001; 83036; 83605; 83690; 83735; 83880; 84100; 84145; 84443; 84484; 85025; 85049; 85610; 85730; 87040; 87076; 87077; 87081; 87086; 87186; 87400; 87811; 92526; 92610; 93005; 93306; 96127; 96361; 96365; 96375; 97162; 99291; J0696; J1643; J2405; J2470; J2543; J3490; J7030; A9270

== ENCOUNTER 2024-06-09 02:32 | Emergency (ER) | payer OTHER, SELFPAY ==
[2024-06-09 02:37] VITALS: BP 119/71; PULSE 76; RESP 15; TEMP 36.7; O2SAT 99
[2024-06-09 02:55] VITALS: PULSE 76; RESP 20; O2SAT 98
--- NOTE | 2024-06-09 03:11 | EDNOTE_ITS ---
ED Fall Injury RME/HPI General Chief Complaint: Fall Stated Complaint: AMS Time Seen by Provider: 06/09/24 03:35 Arrival date/time: 06/09/24 02:32 RME / HPI RME / HPI Narrative: Dr. Sequeira's Main ED Evaluation: 79yo female with a history of Parkinson's disease BIBA from home presents to the ED for a chief complaint of a fall. 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 She denies any loss of consciousness. Patient denies any neck pain, chest pain, shortness of breath, abdominal pain, extremity pain, dizziness, weakness, lightheadedness or any other associated symptoms. Related Data Home Medications ?Medication ?Instructions ?Recorded ?Confirmed metformin 500 mg tablet 500 mg PO BIDAC #0 tabs 02/1205/10/24 (Glucophage) carbidopa 25 mg-levodopa 100 mg 1 tab PO QDAY 05/10/24 05/10/24 tablet lovastatin 40 mg tablet 40 mg PO BID 05/10/24 pramipexole 1 mg tablet 1 mg PO BID 05/10/24 5 rivastigmine tartrate 4.5 mg 4.5 mg PO QDAY 05/10/24 0 05/10/24 capsule sertraline 50 mg tablet 50 mg PO Q24H 05/10/2405/10 Held on 05/13/24. Instructions: Please hold until you follow up with your primary care provider Previous Rx's ?Medication ?Instructions ?Recorded Phenazopyridine * (PYRIDIUM *) 200 mg PO TIDPC #10 tab s 03/01/16 Held on 05/13/24. Instructions: Continue to hold until you follow up with your primary care provider or neurologist Allergies Allergy/AdvReac Type Severity Reaction Status Date / Time codeine Allergy Mild SHAKEY Verified 03/23/16 12:11 Review of Systems Review of Systems Systems Reviewed: All systems reviewed, normal except as documented Past Medical History Past Medical History NEUROLOGIC: Positive Neurological Disorders and Parkinson's Disease CARDIAC: Negative Congestive Heart Failure RESPIRATORY: Negative Chronic Obstructive Pulmonary Disease (COPD) GENITOURINARY: Negative Renal Disease ENDOCRINE: Negative Diabetes Mellitus Type 1 or Diabetes Mellitus Type 2 Social History SMOKING STATUS: Never smoker SUBSTANCE USE: does not use ED Exam Narrative Physical exam: General: Non-toxic, well appearing, in no acute distress, and appears stated age and well developed and well nourished. Vital signs: Normal. Head: Normocephalic. 2 cm v-shaped laceration to the left lateral eyebrow and left cheek with ecchymosis over the eye. No step-off. Eyes: Aproptotic, extraocular movements intact. Nose: Nares without evidence of rhinorrhea. Neck: Supple without menigismus without lympadenopathy. Nontender. Heart: Regular rate and rhythm without murmur, gallops, or rubs. Lungs: Clear to auscultation without wheezing, rales, or rhonchi. Abdomen: Soft, non distended. No tenderness. Normal bowel sounds. Negative Hernandez sign and no McBurney?s point tenderness. No guarding, rebound, or rovsing. Back: No costovertebral angle tenderness. Neurological: Alert and oriented to person, place, time. Gait normal. Extremities: no cyanosis or edema. Skin: no rashes, ecchymosis, or lesions. Course Quality Measures none Orders Category Date Time Status In and Out Catheter X1 Care 06/09/24 03:[address] cervical spine wo/w con Stat Exams 06/09/24 03:[address] head/brain wo con Stat Exams 06/09/24 03:31 Taken CBC Stat Lab 06/09/24 03:44 Completed CMP [Comprehensive Metabolic Panel] Stat Lab 06/09/24 03:44 Completed Vital Signs Vital signs: Vital Signs Temperature 98.0 F 06/09/24 02:37 Pulse Rate 76 06/09/24 02:37 Respiratory Rate 15 06/09/24 02:37 Blood Pressure 119/71 06/09/24 02:37 Pulse Oximetry (%) 99 06/09/24 02:37 Oxygen Delivery Method Room Air 06/09/24 02:37 Fall MDM Narrative MDM Narrative:: Scribe Attestation: 06/09/24 - Ambika Cha am scribing for and in the presence of Dr. Sequeira. Wound was irrigated and dermabond was placed by NAVEEN Richards. Patient data External records reviewed:: [facility] previous records (Per chart review, patient was admitted here on 05/09/24 for sepsis 2/2 UTI.) Clinical information provided by:: patient Social determinants that could affect healthcare access:: none Patient has the following chronic illnesses:: Parkinson's disease How is presenting disease/condition affected by chronic disease/condition?: uneffected by Evaluation data The following diagnostics were reviewed and interpreted by me:: lab results and radiology exam(s) Lab and/or radiology exams considered but not ordered:: none Interpretation Summary: CBC and CMP are normal. Telerad Preliminary Report Draft Patient: LEO MONK [facility]. Record#: [id number] Birthdate: 1945 Age/Sex: 79 / F Location: [facility] Attending Dr: Ordering Physician: Date of Service: Procedure(s): Accession Number(s): cc: ~ CT scan of the head without intravenous contrast (axial sections with sagittal and coronal reformats). June 09, 2024 at 0354 hours Clinical History: 79 yo with fall out of bed. Comparison: None. Findings: There is no evidence of intracranial hemorrhage, mass effect or midline shift. There are periventricular white matter hypodensities, suggestive of chronic small vessel ischemia. The CSF spaces are prominent, consistent with volume loss. The calvarium is intact. Prominent atherosclerotic calcification is noted. Chronic left basal ganglia lacunar infarction. Left maxillary sinus fluid level. Suspect nondisplaced fracture of the left orbital floor/lateral wall the left maxillary sinus Impression: 1. No evidence of intracranial hemorrhage, mass effect or calvarial fracture. 2. Periventricular chronic small vessel ischemia and volume loss. 3. Suspect a nondisplaced fracture of the left orbital floor/lateral wall of left maxillary sinus with hemorrhage in the left maxillary sinus. Discussion Details: Results verbally communicated to : Dr. Mosqueda at 04:54 AM 06/09/2024 Report Electronically Signed By: Bill Jimenez 06/09/2024 5:02:55 Telerad Preliminary Report Draft Patient: LEO MONK [facility]. Record#: [id number] Birthdate: 1945 Age/Sex: 79 / F Location: [facility] Attending Dr: Ordering Physician: Date of Service: Procedure(s): Accession Number(s): cc: ~ CT scan of the cervical spine without intravenous contrast (axial sections with sagittal and coronal reformats) June 09, 2024 at 0354 hours Clinical History: Fall out of bed. Comparison: No prior study is available for comparison. Findings: There is no acute cervical fracture or traumatic subluxation. The paravertebral soft tissues are unremarkable. Disc space narrowing and spondylosis, most prominent at the C5-C6 and C6-C7. Impression: No evidence of acute cervical fracture or traumatic subluxation. Report Electronically Signed By: Bill Jimenez 06/09/2024 5:04:17 AM [EST] Medications / Prescriptions Medications or Prescriptions considered but not ordered:: none Medication administrations:: see above, if any Consultations Consultation(s) initiated? (list below): No Diagnosis Fall Differential Diagnosis: other (UTI, dehydration, electrolyte abnormality, ICH, abrasion, laceration) Most likely diagnosis given after review of the tests above:: see clinical impression below Admission Indicated Admission indicated?: not indicated Admission Request Was there a request for admission?: No Disposition Plan Disposition Plan: Discharge Discharge Attestation Discharge Attestation: The patient and all family members were given an opportunity to ask questions and understood the discharge instructions. Discharge instructions specifically effects, indications for sooner follow up or return to the emergency department, and the expected course of current diagnosis. Patient condition: Stable Discharge Plan Plan Patient Disposition: HOME (Self Care) Patient condition on transfer: Stable Prescriptions/Referrals Prescriptions/Med Rec: No Action Phenazopyridine * (PYRIDIUM *) 200 MG tablet 200 mg PO TIDPC Qty: 10 0RF metformin [Glucophage] 500 MG tablet 500 mg PO BIDAC Qty: 0 rivastigmine tartrate 4.5 mg capsule 4.5 mg PO QDAY carbidopa-levodopa 25-100 mg tablet 1 tab PO QDAY Patient Comments: TAKE 1 TABLET BY MOUTH DAILY lovastatin 40 mg tablet 40 mg PO BID Patient Comments: TAKE 1 TABLET BY MOUTH EVERY DAY sertraline 50 mg tablet 50 mg PO Q24H pramipexole 1 mg tablet 1 mg PO BID Patient Comments: TAKE 1 TABLET BY MOUTH TWICE DAILY Problem List Clinical Impression: Fracture of lateral wall of left orbit, Fall, Laceration Patient/Caregiver Discharge Instructions Education Materials: Preventing Falls How to ... Additional Instructions: Follow-up with your primary care provider in the next 48-72 hours for a recheck. Use ice packs for swelling to the area. Return to the ED for any worsening symptoms or as needed. Print Language: Mohawk Stand Alone Forms: Debbie Award Info., Patient Portal Info Letter
--- NOTE | 2024-06-09 03:31 | XR_ITS ---
Examination: CT brain head without contrast. 2-D sagittal coronal reconstructions Date and time of exam:June 09, 2024 0354 hours INDICATIONS: Ground-level fall today with injury to the head, head pain CTDI: vol (mGy):48.6 DLP: (mGycm):999 Technique: Multiple CT axial sections of the brain have been obtained, 5 mm slice thickness. Contrast has not been administered. 2-D sagittal, coronal reconstructions have been obtained Low dose protocols were performed. One or more of the following dose reduction techniques were used; automated exposure control, adjustment of the mA and/or KV according to patient size, use of iterative reconstruction technique. Findings: No significant ventricular enlargement. Intra-axial or extra-axial hemorrhage density is not seen. No mass effect or midline shift Basal cisterns are not remarkable. Fourth ventricle is midline. Cranial vault intact. Impression: Negative for acute hemorrhage, mass effect or midline shift Suspicious for nondisplaced fracture left inferior orbital rim, recommend CT maxillofacial study follow-up
--- NOTE | 2024-06-09 03:35 | XR_ITS ---
Examination: CT cervical spine without contrast 2-D sagittal reconstructions 2-D coronal reconstructions 3-D reconstructions. Exam date and time:June 09, 2024 0358 hours INDICATIONS: Ground-level fall today with into the neck, neck pain CTDI:vol (mGy) 6.71 DLP: (mGycm) 129 Technique: Multiple 2 mm axial sections of the cervical spine have been obtained. The coronal and sagittal reconstructions have been obtained. 3-D reconstructions have been obtained. Low dose protocols were performed. One or more of the following dose reduction techniques were used; automated exposure control, adjustment of the mA and/or KV according to patient size, use of iterative reconstruction technique. Findings: Axial sections demonstrate intact base of the skull. C1 exhibit satisfactory relationship to the odontoid. No acute cervical vertebral body fracture seen. Alignment posterior spinous processes satisfactory. Impression: No acute cervical fracture.
[2024-06-09 03:36] VITALS: BP 116/69; PULSE 72; RESP 16; TEMP 36.7; O2SAT 95
--- NOTE | 2024-06-09 03:40 | PD.EDADDENDU ---
Emergency Room Addendum Addendum Narrative: Procedure Note: Repair of facial laceration 2cm v-shaped laceration lateral to left eyebrow. Minimal gaping, no active bleeding Wound cleansed (hibiclens, saline) Dermabond applied. Wound edges approximated. Patient tolerated procedure well, condition improved.
[2024-06-09 03:54] LABS: Basophils % (Auto) 0 % (0-2.5); Eosinophils % (Auto) 0 % (0-10); Hematocrit 38.3 % (36.0-46.0); Hemoglobin 12.1 g/dL (12.0-16.0); Immature Granulocytes % (Auto) 0 % (0-0); Immature Granulocytes Auto 0.04 Thou/mm3 (0.00-0.00); Lymphocytes % (Auto) 40 % (10-50); Mean Corpuscular HGB Conc 31.6 g/dl (31.0-37.0); Mean Corpuscular Hemoglobin 28.9 pg (25.0-35.0); Mean Corpuscular Volume 91 fL (80-100); Monocytes # (Auto) 0.5 Thou/mm3 (0.0-0.8); Monocytes % (Auto) 5 % (0-12); Neutrophils # (Auto) 5.5 Thou/mm3 (1.8-7.7); Neutrophils % (Auto) 54 % (37-80); Nucleated Red Blood Cell % 0 /100 WBC (0); Platelet Count 220 Thou/mm3 (140-440); RDW Standard Deviation 52.1 fL (36.4-46.3); Red Blood Count 4.19 Miln/mm3 (4.00-5.20); White Blood Count 10.1 Thou/mm3 (3.6-11.0)
[2024-06-09 04:39] LABS: Alanine Aminotransferase 9 U/L (10-49); Albumin, Serum 3.9 gm/dL (3.4-4.8); Albumin/Globulin Ratio 2.6 (1.2-2.2); Alkaline Phosphatase 79 U/L (46-116); Anion Gap 8 (7-16); Aspartate Amino Transferase 11 U/L (0-34); BUN/Creatinine Ratio 19 Ratio (12-20); Bilirubin,Total 0.3 mg/dL (0.3-1.2); Blood Urea Nitrogen 15 mg/dL (9-23); Calcium 8.8 mg/dL (8.3-10.6); Calcium (Corrected) 8.9 mg/dL (8.5-10.1); Carbon Dioxide 26.3 mMol/L (20.0-31.0); Chloride 105 mMol/L (98-107); Creatinine (Component) 0.8 mg/dL (0.6-1.3); Globulin 1.5 gm/dL (2.3-3.5); Glucose 108 mg/dL (74-106); Osmolality,Calculated 279 (275-295); Potassium 4.4 mMol/L (3.4-5.1); Sodium 139 mMol/L (136-145); Total Protein 5.4 gm/dL (5.7-8.2); eGFR > 60 See Note
--- NOTE | 2024-06-09 05:03 | PRELIM_ITS ---
CT scan of the head without intravenous contrast (axial sections with sagittal and coronal reformats). June 09, 2024 at 0354 hours Clinical History: 79 yo with fall out of bed. Comparison: None. Findings: There is no evidence of intracranial hemorrhage, mass effect or midline shift. There are periventricular white matter hypodensities, suggestive of chronic small vessel ischemia. The CSF spaces are prominent, consistent with volume loss. The calvarium is intact. Prominent atherosclerotic calcification is noted. Chronic left basal ganglia lacunar infarction. Left maxillary sinus fluid level. Suspect nondisplaced fracture of the left orbital floor/lateral wall the left maxillary sinus Impression: 1. No evidence of intracranial hemorrhage, mass effect or calvarial fracture. 2. Periventricular chronic small vessel ischemia and volume loss. 3. Suspect a nondisplaced fracture of the left orbital floor/lateral wall of left maxillary sinus with hemorrhage in the left maxillary sinus. Discussion Details: Results verbally communicated to : Dr. Mosqueda at 04:54 AM 06/09/2024 Report Electronically Signed By: Bill Jimenez 06/09/2024 5:02:55 AM [EST]
--- NOTE | 2024-06-09 05:04 | PRELIM_ITS ---
CT scan of the cervical spine without intravenous contrast (axial sections with sagittal and coronal reformats) June 09, 2024 at 0354 hours Clinical History: Fall out of bed. Comparison: No prior study is available for comparison. Findings: There is no acute cervical fracture or traumatic subluxation. The paravertebral soft tissues are unremarkable. Disc space narrowing and spondylosis, most prominent at the C5-C6 and C6-C7. Impression: No evidence of acute cervical fracture or traumatic subluxation. Report Electronically Signed By: Bill Jimenez 06/09/2024 5:04:17 AM [EST]
--- NOTE | 2024-06-09 05:20 | PC.NURSE ---
Spoke to pts daughter Cindi, aware pt has discharge instructions; however, Cindi would like pt to stay for observation. Dr. Yaron torres, states pt does not meet criteria to be admitted. suggested for social security specialist to consult, daughter Cindi agreed.
[2024-06-09 06:06] VITALS: BP 140/77; PULSE 75; RESP 17; TEMP 36.1; O2SAT 95
--- NOTE | 2024-06-09 06:08 | PC.NURSE ---
vs taken. pt brief was dry and did not need to be changed
--- NOTE | 2024-06-09 06:11 | EDNOTE_ITS ---
Emergency Room Addendum Addendum Narrative: The daughter would like to have the patient evaluated by PT OT social work consult and possibly place back to [place] she feels that she cannot take care of her at home at this time. Patient has no UTI. Otherwise no electrolyte abnormality. Vitals are stable. The patient is signed out at [address] Nuñez again pending reevaluation by social work and placement.
[2024-06-09 07:01] LABS: Collection Type, Urine Catheter
[2024-06-09 07:14] LABS: Amorphous Crystals,Urine Present (Absent); Bacteria,Urine 1+; Bilirubin,Urine Negative (Negative); Blood,Urine Negative (Negative); Color,Urine Yellow (Lt Yel-Yel); Glucose, Urine Negative (Negative); Hyaline Casts,Urine < 1 /hpf (0-1); Ketones,Urine Negative (Negative); Leukocyte Esterase,Urine Negative (Negative); Nitrite,Urine Positive (Negative); PH,Urine 5.5 (5.0-7.0); Protein,Urine Negative (Neg - Trace); RBC,Urine 9 /hpf (0-3); Specific Gravity,Urine 1.022 (1.001-1.035); Squamous Epithelial Cell,Urine 1 /hpf (0-5); Urobilinogen,Urine Negative mg/dL (0.0-1.0); WBC,Urine 7 /hpf (0-5)
[2024-06-09 07:15] LABS: Clarity,Urine Cloudy (Clear/Hazy)
--- NOTE | 2024-06-09 07:55 | PC.NURSE ---
PT RESTING QUIETLY IN BED. RESPONDS WHEN SPOKEN TO AND ANSWERS QUESTIONS APPROPRIATELY. L) ORBITAL LAC RED/SWOLLEN. VSS. AWAITING SS/PT/OT EVAL. WILL CONT TO MONITOR.
--- NOTE | 2024-06-09 08:09 | PD.EDADDENDU ---
Emergency Room Addendum <Vicky Osorio - Last Filed: 06/09/24 13:20> Addendum Narrative: 0600: Care assumed from Dr. Mosqueda, the previous shift emergency physician. Past medical, surgical, social and family history reviewed. Vitals and home medications reviewed. I will assume the care of the patient at this time, pending social worker aide consult for possible placement. Please refer to the emergency department record for history and examination from initial visit.? The patient was placed in ED observation care at 06/09/2024 at 0600 hours. The patient was placed in ED observation care pending intermediate placement. The patients past medical history, social history, and family history were reviewed. The plan of care will include serial examinations. While in ED observation the patient will have access to water, food, and personal hygiene. If the patient takes home medication(s), they will be continued in ED observation. Physical exam by me shows patient under no acute distress at this time. Patient has right arm tremors consistent with Parkinson's disease. [facility] accepted patient for placement, ETA 12:30 hours. Evidently they have a intermediate who can take this patient now therefore the patient be discharged at 1130 hrs. the location and the intermediate's name is not known to me at this time. 1230: EMS here to transpor the patient to [facility], patient discharged. ED observation care ended at 06/09/2024 at 1230 hours. <Toñito Garcia MD - Last Filed: 06/09/24 17:19> Addendum Narrative: 0600: Care assumed from Dr. Mosqueda, the previous shift emergency physician. Past medical, surgical, social and family history reviewed. Vitals and home medications reviewed. I will assume the care of the patient at this time, pending social worker aide consult for possible placement. Please refer to the emergency department record for history and examination from initial visit.? Physical exam by me shows patient under no acute distress at this time. Patient has right arm tremors consistent with Parkinson's disease. Evidently they have a intermediate who can take this patient now therefore the patient be discharged at 1130 hrs[address] the location and the intermediate's name is not known to me at this time.
--- NOTE | 2024-06-09 08:45 | PC.NURSE ---
PT'S DAUGHTER JONAH CALLED FOR UPDATE ON PT. TOLD HER I WOULD NEED TO CALL HER BACK I WAS WITH ANOTHER PT; CALL BACK NUMBER [phone].
--- NOTE | 2024-06-09 09:14 | PC.NURSE ---
RETURNED DAUGHTER JONAH'S CALL. GAVE UPDATE ON PT AND ENCOURAGED HER TO COME SO SHE COULD TALK TO THE MD FACE TO FACE RE: HER MOTHER'S CONDITION. SHE SAID SHE WILL COME.
--- NOTE | 2024-06-09 09:49 | PC.SS ---
Addendum entered by Rahel Torres MONUMENT STONECUTTER 06/09/24 11:58: [facility] able to transport the patient at 12:30pm. Bed side nurse and patient's daughter aware. Patient agreeable. ED attending informed of d/c plan. Addendum entered by Rahel Torres [facility] 06/09/24 11:21: SS update: received call from Faye with [employer] insurance informing they will huy authorization to the patient for SNF with [facility]. Notified Lee Ann at [facility] and informs she will notify once authorization was been received. Addendum entered by Rahel Torres MONUMENT STONECUTTER 06/09/24 10:49: SS update: Lee Ann at [facility] is able to accept the patient if patient's insurance gives authorization. Addendum entered by Rahel Torres MONUMENT STONECUTTER 06/09/24 10:47: SS update: spoke with Faye from [email or web address], she will review patient's clinicals to determine if eligble to authorize for SNF. Addendum entered by Rahel Torres MONUMENT STONECUTTER 06/09/24 10:41: PASRR completed. Addendum entered by Rahel Torres MONUMENT STONECUTTER 06/09/24 10:36: SNF inquiry sent via [employer]. Pending responses. Addendum entered by Rahel Torres [facility] 06/09/24 10:04: SS update: spoke with patient and patient's daughter Cindi via phone call. Both parties were agreeable for SNF placement as PT has recommended. Preferred SNF is [facility]. Both parties are aware that the patient will require insurance authorization for SNF placement. Original Note: PT Demetrius, informs he recommends SNF for the patient. SS to speak with patient/family to make aware of recommendation.
[2024-06-09 09:50] VITALS: BMI 11.0
[2024-06-09 10:26] VITALS: BP 118/77; PULSE 71; RESP 20; TEMP 36.9; O2SAT 97
--- NOTE | 2024-06-09 11:29 | PC.NURSE ---
TALA CASTELAN CALLED THAT PT'S INSURANCE GAVE AUTH FOR TRANSFER TO [facility]. WILL INFORM DAUGHTER.
--- NOTE | 2024-06-09 11:32 | PC.NURSE ---
PREPARING TO CALL PT'S DAUGHTER, JONAH, WHEN SHE CALLED ME. INFORMED HER OF PT'S TRANSFER TO [facility]. RECEIVED CALL FROM TALA THAT TRANSPORT WILL BE HERE AT 12:30.
--- NOTE | 2024-06-09 12:17 | PC.NURSE ---
REPORT GIVEN TO DELIA WALLACE AT [facility].
[2024-06-09 12:23] VITALS: BP 132/76; PULSE 68; RESP 18; TEMP 36.4; O2SAT 98
--- NOTE | 2024-06-09 12:35 | PC.NURSE ---
[facility] W/ TRANSPORT FROM [facility] HERE FOR PT. PT DISCHARGED TO [facility]; TAKEN TO [facility] VIA W/C. D/C PACKET GIVEN TO [facility].
== END 2024-06-09 12:37 | disposition home or self-care (01) ==
PROVIDERS: Emergency Medicine; Emergency Provider Emergency Medicine; PCP Internal Medicine
DX: S02.842A Fracture of lateral orbital wall, left side, initial encounter for closed fracture (principal); W06.XXXA Fall from bed, initial encounter; S01.112A Laceration without foreign body of left eyelid and periocular area, initial encounter; G20.A1 Parkinson's disease without dyskinesia, without mention of fluctuations; M54.2 Cervicalgia
CPT/HCPCS: 12011; 51701; 36415; 70450; 72127; 80053; 81001; 85025; 99285; A4649; Q9967

== ENCOUNTER 2024-12-27 21:09 | Emergency (ER) | payer OTHER, SELFPAY ==
[2024-12-27 21:12] VITALS: PULSE 74; RESP 16; O2SAT 96; BMI 21.7
[2024-12-27 21:16] VITALS: BP 140/80; PULSE 76; RESP 18; TEMP 37.2; O2SAT 95
--- NOTE | 2024-12-27 21:28 | PD.EDADULT ---
ED General RME/HPI General Chief complaint: Urogenital-Female Stated complaint: WEAKNESS Time Seen by Provider: 12/27/24 21:22 Arrival date/time: 12/27/24 21:09 CC: Burning with urination HPI patient thinks has been for 2 days. Patient denies fever. EMS reports stable vital signs and route. Patient states she has chronic back pain secondary to scoliosis and Parkinson's. Related Data Home Medications ?Medication ?Instructions ?Recorded ?Confirmed metformin 500 mg tablet 500 mg PO BIDAC #0 tabs 03/06/16 05/10/24 (Glucophage) carbidopa 25 mg-levodopa 100 mg 1 tab PO QDAY 05/10/24 05/10/24 tablet lovastatin 40 mg tablet 40 mg PO BID 05/10/24 05/10/24 pramipexole 1 mg tablet 1 mg PO BID 05/10/24 05/10/24 rivastigmine tartrate 4.5 mg 4.5 mg PO QDAY 05/10/24 05/10/24 capsule sertraline 50 mg tablet 50 mg PO Q24H 05/10/24 05/10/24 Held on 05/13/24. Instructions: Please hold until you follow up with your primary care provider Previous Rx's ?Medication ?Instructions ?Recorded Phenazopyridine * (PYRIDIUM *) 200 mg PO TIDPC #10 tabs 03/01/16 Held on 05/13/24. Instructions: Continue to hold until you follow up with your primary care provider or neurologist ciprofloxacin HCl 500 mg tablet 500 mg PO BID #10 tabs 12/27/24 (Cipro) Allergies Allergy/AdvReac Type Severity Reaction Status Date / Time codeine Allergy Mild SHAKEY Verified 12/27/24 21:12 Review of Systems Review of Systems Narrative Review of Systems: GEN: No fever, no chills, no weight loss EYES: No discharge, no visual changes, no pain HEENT: No ear pain, no congestion, no sore throat PULM: No shortness of breath, no cough, no congestion CV: No chest pain, no dyspnea on exertion, no palpitations GI: No nausea, no vomiting, no diarrhea, no pain, no constipation : No frequency, no urgency, no dysuria MUSC/SKEL: No joint pain, no back pain SKIN: No rash PSYCH: No hallucinations, no depression HEME/LYMPH: No easy bleeding or bruising tendencies NEURO: No weakness, no headache Past Medical History Past Medical History NEUROLOGIC: Positive Neurological Disorders and Parkinson's Disease CARDIAC: Negative Congestive Heart Failure RESPIRATORY: Negative Chronic Obstructive Pulmonary Disease (COPD) GENITOURINARY: Negative Renal Disease ENDOCRINE: Negative Diabetes Mellitus Type 1 or Diabetes Mellitus Type 2 Social History SMOKING STATUS: Never smoker SUBSTANCE USE: does not use ED Exam Narrative Physical exam: [General: Thin, borderline emaciated, not in any acute distress Head normocephalic HEENT: Eyes pupils are PERRLA EOMs are intact mouth pink dry membranes uvula midline. All of the subsystems of HEENT are within acceptable limits Neck is supple nontender Chest equal chest rise nontender to palpation Respiratory: Clear to auscultation no wheezes crackles or rubs CV: Rate rhythm is regular no murmurs rubs or clicks Abdomen is soft nontender no masses positive bowel sounds all 4 quadrants Back: No CVA tenderness no spinous process tenderness from cervical spine thoracic and lumbar spine Skin: Intact no petechiae rash induration ulceration or crepitus Extremities: Moving all extremity against resistance cap refill less than 2 seconds neurosensory intact Neuro: Awake alert oriented x2, person and place, Glascow coma 15 no focal deficits] Course Course Course Narrative: Patient is exceedingly poor historian secondary to her Parkinson's, I was here last for urosepsis. Patient is nitrite positive leukocyte esterase positive with 2+ bacteria but very few WBCs. My concern is that the patient is early and developing a UTI we will dress this with antibiotics and discharge her home. Patient has current stable vital signs and no fever review of the micros shows in April 2024 she grew out Klebsiella pneumonia which is susceptible to just about everything except amoxicillin Quality Measures none Orders Category Date Time Status IV [Insert IV] NOW Care 12/27/24 21:17 Active Straight [In and Out Catheter] X1 Care 12/27/24 21:31 Completed CBC Stat Lab 12/27/24 21:15 Completed CMP [Comprehensive Metabolic Panel] Stat Lab 12/27/24 21:15 Received Urinalysis Stat Lab 12/27/24 21:33 Completed Vital Signs Vital signs: Vital Signs Temperature 98.9 F 12/27/24 21:16 Pulse Rate 76 12/27/24 21:16 Respiratory Rate 18 12/27/24 21:16 Blood Pressure 140/80 H 12/27/24 21:16 Pulse Oximetry (%) 95 12/27/24 21:16 Oxygen Delivery Method Room Air 12/27/24 21:16 Discharge Plan Plan Patient Disposition: HOME (Self Care) Patient condition on transfer: Stable Prescriptions/Referrals Prescriptions/Med Rec: New ciprofloxacin HCl [Cipro] 500 mg tablet 500 mg PO BID Qty: 10 0RF No Action Phenazopyridine * (PYRIDIUM *) 200 MG tablet 200 mg PO TIDPC Qty: 10 0RF metformin [Glucophage] 500 MG tablet 500 mg PO BIDAC Qty: 0 rivastigmine tartrate 4.5 mg capsule 4.5 mg PO QDAY carbidopa-levodopa 25-100 mg tablet 1 tab PO QDAY Patient Comments: TAKE 1 TABLET BY MOUTH DAILY lovastatin 40 mg tablet 40 mg PO BID Patient Comments: TAKE 1 TABLET BY MOUTH EVERY DAY sertraline 50 mg tablet 50 mg PO Q24H pramipexole 1 mg tablet 1 mg PO BID Patient Comments: TAKE 1 TABLET BY MOUTH TWICE DAILY Problem List Clinical Impression: UTI (urinary tract infection) Patient/Caregiver Discharge Instructions Other Activity Instructions:: Take the medications until completely gone, if there is worsening of symptoms in spite of these medications return the emergency room for reevaluation. Education Materials: ED CYSTITIS Female Adult Print Language: Urdu Stand Alone Forms: Debbie Award Info., Patient Portal Info Letter PA/CHIEF ENGINE[employer] Supervising Physician PA/[employer] Supervising Physician: Terrance Prescott ENP MDM Clinical Information Provided by: patient and EMS Medical Records reviewed [facility] and EMS Meds/Rx considered, not ordered None Labs/Rad/Tests considered, not ordered None Chronic Illness/Social Conditions Explain: Parkinson's EKG EKG not done
[2024-12-27 21:48] LABS: Collection Type, Urine Clean Catch
[2024-12-27 21:52] LABS: Basophils # (Auto) 0.0 Thou/mm3 (0.0-0.2); Basophils % (Auto) 0 % (0-2.5); Eosinophils # (Auto) 0.1 Thou/mm3 (0.0-0.5); Eosinophils % (Auto) 1 % (0-10); Hematocrit 39.3 % (36.0-46.0); Hemoglobin 12.3 g/dL (12.0-16.0); Immature Granulocytes Auto 0.03 Thou/mm3 (0.00-0.00); Lymphocytes # (Auto) 5.0 Thou/mm3 (1.0-4.8); Lymphocytes % (Auto) 47 % (10-50); Mean Corpuscular HGB Conc 31.3 g/dl (31.0-37.0); Mean Corpuscular Hemoglobin 28.6 pg (25.0-35.0); Mean Corpuscular Volume 91 fL (80-100); Monocytes # (Auto) 0.5 Thou/mm3 (0.0-0.8); Monocytes % (Auto) 5 % (0-12); Neutrophils # (Auto) 5.0 Thou/mm3 (1.8-7.7); Neutrophils % (Auto) 47 % (37-80); Nucleated Red Blood Cell # 0.00 Thou/mm3 (0.00-0.00); Nucleated Red Blood Cell % 0 /100 WBC (0); Platelet Count 235 Thou/mm3 (140-440); RDW Standard Deviation 48.4 fL (36.4-46.3); Red Blood Count 4.30 Miln/mm3 (4.00-5.20); White Blood Count 10.6 Thou/mm3 (3.6-11.0)
[2024-12-27 22:07] LABS: Bacteria,Urine 2+; Bilirubin,Urine 1+ (Negative); Blood,Urine Negative (Negative); Calcium Oxalate Crystals,Urine Rare; Clarity,Urine Turbid (Clear/Hazy); Color,Urine Dark-Brown (Lt Yel-Yel); Glucose, Urine Negative (Negative); Ketones,Urine Negative (Negative); Leukocyte Esterase,Urine Negative (Negative); Nitrite,Urine Positive (Negative); PH,Urine 5.5 (5.0-7.0); Protein,Urine Trace (Neg - Trace); RBC,Urine 1 /hpf (0-3); Specific Gravity,Urine 1.025 (1.001-1.035); Squamous Epithelial Cell,Urine 1 /hpf (0-5); Urobilinogen,Urine 6.0 mg/dL (0.0-1.0); WBC,Urine 4 /hpf (0-5)
[2024-12-27 22:21] LABS: Alanine Aminotransferase 12 U/L (10-49); Albumin, Serum 4.4 gm/dL (3.4-4.8); Albumin/Globulin Ratio 3.4 (1.2-2.2); Alkaline Phosphatase 81 U/L (46-116); Anion Gap 11 (7-16); Aspartate Amino Transferase 25 U/L (0-34); BUN/Creatinine Ratio 13 Ratio (12-20); Bilirubin,Total 0.3 mg/dL (0.3-1.2); Blood Urea Nitrogen 12 mg/dL (9-23); Calcium 9.0 mg/dL (8.3-10.6); Calcium (Corrected) 9.0 mg/dL (8.5-10.1); Carbon Dioxide 25.2 mMol/L (20.0-31.0); Chloride 103 mMol/L (98-107); Creatinine (Component) 0.9 mg/dL (0.6-1.3); Estimated Creatinine Clearance 42.6 mL/min (>60); Globulin 1.3 gm/dL (2.3-3.5); Glucose 108 mg/dL (74-106); Osmolality,Calculated 278 (275-295); Potassium 4.1 mMol/L (3.4-5.1); Sodium 139 mMol/L (136-145); Total Protein 5.7 gm/dL (5.7-8.2); eGFR > 60 See Note
[2024-12-27] MEDS: cefTRIAXone/D5w 1gm IV premix 1 GM/50 ML BAG IV (22:41)
[2024-12-27 23:34] VITALS: BP 140/80; PULSE 85; RESP 18; O2SAT 95
== END 2024-12-27 23:35 | disposition home or self-care (01) ==
LOC: SERX 23:24
PROVIDERS: Registered Nurse General Practice; Emergency Provider Emergency Medicine
DX: N39.0 Urinary tract infection, site not specified (principal); G20.A1 Parkinson's disease without dyskinesia, without mention of fluctuations; G89.29 Other chronic pain; M41.9 Scoliosis, unspecified
CPT/HCPCS: 36415; 51701; 80053; 81001; 85025; 96365; 99283; J0696

== ENCOUNTER 2025-01-01 09:37 | Inpatient (IN) | payer OTHER, MEDICARE, SELFPAY ==
[2025-01-01] VITALS (11 sets, daily range): BP systolic 118–158; BP diastolic 77–91; PULSE 64–95; RESP 16–96; TEMP 36.3–37.7; O2SAT 93–98; BMI 21.7
--- NOTE | 2025-01-01 10:52 | EKG_ITS ---
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
--- NOTE | 2025-01-01 10:53 | XR_ITS ---
EXAMINATION: AP chest single view TECHNIQUE: AP portable semiupright chest single view Date and time: January 01, 2025, 1127 hours, comparison May 09, 2024 INDICATIONS: Sepsis alert today. FINDINGS: Normal heart size Reduced inspiratory effort Accentuation of bronchovascular markings. No lobar pneumonia. Prominent osteopenia IMPRESSION: Bronchitis pattern
[2025-01-01] MEDS: SODIUM CHLORIDE 0.9% 1000 ML 1,572 ML 1572 ML IV (11:14)
[2025-01-01 11:17] LABS: Collection Type, Urine Clean Catch
[2025-01-01 11:23] LABS: Lactate (Lactic Acid) 0.8 mMol/L (0.4-2.0)
[2025-01-01 11:27] LABS: Basophils # (Auto) 0.0 Thou/mm3 (0.0-0.2); Basophils % (Auto) 0 % (0-2.5); Eosinophils # (Auto) 0.1 Thou/mm3 (0.0-0.5); Eosinophils % (Auto) 1 % (0-10); Hematocrit 36.8 % (36.0-46.0); Hemoglobin 11.6 g/dL (12.0-16.0); Immature Granulocytes Auto 0.01 Thou/mm3 (0.00-0.00); Lymphocytes # (Auto) 3.6 Thou/mm3 (1.0-4.8); Lymphocytes % (Auto) 49 % (10-50); Mean Corpuscular HGB Conc 31.5 g/dl (31.0-37.0); Mean Corpuscular Hemoglobin 29.1 pg (25.0-35.0); Mean Corpuscular Volume 92 fL (80-100); Monocytes # (Auto) 0.4 Thou/mm3 (0.0-0.8); Monocytes % (Auto) 6 % (0-12); Neutrophils # (Auto) 3.2 Thou/mm3 (1.8-7.7); Neutrophils % (Auto) 44 % (37-80); Nucleated Red Blood Cell # 0.00 Thou/mm3 (0.00-0.00); Nucleated Red Blood Cell % 0 /100 WBC (0); Platelet Count 216 Thou/mm3 (140-440); RDW Standard Deviation 49.5 fL (36.4-46.3); Red Blood Count 3.99 Miln/mm3 (4.00-5.20); White Blood Count 7.4 Thou/mm3 (3.6-11.0)
[2025-01-01 11:28] LABS: Amorphous Crystals,Urine Present (Absent); Bilirubin,Urine Negative (Negative); Blood,Urine Negative (Negative); Color,Urine Lt-Yellow (Lt Yel-Yel); Culture Indicated,Urine Not Indicated; Glucose, Urine Negative (Negative); Ketones,Urine Negative (Negative); Leukocyte Esterase,Urine Negative (Negative); Nitrite,Urine Negative (Negative); PH,Urine 7.5 (5.0-7.0); Protein,Urine Negative (Neg - Trace); RBC,Urine 1 /hpf (0-3); Specific Gravity,Urine 1.022 (1.001-1.035); Squamous Epithelial Cell,Urine < 1 /hpf (0-5); Urobilinogen,Urine Negative mg/dL (0.0-1.0); WBC,Urine 4 /hpf (0-5)
[2025-01-01 11:44] LABS: INR 1.0 (0.9-1.3); Prothrombin Time 10.3 Seconds (9.0-12.2)
[2025-01-01 11:51] LABS: Alanine Aminotransferase 10 U/L (10-49); Albumin, Serum 4.2 gm/dL (3.4-4.8); Albumin/Globulin Ratio 3.8 (1.2-2.2); Alkaline Phosphatase 72 U/L (46-116); Anion Gap 8 (7-16); Aspartate Amino Transferase 16 U/L (0-34); BUN/Creatinine Ratio 16 Ratio (12-20); Bilirubin,Total 0.3 mg/dL (0.3-1.2); Blood Urea Nitrogen 11 mg/dL (9-23); Calcium 8.5 mg/dL (8.3-10.6); Calcium (Corrected) 8.5 mg/dL (8.5-10.1); Carbon Dioxide 28.0 mMol/L (20.0-31.0); Chloride 105 mMol/L (98-107); Creatinine (Component) 0.7 mg/dL (0.6-1.3); Estimated Creatinine Clearance 54.8 mL/min (>60); Globulin 1.1 gm/dL (2.3-3.5); Glucose 104 mg/dL (74-106); Magnesium 2.3 mg/dL (1.6-2.6); Osmolality,Calculated 280 (275-295); Phosphorous 4.5 mg/dL (2.4-5.1); Potassium 4.2 mMol/L (3.4-5.1); Procalcitonin < 0.04 ng/ml (0.0-0.49); Sodium 141 mMol/L (136-145); Total Protein 5.3 gm/dL (5.7-8.2); Troponin I < 0.020 ng/mL (0.0-0.045); eGFR > 60 See Note
[2025-01-01 11:52] LABS: Clarity,Urine Hazy (Clear/Hazy)
[2025-01-01 12:05] LABS: B-Type Natriuretic Peptide 47 pg/mL (0-100)
--- NOTE | 2025-01-01 12:43 | PD.EDAMS ---
Altered Mental Status RME/HPI General Chief Complaint: Altered Mental Status Stated Complaint: ALTERED Time Seen by Provider: 01/01/25 10:43 Arrival date/time: 01/01/25 09:37 RME / HPI RME / HPI narrative: 79-year-old female presented with altered mental status that began on Saturday (2024-12-27) and has persisted, with acute worsening this morning characterized by combativeness and refusal to get out of bed. History was obtained from family due to the patient's inability to provide details secondary to her mental status; she was oriented only to name and location. Family reports a recent diagnosis of urinary tract infection on 2024-12-28. Patient denies other symptoms. Pre-arrival, no treatments were administered. Related Data Home Medications ?Medication ?Instructions ?Recorded ?Confirmed metformin 500 mg tablet 500 mg PO BIDAC #0 tabs 03/06/16 05/10/24 (Glucophage) carbidopa 25 mg-levodopa 100 mg 1 tab PO QDAY 05/10/24 05/10/24 tablet lovastatin 40 mg tablet 40 mg PO BID 05/10/24 05/10/24 pramipexole 1 mg tablet 1 mg PO BID 05/10/24 05/10/24 rivastigmine tartrate 4.5 mg 4.5 mg PO QDAY 05/10/24 05/10/24 capsule sertraline 50 mg tablet 50 mg PO Q24H 05/10/24 05/10/24 Held on 05/13/24. Instructions: Please hold until you follow up with your primary care provider Previous Rx's ?Medication ?Instructions ?Recorded Phenazopyridine * (PYRIDIUM *) 200 mg PO TIDPC #10 tabs 03/01/16 Held on 05/13/24. Instructions: Continue to hold until you follow up with your primary care provider or neurologist ciprofloxacin HCl 500 mg tablet 500 mg PO BID #10 tabs 12/27/24 (Cipro) Allergies Allergy/AdvReac Type Severity Reaction Status Date / Time codeine Allergy Mild SHAKEY Verified 01/01/25 10:20 Review of Systems Review of Systems ROS Unobtainable: unobtainable due to mental status Past Medical History Past Medical History NEUROLOGIC: Positive Neurological Disorders and Parkinson's Disease Social History SMOKING STATUS: Never smoker SUBSTANCE USE: does not use ED Exam Narrative Physical exam: General: Frail, elderly, lying in bed, appears unwell. Eyes: Appear normal with no scleral icterus. HENT: Atraumatic. Moist mucous membranes, no pharyngeal erythema, edema or lesions. Neck: Atraumatic, supple. Cardiac: Regular rate and rhythm. Respiratory: Lungs generally clear to auscultation bilaterally. Abdomen: Abdomen soft, non-distended; mild lower abdominal tenderness; no rebound or guarding. MS: Swelling to bilateral lower extremities. Skin: No exanthems, no cyanosis, no diaphoresis. Neurologic: Altered, appears confused, oriented to person and place. Course Course Course Narrative: 1300h: Labs are generally unremarkable. The patient is still altered from baseline, will obtain CT brain. 1548h: Due to persistent altered mental status and encephalopathy, will admit for further evaluation and management. Labs were unremarkable. UDS positive for Fentanyl. I discussed case with hospitalist team C for admission. Quality Measures none Orders Category Date Time Status Admit to Inpatient Status Routine Admission 01/01/25 15:49 Active Patient Condition Routine Admission 01/01/25 15:49 Ordered COVID-19 Screening Questionnaire NOW Care 01/01/25 15:48 Active Supervisor Tumblers STAT Care 01/01/25 10:52 Active Continuous Pulse Oximetry STAT Care 01/01/25 10:52 Completed Decision to Admit X1 Care 01/01/25 15:48 Active EKG (ED ONLY) *Do not use* NOW Care 01/01/25 10:52 Completed In and Out Catheter X1PRN Care 01/01/25 10:52 Completed Insert IV NOW Care 01/01/25 10:52 Active NPO NOW Care 01/01/25 15:50 Active NPO STAT Care 01/01/25 10:52 Active Notify provider NEEDED Care 01/01/25 15:49 Active Diet NPO (NOW) Diet 01/01/25 15:[address] head/brain wo con Stat Exams 01/01/25 13:02 Completed EKG (ED Only) Stat Exams 01/01/25 10:52 Draft XR chest 1V SEPSIS PROTOCOL Stat Exams 01/01/25 10:53 Completed Ammonia Stat Lab 01/01/25 15:48 Ordered B-Type Natriuretic Peptide Stat Lab 01/01/25 11:10 Completed Blood Culture (Lab) Stat Lab 01/01/25 11:15 Received CBC AM DRAW Lab 01/02/25 05:00 Ordered CBC AM DRAW Lab 01/03/25 05:00 Ordered CBC AM DRAW Lab 01/04/25 05:00 Ordered CBC Stat Lab 01/01/25 11:10 Completed Comprehensive Metabolic Panel AM DRAW Lab 01/02/25 05:00 Ordered Comprehensive Metabolic Panel Stat Lab 01/01/25 11:10 Completed Drug Screen,Urine Stat Lab 01/01/25 11:07 Completed Lactate (Lactic Acid) Stat Lab 01/01/25 11:10 Completed Lipid Panel AM DRAW Lab 01/02/25 05:00 Ordered Magnesium AM DRAW Lab 01/02/25 05:00 Ordered Magnesium Stat Lab 01/01/25 11:10 Completed Phosphorous AM DRAW Lab 01/02/25 05:00 Ordered Phosphorous Stat Lab 01/01/25 11:10 Completed Procalcitonin Stat Lab 01/01/25 11:10 Completed Prothrombin Time with INR Stat Lab 01/01/25 11:10 Completed Troponin I Stat Lab 01/01/25 11:10 Completed Urinalysis, C/S if Indicated Stat Lab 01/01/25 11:07 Completed Acetaminophen Tab [Tylenol Tab] Med 01/01/25 15:49 Active 650 mg PO Q6H PRN Heparin Inj Med 01/01/25 22:00 Active 5,000 unit SC Q8HR Sodium Chloride 0.9% 1000 ml [Ns] 1,572 ml Med 01/01/25 10:52 Discontinued IV 1,572 mls/hr Code Status Routine Oth 01/01/25 15:49 Ordered Oxygen Delivery PRN RT 01/01/25 15:49 Active Vital Signs Vital signs: Vital Signs Temperature 98.6 F 01/01/25 09:40 Pulse Rate 74 01/01/25 09:40 Respiratory Rate 18 01/01/25 09:40 Blood Pressure 158/86 H 01/01/25 09:40 Pulse Oximetry (%) 97 01/01/25 09:40 Oxygen Delivery Method Room Air 01/01/25 09:40 Pulse ox is 97% on room air which is adequate. Altered Mental Status MDM Narrative MDM Narrative:: Lulu Cha am scribing for and in the presence of Dr. Obrien. Patient data External records reviewed:: [facility] previous records and EMS form Clinical information provided by:: EMS Social determinants that could affect healthcare access:: none Patient has the following chronic illnesses:: Parkinson's How is presenting disease/condition affected by chronic disease/condition?: exacerbated by Evaluation data The following diagnostics were reviewed and interpreted by me:: lab results, radiology exam(s) and EKG tracing(s) (EKG @ 11:10h, interpreted by me, normal sinus rhythm, rate 65, no STEMI. ) Lab and/or radiology exams considered but not ordered:: None Interpretation Summary: Ordering Physician: Marilia Obrien MD Date of Service: 01/01/25 Procedure(s): CT head/brain wo con Accession Number(s): [id number] cc: Artur Anderson MD; Gallo Hightower MD; Marilia Obrien MD~ Examination: CT brain head without contrast. 2-D sagittal coronal reconstructions Date and time of exam: January 01, 2025, 1335 hours, comparison July 09, 2024 INDICATIONS: Onset altered mental status today CTDI: vol (mGy): 47.5 DLP: (mGycm): 904 Technique: Multiple CT axial sections of the brain have been obtained, 5 mm slice thickness. Contrast has not been administered. 2-D sagittal, coronal reconstructions have been obtained Low dose protocols were performed. One or more of the following dose reduction techniques were used; automated exposure control, adjustment of the mA and/or KV according to patient size, use of iterative reconstruction technique. Findings: No significant ventricular enlargement. Intra-axial or extra-axial hemorrhage density is not seen. No mass effect or midline shift Basal cisterns are not remarkable. Fourth ventricle is midline. Cranial vault intact. Impression: Patient motion degrades scan image quality No gross hemorrhage mass effect or midline shift Dictated By: Gallo Hightower MD Signed By: <Electronically signed by Gallo Hightower MD in OV> 01/01/25 1346 Ordering Physician: Marilia Obrien MD Date of Service: 01/01/25 Procedure(s): XR chest 1V SEPSIS PROTOCOL Accession Number(s): [id number] cc: Gallo Hightower MD; Marilia Obrien MD~ EXAMINATION: AP chest single view TECHNIQUE: AP portable semiupright chest single view Date and time: January 01, 2025, 1127 hours, comparison May 09, 2024 INDICATIONS: Sepsis alert today. FINDINGS: Normal heart size Reduced inspiratory effort Accentuation of bronchovascular markings. No lobar pneumonia. Prominent osteopenia IMPRESSION: Bronchitis pattern Dictated By: Gallo Hightower MD Signed By: <Electronically signed by Gallo Hightower MD in OV> 01/01/25 1138 Medications / Prescriptions Medications or Prescriptions considered but not ordered:: None Medication administrations:: Medication Administration History Acetaminophen (Acetaminophen 325 Mg Tablet) 650 mg PO Q6H PRN PRN Reason: Fever >101.5 Stop: 01/31/25 15:48 Heparin Sodium (Porcine) (Heparin Sod Inj 5000 Unit/Ml Vial) 5,000 unit SC Q8HR TITA Stop: 01/15/25 21:59 Discontinued Medications Sodium Chloride (Ns) 1,572 mls @ 1,572 mls/hr 30 ml/kg infuse over 60 min (1572 ml) IV .Q1H ONE Stop: 01/01/25 11:51 Last Infusion: 01/01/25 12:14 Dose: Infused Documented By: Admin: 01/01/25 11:14 Dose: 1,572 mls/hr Documented By: VL See above Consultations Consultation(s) initiated? (list below): Yes Consultation #1 (Physician, Specialty, Details): See course Diagnosis Differential diagnosis altered mental status: altered mental status, delirium, dementia, hypoglycemia, hyponatremia, subarachnoid hemorrhage and sepsis Most likely diagnosis given after review of the tests above:: Altered mental status Encephalopathy Admission Indicated Admission indicated?: indicated Admission Request Was there a request for admission?: Yes Admission Attestation Admission request attestation: Discussed case with [] from Hospitalist service regarding admission. Discussed patients ED course, exam findings, labs, and radiology results. The Hospitalist [agrees,declines] to accept the patient for admission. Disposition Plan Disposition Plan: Admit Discharge Plan Plan Patient Disposition: Admit Acute Care w/in Hospital Prescriptions/Referrals Prescriptions/Med Rec: No Action Phenazopyridine * (PYRIDIUM *) 200 MG tablet 200 mg PO TIDPC Qty: 10 0RF metformin [Glucophage] 500 MG tablet 500 mg PO BIDAC Qty: 0 ciprofloxacin HCl [Cipro] 500 mg tablet 500 mg PO BID Qty: 10 0RF rivastigmine tartrate 4.5 mg capsule 4.5 mg PO QDAY carbidopa-levodopa 25-100 mg tablet 1 tab PO QDAY Patient Comments: TAKE 1 TABLET BY MOUTH DAILY lovastatin 40 mg tablet 40 mg PO BID Patient Comments: TAKE 1 TABLET BY MOUTH EVERY DAY sertraline 50 mg tablet 50 mg PO Q24H pramipexole 1 mg tablet 1 mg PO BID Patient Comments: TAKE 1 TABLET BY MOUTH TWICE DAILY Referrals: Artur Anderson MD [Primary Care Provider, Internal Medicine] - In 1 week Problem List Clinical Impression: AMS (altered mental status), Encephalopathy Patient/Caregiver Discharge Instructions Print Language: Spanish Stand Alone Forms: Debbie Award Info., Patient Portal Info Letter
--- NOTE | 2025-01-01 13:02 | XR_ITS ---
Examination: CT brain head without contrast. 2-D sagittal coronal reconstructions Date and time of exam: January 01, 2025, 1335 hours, comparison July 09, 2024 INDICATIONS: Onset altered mental status today CTDI: vol (mGy): 47.5 DLP: (mGycm): 904 Technique: Multiple CT axial sections of the brain have been obtained, 5 mm slice thickness. Contrast has not been administered. 2-D sagittal, coronal reconstructions have been obtained Low dose protocols were performed. One or more of the following dose reduction techniques were used; automated exposure control, adjustment of the mA and/or KV according to patient size, use of iterative reconstruction technique. Findings: No significant ventricular enlargement. Intra-axial or extra-axial hemorrhage density is not seen. No mass effect or midline shift Basal cisterns are not remarkable. Fourth ventricle is midline. Cranial vault intact. Impression: Patient motion degrades scan image quality No gross hemorrhage mass effect or midline shift
[2025-01-01 13:55] LABS: Amphetamine/Methamp Scrn,U Negative (Negative); Barbiturate Screen,Urine Negative (Negative); Benzodiazepines Screen,Urine Negative (Negative); Benzoylecgonine Screen, Ur Negative (Negative); Fentanyl Screen,Urine Positive (Negative); Opiate Screen,Urine Negative (Negative); THC Screen,Urine Negative (Negative)
--- NOTE | 2025-01-01 16:32 | ESHP_ITS ---
<Statement entered by Steve Larson MD - 01/12/25 08:31> I reviewed above note and agree with findings and plans. I have also personally examined the patient with medicine team and went over assessment and plan with medical team including internal affairs commander and resident physician. Documentation for date of: 01/01/25 [facility] History of Present Illness History of present illness: HPI: 79-year-old female with a past medical history of Parkinson's, depression, hyperlipidemia, hypertension who presented to the ED on 01/01/2025 with altered mental status. All of the patient's history was obtained from the patient's daughter, Cindi. The patient presented to the ED on 12/27/2024 and was found to have a UTI. She was discharged on ciprofloxacin oral and was compliant with her medication. Since then she has had worsening mentation, and the morning of presentation the patient was combative when the patient's daughter tried to get her out of bed. At baseline the patient holds a conversation and walks with a walker. Patient was admitted for: Acute encephalopathy secondary to polypharmacy versus opioids. ED course: * Significant vitals: BP 158/86. * Significant labs: No significant labs * Imaging: Head CT was negative for gross hemorrhage or infarction. Chest x-ray showed evidence of bronchitis. EKG showed a sinus rhythm with low voltage QRS, rate of 65, QTc 416. * Urinalysis: Positive for fentanyl. pH 7.5, positive for amorphous crystals, negative for bacteria. * Patient was started on fluids. The internal medicine team ordered Narcan 0.4 mg IV push x 1 upon exam. History: (Gathered from patient's daughter) * Past medical history: As above in HPI. * Surgical history: Denies. * Social history: Lives with daughter, no alcohol, cigarette, or drug use. * Allergies: No known drug allergies Home medications: * Carbidopa levodopa 1 tablet daily, pramipexole 1 mg daily, lovastatin 40 mg twice daily, sertraline 50 mg daily, rivastigmine 4.5 mg daily CODE STATUS: DNR/DNI per patient's daughter who is the power of assistant attorney general. Review of Systems Review of Systems Narrative Review of Systems: Review of Systems: (Obtained from the patient's daughter) * General: Denies fevers, chills. * HEENT: Denies headache, congestion, or sore throat. * Cardiac: Denies chest pain or palpitations. * Pulmonary: Denies shortness of breath or cough. * GI: 5 days of diarrhea. Denies nausea, vomiting, constipation, melena, or hematochezia. * : Denies dysuria, hematuria, frequency, or urgency. * MSK: Denies pain in the extremities, joints, or myalgias. * Neuro: Denies weakness, numbness, vision changes, or speech difficulty. Exam Vital Signs Temp Pulse Resp BP Pulse Ox O2 Del Method 98.0 F 67 19 136/77 H 96 Room Air 01/01/25 14:19 01/01/25 14:19 01/01/25 14:19 01/01/25 14:19 01/01/25 14:19 01/01/25 14:19 Narrative Exam General: Frail elderly lady. One-word answers. Able to identify name, place, and time. Awake and in no acute distress. Neurologic: GCS 11. Alert and oriented x3, no gross neurological deficit, and patient able to move all 4 extremities. HEENT: Normocephalic, atraumatic, mucous membranes moist. Pupils reactive to light. Heart: Regular rate and rhythm, normal S1 and S2, no murmurs. Lungs: Clear to auscultation bilaterally with no wheezing or crackles. Abdomen: Soft, nondistended, nontender. No guarding or rebound tenderness. Extremities: Grade 3 right upper extremity resting tremor. Grade 1 lipsmacking tremor. No edema. 2+ radial and dorsalis pedis pulses bilaterally. Skin: Warm. Dry. No rash or ecchymoses. Results: Labs 01/01/25 11:10 01/01/25 11:10 Labs: Short CBC 01/01/25 Range/Units 11:10 WBC 7.4 (3.6-11.0) Thou/mm3 Hgb 11.6 L (12.0-16.0) g/dL Hct 36.8 (36.0-46.0) % Plt Count 216 (140-440) Thou/mm3 BMP 01/01/25 11:10 Sodium 141 Potassium 4.2 Chloride 105 Carbon Dioxide 28.0 BUN 11 Creatinine 0.7 Glucose 104 Calcium 8.5 Cardiac Enzymes 01/01/25 Range/Units 11:10 Troponin I < 0.020 (0.0-0.045) ng/mL Liver Function 01/01/25 Range/Units 11:10 Total Bilirubin 0.3 (0.3-1.2) mg/dL AST 16 (0-34) U/L ALT 10 (10-49) U/L Alkaline Phosphatase 72 (46-116) U/L Albumin 4.2 (3.4-4.8) gm/dL Urine 01/01/25 Range/Units 11:07 Urine Color Lt-Yellow (Lt Yel-Yel) Urine Clarity Hazy (Clear/Hazy) Urine pH 7.5 H (5.0-7.0) Ur Specific [place] 1.022 (1.001-1.035) Urine Protein Negative (Neg - Trace) Urine Glucose (UA) Negative (Negative) Quality Measures Quality Measures none Advance care planning discussed with:: child Medications Home Medications and Allergies Home Medications ?Medication ?Instructions ?Recorded ?Confirmed ?Type metformin 500 mg tablet 500 mg PO BIDAC #0 tabs 02/1205/10/24 History (Glucophage) carbidopa 25 mg-levodopa 100 mg 1 tab PO QDAY 05/10/24 05/10/24 History tablet lovastatin 40 mg tablet 40 mg PO BID 05/10/24 History pramipexole 1 mg tablet 1 mg PO BID 05/10/24 5 History rivastigmine tartrate 4.5 mg 4.5 mg PO QDAY 05/10/24 0 05/10/24 History capsule sertraline 50 mg tablet 50 mg PO Q24H 05/10/2405/10 History Held on 05/13/24. Instructions: Please hold until you follow up with your primary care provider Allergies Allergy/AdvReac Type Severity Reaction Status Date / Time codeine Allergy Mild SHAKEY Verified 01/01/25 10:20 Visit Medications Acetaminophen (Acetaminophen 325 Mg Tablet) 650 mg PO Q6H PRN PRN Reason: Fever >101.5 Stop: 01/31/25 15:48 Heparin Sodium (Porcine) (Heparin Sod Inj 5000 Unit/Ml Vial) 5,000 unit SC Q8HR TITA Stop: 01/15/25 21:59 Discontinued Medications Sodium Chloride (Ns) 1,572 mls @ 1,572 mls/hr 30 ml/kg infuse over 60 min (1572 ml) IV .Q1H ONE Stop: 01/01/25 11:51 Last Infusion: 01/01/25 12:14 Dose: Infused Assessment & Plan Plan Summary: 79-year-old female with a past medical history of Parkinson's, depression, hyperlipidemia, hypertension who presented to the ED on 01/01/2025 with altered mental status. Patient visited the ED on 12/27/2024 was found to have a UTI and discharged on ciprofloxacin. Since then she has had worsening of her mental status and was combative the day of presentation. She was found to have a positive fentanyl UTOX in the ED. She was admitted for acute encephalopathy secondary to polypharmacy versus opioids. #Acute encephalopathy secondary to #Fentanyl positive urinalysis versus #Polypharmacy * U tox positive for fentanyl on arrival, evidence of reduced inspiratory effort on exam and chest x-ray * Patient takes medications for Parkinson's and depression, consider polypharmacy * Patient's daughter mentioned diarrhea, may consider dehydration though patient did not appear dry: Mucous membranes moist on exam, patient was not tachycardic, and the patient was normotensive * Ammonia level was normal Plan: * Patient received 0.04 mg IV Narcan Reassessment: * Blood and urine cultures pending * Will monitor for improvement in respiratory effort #Parkinson's * Patient takes carbidopa levodopa, pramipexole, and rivastigmine at home Plan: * Pending med rec, will hold for now in suspicion of polypharmacy #Pre-diabetes? * Patient's daughter mentions that the patient had prediabetes * A1c 5.9 in April 2024 Plan: * Started sliding scale insulin * Follow-up A1c #Hyperlipidemia * Patient takes lovastatin 40 mg twice daily at home * Hypercholesterolemia in May 2023 Plan: * Repeat lipid panel * Pending med rec, will consider restarting home medication #Depression * Patient takes sertraline Plan: * Pending med rec, holding for now in suspicion of polypharmacy Hospital Maintenance: DVT ppx: Open 5000 units subcu every 8 hours Diet: N.p.o., pending swallow screen IV lines: Peripheral IVs Code status: DNR/DNI per patient's daughter who is the power of assistant attorney general Dispo: Telemetry monitoring floor. Blood and urine cultures pending. U tox positive for fentanyl. Given 1 dose of Narcan and will monitor. Patient was seen and discussed with my attending physician Dr. Marsha SCHAEFFER. Mark Abdul DO PGY-1.
[2025-01-01 16:56] LABS: Ammonia 12 uMol/L (11-32)
[2025-01-01] MEDS: SERTRALINE HCL 25 MG TABLET 50 MG PO (21:04)
[2025-01-01] MEDS: PRAMIPEXOLE 0.25 MG TABLET 1 MG PO (21:04)
[2025-01-01] MEDS: HEPARIN SOD INJ 5000 UNIT/ML VIAL SC (21:04)
[2025-01-02] VITALS (10 sets, daily range): BP systolic 124–146; BP diastolic 77–92; PULSE 66–114; RESP 15–95; TEMP 36.1–36.6; O2SAT 94–95; BMI 22.6
[2025-01-02] MEDS: HEPARIN SOD INJ 5000 UNIT/ML VIAL SC ×3 (05:20→21:01)
[2025-01-02 06:23] LABS: Basophils # (Auto) 0.0 Thou/mm3 (0.0-0.2); Basophils % (Auto) 0 % (0-2.5); Eosinophils # (Auto) 0.1 Thou/mm3 (0.0-0.5); Eosinophils % (Auto) 1 % (0-10); Hematocrit 35.9 % (36.0-46.0); Hemoglobin 11.5 g/dL (12.0-16.0); Immature Granulocytes Auto 0.02 Thou/mm3 (0.00-0.00); Lymphocytes # (Auto) 4.3 Thou/mm3 (1.0-4.8); Lymphocytes % (Auto) 52 % (10-50); Mean Corpuscular HGB Conc 32.0 g/dl (31.0-37.0); Mean Corpuscular Hemoglobin 29.3 pg (25.0-35.0); Mean Corpuscular Volume 92 fL (80-100); Monocytes # (Auto) 0.4 Thou/mm3 (0.0-0.8); Monocytes % (Auto) 5 % (0-12); Neutrophils # (Auto) 3.5 Thou/mm3 (1.8-7.7); Neutrophils % (Auto) 42 % (37-80); Nucleated Red Blood Cell # 0.00 Thou/mm3 (0.00-0.00); Nucleated Red Blood Cell % 0 /100 WBC (0); Platelet Count 245 Thou/mm3 (140-440); RDW Standard Deviation 47.8 fL (36.4-46.3); Red Blood Count 3.92 Miln/mm3 (4.00-5.20); White Blood Count 8.3 Thou/mm3 (3.6-11.0)
[2025-01-02 06:53] LABS: Glucose Estimated Average 117 mg/dL (80-131); Hemoglobin A1C 5.7 % Hgb (4.8-6.0)
[2025-01-02 06:59] LABS: Carbon Dioxide 23.7 mMol/L (20.0-31.0); Chloride 104 mMol/L (98-107); Potassium 4.0 mMol/L (3.4-5.1); Sodium 138 mMol/L (136-145)
[2025-01-02 07:00] LABS: Alanine Aminotransferase 9 U/L (10-49); Albumin, Serum 4.0 gm/dL (3.4-4.8); Albumin/Globulin Ratio 3.1 (1.2-2.2); Alkaline Phosphatase 66 U/L (46-116); Anion Gap 10 (7-16); Aspartate Amino Transferase 17 U/L (0-34); BUN/Creatinine Ratio 12 Ratio (12-20); Bilirubin,Total 0.5 mg/dL (0.3-1.2); Blood Urea Nitrogen 7 mg/dL (9-23); Calcium 8.6 mg/dL (8.3-10.6); Calcium (Corrected) 8.6 mg/dL (8.5-10.1); Cardiac Risk Estimate 2.3 RATIO (3.7-5.6); Cholesterol 133 mg/dL (132-200); Creatinine (Component) 0.6 mg/dL (0.6-1.3); Estimated Creatinine Clearance 63.9 mL/min (>60); Globulin 1.3 gm/dL (2.3-3.5); Glucose 82 mg/dL (74-106); HDL Cholesterol 59 mg/dL (40-60); LDL Cholesterol,Calculated 59 mg/dL (0-130); Magnesium 2.0 mg/dL (1.6-2.6); Osmolality,Calculated 272 (275-295); Phosphorous 4.5 mg/dL (2.4-5.1); Total Protein 5.3 gm/dL (5.7-8.2); Triglycerides 77 mg/dL (30-150); eGFR > 60 See Note
[2025-01-02] MEDS: PRAMIPEXOLE 0.25 MG TABLET 1 MG PO (08:55)
[2025-01-02] MEDS: RIVASTIGMINE 4.6 MG/24 HR TOP (08:55)
[2025-01-02] MEDS: CARBIDOPA/LEVODOPA 25/100 MG TABLET 1 TAB PO (08:55)
[2025-01-02] MEDS: VANCOMYCIN/WATER 1250 MG IVPB 250 ML 120 MG IV (10:10)
[2025-01-02] MEDS: THIAMINE INJ 100 MG/ML VIAL 2 ML 500 MG IV (11:14)
--- NOTE | 2025-01-02 12:50 | ESPR_ITS ---
<Statement entered by Steve Larson MD - 01/12/25 08:32> I reviewed above note and agree with findings and plans. I have also personally examined the patient with medicine team and went over assessment and plan with medical team including creative services intern and resident physician. <Statement entered by Ugo Flores MD - 01/02/25 17:12> Patient is seen at bedside. Patient is AO x 4, patient's granddaughter is at bedside who confirmed that initially patient was a bit confused however her mentation has improved. At baseline patient does have slow speech due to advanced Parkinson's. Preliminary blood cultures 1 out of 2 are positive for GPC. Patient was seen and examined by me personally. I have directly supervised and reviewed documentation by the team resident and agree with its findings. ------- Plan of care was discussed with the attending, Dr. Marsha Flores, PGY-2 Documentation for date of: 01/02/25 Subjective Subjective Interval history: * Patient seen and examined at bedside. * Mentation improved compared to yesterday. * Patient was found to have 1 out of 2 vials positive for gram-positive cocci preliminary blood cultures. * Vancomycin started. Exam Vital Signs Temp Pulse Resp BP Pulse Ox O2 Del Method 97.6 F 114 H 21 H 131/79 H 95 Room Air 01/02/25 12:00 01/02/25 12:00 01/02/25 12:00 01/02/25 12:00 01/02/25 12:00 01/02/25 12:00 Narrative Exam General: Frail elderly lady. One-word answers. Able to identify name, place, and time. Awake and in no acute distress. Neurologic: GCS 14. Alert and oriented x3, no gross neurological deficit, and patient able to move all 4 extremities. HEENT: Normocephalic, atraumatic, mucous membranes moist. Pupils reactive to light. Heart: Regular rate and rhythm, normal S1 and S2, no murmurs. Lungs: Clear to auscultation bilaterally with no wheezing or crackles. Abdomen: Soft, nondistended, nontender. No guarding or rebound tenderness. Extremities: Grade 3 right upper extremity resting tremor. Grade 1 lipsmacking tremor. Grade 2 left arm tremor. No edema. 2+ radial and dorsalis pedis pulses bilaterally. Skin: Warm. Dry. No rash or ecchymoses. Objective Labs 01/02/25 05:49 01/02/25 05:49 Labs: Laboratory Results - last 24 hr 01/01/25 01/01/25 01/02/25 11:07 16:10 05:49 WBC 8.3 RBC 3.92 L Hgb 11.5 L Hct 35.9 L MCV 92 MCH 29.3 MCHC 32.0 RDW Std Deviation 47.8 H Plt Count 245 Neut % (Auto) 42 Lymph % (Auto) 52 H Curry % (Auto) 5 Eos % (Auto) 1 Baso % (Auto) 0 Neut # (Auto) 3.5 Lymph # (Auto) 4.3 Curry # (Auto) 0.4 Eos # (Auto) 0.1 Baso # (Auto) 0.0 Immature Gran # (Auto) 0.02 H Absolute Nucleated RBC 0.00 Immature Gran % 0 Nucleated RBC % 0 Sodium 138 Potassium 4.0 Chloride 104 Carbon Dioxide 23.7 Anion Gap 10 BUN 7 L Creatinine 0.6 Estim Creat Clear Calc 63.9 eGFR > 60 BUN/Creatinine Ratio [address] Glu mg/dL 117 Hemoglobin A1c 5.7 Calculated Osmolality 272 L Calcium 8.6 Corrected Calcium 8.6 Phosphorus 4.5 Magnesium 2.0 Total Bilirubin 0.5 AST 17 ALT 9 L Alkaline Phosphatase 66 Ammonia 12 Total Protein 5.3 L Albumin 4.0 Globulin 1.3 L Albumin/Globulin Ratio 3.1 H Triglycerides 77 Cholesterol 133 LDL Cholesterol, Calc 59 HDL Cholesterol 59 Cholesterol/HDL Ratio 2.3 L Urine Opiates Screen Negative Urine Fentanyl Screen Positive A Ur Barbiturates Screen Negative U Amphetamin/Meth Scrn Negative U Benzodiazepines Scrn Negative U Cocaine Metab Screen Negative U Marijuana (THC) Screen Negative Quality Measures Quality Measures none Advance care planning discussed with:: child Assessment & Plan Assessment Current Active Medications: Generic Name Dose Route Start Last Admin Trade Name Freq PRN Reason Stop Dose Admin Acetaminophen 650 mg 01/01/25 15:49 Acetaminophen 325 Mg Tablet PO 01/31/25 15:48 Q6H PRN Fever >101.5 Dextrose 25 ml 01/01/25 16:37 Dextrose 50%-Water Inj 50 Ml Syringe IV 01/31/25 16:36 Q15MIN PRN BG 50-70 responsive npo pt Dextrose 50 ml 01/01/25 16:37 Dextrose 50%-Water Inj 50 Ml Syringe IV 01/31/25 16:36 Q15MIN PRN BG <50 OR BG <70 & pt unresponsive Glucagon 1 mg 01/01/25 16:37 Glucagon Inj 1 Mg Vial IM Q15MIN PRN BG <70, and no IV access Heparin Sodium (Porcine) 5,000 unit 01/01/25 22:00 01/02/25 05:20 Heparin Sod Inj 5000 Unit/Ml Vial SC 01/15/25 21:59 5,000 unit Q8HR TITA Administration Vancomycin/Sodium Chloride 750 mg in 150 mls @ 120 mls/hr 01/02/25 22:00 Vancomycin/Ns 750 Mg Ivpb IV 01/09/25 21:59 BID@1000,2200 [facility] Protocol Insulin Human Lispro 0 unit 01/01/25 17:00 01/02/25 11:33 Insulin Lispro (Admelog) 1 Unit/0.01 Ml Unit SC 01/31/25 16:59 Not Given AC [facility] Protocol Pharmacy Consult 1 each 01/02/25 09:00 Vancomycin Pharmacy To Dose 1 Each Each IV 02/01/25 08:59 QDAY PRN PROTOCOL Sertraline HCl 50 mg 01/01/25 20:30 01/01/25 21:04 Sertraline Hcl 25 Mg Tablet PO 01/31/25 20:29 50 mg HS TITA Administration Plan Summary: 79-year-old female with a past medical history of Parkinson's, depression, hyperlipidemia, hypertension who presented to the ED on 01/01/2025 with altered mental status. Patient visited the ED on 12/27/2024 was found to have a UTI and discharged on ciprofloxacin. Since then she has had worsening of her mental status and was combative the day of presentation. She was found to have a positive fentanyl UTOX in the ED. She was admitted for acute encephalopathy secondary to polypharmacy versus opioids. #Acute encephalopathy secondary to #Fentanyl positive urinalysis versus #Polypharmacy * U tox positive for fentanyl on arrival, evidence of reduced inspiratory effort on exam and chest x-ray * Patient's family is unaware of any fentanyl use by the patient, result may be a false positive * Patient takes medications for Parkinson's and depression, consider polypharmacy * Patient's daughter mentioned diarrhea, may consider dehydration though patient did not appear dry: Mucous membranes moist on exam, patient was not tachycardic, and the patient was normotensive * Ammonia level was normal * Blood cultures showed 1 out of 2 vials positive for GPC's Plan: * Patient received 0.04 mg IV Narcan on initial evaluation by IM team * Started vancomycin 01/02/2025 #Parkinson's * Patient takes carbidopa levodopa, pramipexole, and rivastigmine at home Plan: * Will hold for now in suspicion of polypharmacy #Pre-diabetes (Resolved) * Patient's daughter mentions that the patient had prediabetes * A1c 5.7 Plan: * Started sliding scale insulin #Hyperlipidemia * Patient takes lovastatin 40 mg once daily at home * Hypercholesterolemia in May 2023 * Cholesterol panel negative Plan: * Atorvastatin 10 mg nightly #Depression * Patient takes sertraline Plan: * Restarted home Sertraline Hospital Maintenance: DVT ppx: Open 5000 units subcu every 8 hours Diet: N.p.o., pending swallow screen IV lines: Peripheral IVs Code status: DNR/DNI per patient's daughter who is the power of aquatics lifeguard Dispo: Telemetry monitoring floor. 1/2 blood cultures positive for GPC's, vancomycin started. Patient was seen and discussed with my attending physician Dr. Marsha SCHAEFFER and my senior resident Dr. Mark SCHAEFFER PGY-2. Mark Abdul DO PGY-1.
--- NOTE | 2025-01-02 14:20 | PC.SS ---
Rounding: Pending neuro consult, and cultures
--- NOTE | 2025-01-02 15:37 | PC.SS ---
Patient Nighat Bess is a 79 Year old female admitted for AMS. SS conducted phone contact with the patient?s daughter, Cindi ([phone]); to discuss discharge plan and verify demographic information. Patients daughter reports patient lives at home with her, Cindi reports she is patient's surrogate decision maker. Patient utilizes a Rollator walker to assist with ambulation. Patient need minimal assistance completing all ADL's. PCP is Artur Anderson and pharmacy of choice is [facility]. SS inquired about SNF if PT recommends SNF. Patient's daughter open to SNF. However would like PT to evaluate patient first. At time of discharge patient's daughter will provide transportation. Discharge plan: Home next of kin: Daughter, Cindi Caal
[2025-01-02] MEDS: SERTRALINE HCL 25 MG TABLET 50 MG PO (21:00)
[2025-01-02] MEDS: ATORVASTATIN CALCIUM 10 MG TABLET PO (21:00)
--- NOTE | 2025-01-02 21:43 | ESPR_ITS ---
Documentation for date of: 01/02/25 Subjective Subjective Interval history: Patient was in telemetry today. No new symptoms reported. Feels generally weak. Exam - Neurology Vital Signs Temp Pulse Resp BP Pulse Ox O2 Del Method 96.9 F 82 27 H 144/92 H 95 Room Air 01/02/25 20:00 01/02/25 20:00 01/02/25 20:00 01/02/25 20:00 01/02/25 20:00 01/02/25 20:00 Narrative Exam GENERAL APPEARANCE: Well hydrated, well-nourished in no acute distress. HEENT: Normocephalic, atraumatic, extraocular movements intact. Pupils: Equal reacting to light and accommodation NECK: Supple, no JVD or bruits. CARDIOVASULAR: Heart: S1, S2 heard, regular without S3-S4 or murmur no rubs or gallops. LUNGS/CHEST: Clear to auscultation bilaterally. No rails, rhonchi, or wheezing. Normal inspection. ABDOMEN: Soft, nontender, with normal bowel sounds. No pulsatile masses. No rebound, rigidity, or guarding. Normal inspection and palpation. EXTREMITIES: Normal inspection and palpation. No edema, clubbing or cyanosis. SKIN: Warm and dry without rashes. Normal inspection. MUSCULOSKELETAL: No cervical, thoracic, lumbar or midline bony tenderness. Normal inspection. NEURO: Alert, awake and oriented x2. Cranial nerves: II through XII grossly intact. Speech and language: Hypophonia. Motor system: Tone and bulk: Normal: Strength: Moves all 4 extremities; No pronator drift noted. Deep tendon reflexes: 2+ bilaterally symmetrical. Plantar reflex: Downgoing bilaterally. Sensory system: Intact to pinprick sensation bilaterally. She does have resting tremors, bradykinesia, masked facial expression. Gait could not be tested as she is generally weak PSYCHIATRIC: Flat affect Objective Labs 01/02/25 05:49 01/02/25 05:49 Labs: Laboratory Results - last 24 hr 01/02/25 05:49 WBC 8.3 RBC 3.92 L Hgb 11.5 L Hct 35.9 L MCV 92 MCH 29.3 MCHC 32.0 RDW Std Deviation 47.8 H Plt Count 245 Neut % (Auto) 42 Lymph % (Auto) 52 H Ma[place] % (Auto) 5 Eos % (Auto) 1 Baso % (Auto) 0 Neut # (Auto) 3.5 Lymph # (Auto) 4.3 [place]ick # (Auto) 0.4 Eos # (Auto) 0.1 Baso # (Auto) 0.0 Immature Gran # (Auto) 0.02 H Absolute Nucleated RBC 0.00 Immature Gran % 0 Nucleated RBC % 0 Sodium 138 Potassium 4.0 Chloride 104 Carbon Dioxide 23.7 Anion Gap 10 BUN 7 L Creatinine 0.6 Estim Creat Clear Calc 63.9 eGFR > 60 BUN/Creatinine Ratio [address] Glu mg/dL 117 Hemoglobin A1c 5.7 Calculated Osmolality 272 L Calcium 8.6 Corrected Calcium 8.6 Phosphorus 4.5 Magnesium 2.0 Total Bilirubin 0.5 AST 17 ALT 9 L Alkaline Phosphatase 66 Total Protein 5.3 L Albumin 4.0 Globulin 1.3 L Albumin/Globulin Ratio 3.1 H Triglycerides 77 Cholesterol 133 LDL Cholesterol, Calc 59 HDL Cholesterol 59 Cholesterol/HDL Ratio 2.3 L Assessment & Plan Assessment and plan (1) AMS (altered mental status): Status: Acute Assessment and plan: Improving, close to baseline (2) Parkinsons disease: Status: Chronic Assessment and plan: Continue with her home dose of medications including Sinemet, pramipexole and rivastigmine, consider physical therapy evaluation and she might benefit from inpatient rehab for a week or 2
[2025-01-02] MEDS: VANCOMYCIN/NS 750 MG IVPB 750 MG/150 ML BAG 120 MG IV (21:51)
[2025-01-03] VITALS (12 sets, daily range): BP systolic 141–158; BP diastolic 73–98; PULSE 70–113; RESP 18–247; TEMP 36.1–36.3; O2SAT 94–95; BMI 22.7
[2025-01-03] MEDS: HEPARIN SOD INJ 5000 UNIT/ML VIAL SC ×3 (05:04→21:11)
[2025-01-03 05:21] LABS: Basophils # (Auto) 0.0 Thou/mm3 (0.0-0.2); Basophils % (Auto) 1 % (0-2.5); Eosinophils # (Auto) 0.1 Thou/mm3 (0.0-0.5); Eosinophils % (Auto) 1 % (0-10); Hematocrit 36.4 % (36.0-46.0); Hemoglobin 11.7 g/dL (12.0-16.0); Immature Granulocytes Auto 0.01 Thou/mm3 (0.00-0.00); Lymphocytes # (Auto) 3.7 Thou/mm3 (1.0-4.8); Lymphocytes % (Auto) 51 % (10-50); Mean Corpuscular HGB Conc 32.1 g/dl (31.0-37.0); Mean Corpuscular Hemoglobin 28.7 pg (25.0-35.0); Mean Corpuscular Volume 89 fL (80-100); Monocytes # (Auto) 0.4 Thou/mm3 (0.0-0.8); Monocytes % (Auto) 5 % (0-12); Neutrophils # (Auto) 3.1 Thou/mm3 (1.8-7.7); Neutrophils % (Auto) 43 % (37-80); Nucleated Red Blood Cell # 0.00 Thou/mm3 (0.00-0.00); Nucleated Red Blood Cell % 0 /100 WBC (0); Platelet Count 212 Thou/mm3 (140-440); RDW Standard Deviation 45.3 fL (36.4-46.3); Red Blood Count 4.08 Miln/mm3 (4.00-5.20); White Blood Count 7.2 Thou/mm3 (3.6-11.0)
[2025-01-03 06:18] LABS: Alanine Aminotransferase 9 U/L (10-49); Albumin, Serum 4.0 gm/dL (3.4-4.8); Albumin/Globulin Ratio 2.7 (1.2-2.2); Alkaline Phosphatase 72 U/L (46-116); Anion Gap 10 (7-16); Aspartate Amino Transferase 16 U/L (0-34); BUN/Creatinine Ratio 13 Ratio (12-20); Bilirubin,Total 0.4 mg/dL (0.3-1.2); Blood Urea Nitrogen 9 mg/dL (9-23); Calcium 8.4 mg/dL (8.3-10.6); Calcium (Corrected) 8.4 mg/dL (8.5-10.1); Carbon Dioxide 22.7 mMol/L (20.0-31.0); Chloride 105 mMol/L (98-107); Creatinine (Component) 0.7 mg/dL (0.6-1.3); Estimated Creatinine Clearance 54.8 mL/min (>60); Globulin 1.5 gm/dL (2.3-3.5); Glucose 101 mg/dL (74-106); Osmolality,Calculated 274 (275-295); Potassium 3.9 mMol/L (3.4-5.1); Sodium 138 mMol/L (136-145); Total Protein 5.5 gm/dL (5.7-8.2); eGFR > 60 See Note
[2025-01-03 07:38] LABS: Vancomycin,Trough 14.8 mcg/mL (5.0-10.0)
[2025-01-03] MEDS: CARBIDOPA/LEVODOPA 25/100 MG TABLET 1 TAB PO (08:08)
[2025-01-03] MEDS: RIVASTIGMINE 4.6 MG/24 HR TOP (08:08)
[2025-01-03] MEDS: PRAMIPEXOLE 0.25 MG TABLET 1 MG PO ×2 (08:08→20:16)
--- NOTE | 2025-01-03 10:40 | ESPR_ITS ---
<Statement entered by Steve Larson MD - 01/12/25 08:33> I reviewed above note and agree with findings and plans. I have also personally examined the patient with medicine team and went over assessment and plan with medical team including summer intern and resident physician. <Statement entered by Ugo Flores MD - 01/03/25 16:28> Pt is seen at bedside, A&O x4. Pt is pending PT evaluation per neurology recommendation as she would benefit from acute rehab. However pt states she would prefer to go home with home health PT however if necessary is agreeable to acute rehab. Patient was seen and examined by me personally. I have directly supervised and reviewed documentation by the team resident and agree with its findings. ------- Plan of care was discussed with the attending, Dr. Marsha Flores, PGY-2 Documentation for date of: 01/03/25 Subjective Subjective Interval history: * Patient seen and examined at bedside. * Restarted home pramipexole, rivastigmine, and carbidopa levodopa. * Pending PT evaluation. * 1/2 blood cultures were positive for gram-positive cocci, stopped vancomycin. Exam Vital Signs Temp Pulse Resp BP Pulse Ox O2 Del Method 97.0 F 75 20 148/87 H 95 Room Air 01/03/25 08:00 01/03/25 08:06 01/03/25 08:06 01/03/25 08:00 01/03/25 08:00 01/03/25 08:00 Narrative Exam General: Frail elderly lady. Able to identify name, place, and time. Awake and in no acute distress. Neurologic: GCS 15. Alert and oriented x3, no gross neurological deficit, and patient able to move all 4 extremities. HEENT: Normocephalic, atraumatic, mucous membranes moist. Pupils reactive to light. Heart: Regular rate and rhythm, normal S1 and S2, no murmurs. Lungs: Clear to auscultation bilaterally with no wheezing or crackles. Abdomen: Soft, nondistended, nontender. No guarding or rebound tenderness. Extremities: Grade 3 right upper extremity resting tremor. Grade 1 lipsmacking tremor. Grade 2 left arm tremor. No edema. 2+ radial and dorsalis pedis pulses bilaterally. Skin: Warm. Dry. No rash or ecchymoses. Objective Labs 01/03/25 04:33 01/03/25 04:33 Labs: Laboratory Results - last 24 hr 01/03/25 04:33 WBC 7.2 RBC 4.08 Hgb 11.7 L Hct 36.4 MCV 89 MCH 28.7 MCHC 32.1 RDW Std Deviation 45.3 Plt Count 212 D Neut % (Auto) 43 Lymph % (Auto) 51 H [place] % (Auto) 5 Eos % (Auto) 1 Baso % (Auto) 1 Neut # (Auto) 3.1 Lymph # (Auto) 3.7 [place] # (Auto) 0.4 Eos # (Auto) 0.1 Baso # (Auto) 0.0 Immature Gran # (Auto) 0.01 H Absolute Nucleated RBC 0.00 Immature Gran % 0 Nucleated RBC % 0 Sodium 138 Potassium 3.9 Chloride 105 Carbon Dioxide 22.7 Anion Gap 10 BUN 9 Creatinine 0.7 Estim Creat Clear Calc 54.8 L eGFR > 60 BUN/Creatinine Ratio 13 Glucose 101 Calculated Osmolality 274 L Calcium 8.4 Corrected Calcium 8.4 L Total Bilirubin 0.4 AST 16 ALT 9 L Alkaline Phosphatase 72 Total Protein 5.5 L Albumin 4.0 Globulin 1.5 L Albumin/Globulin Ratio 2.7 H Vancomycin Trough 14.8 H Quality Measures Quality Measures none Advance care planning discussed with:: patient and child Assessment & Plan Assessment Current Active Medications: Generic Name Dose Route Start Last Admin Trade Name Freq PRN Reason Stop Dose Admin Acetaminophen 650 mg 01/01/25 15:49 Acetaminophen 325 Mg Tablet PO 01/31/25 15:48 Q6H PRN Fever >101.5 Atorvastatin Calcium 10 mg 01/02/25 21:00 01/02/25 21:00 Atorvastatin Calcium 10 Mg Tablet PO 02/01/25 20:59 10 mg HS TITA Administration Protocol Carbidopa/Levodopa 1 tab 01/03/25 09:00 01/03/25 08:08 Carbidopa/Levodopa 25/100 Mg Tablet PO 02/02/25 08:59 1 tab DAILY TITA Administration Dextrose 25 ml 01/01/25 16:37 Dextrose 50%-Water Inj 50 Ml Syringe IV 01/31/25 16:36 Q15MIN PRN BG 50-70 responsive npo pt Dextrose 50 ml 01/01/25 16:37 Dextrose 50%-Water Inj 50 Ml Syringe IV 01/31/25 16:36 Q15MIN PRN BG <50 OR BG <70 & pt unresponsive Glucagon 1 mg 01/01/25 16:37 Glucagon Inj 1 Mg Vial IM Q15MIN PRN BG <70, and no IV access Heparin Sodium (Porcine) 5,000 unit 01/01/25 22:00 01/03/25 05:04 Heparin Sod Inj 5000 Unit/Ml Vial SC 01/15/25 21:59 5,000 unit Q8HR TITA Administration Insulin Human Lispro 0 unit 01/01/25 17:00 01/03/25 08:02 Insulin Lispro (Admelog) 1 Unit/0.01 Ml Unit SC 01/31/25 16:59 Not Given AC [facility] Protocol Pramipexole Dihydrochloride 1 mg 01/03/25 09:00 01/03/25 08:08 Pramipexole 0.25 Mg Tablet PO 02/02/25 08:59 1 mg BID TITA Administration Rivastigmine 4.6 mg 01/03/25 09:00 01/03/25 08:08 Rivastigmine 4.6 Mg/24 Hr Patch.Td24 (Non-Formulary) TOP 02/02/25 08:59 4.6 mg QDAY TITA Administration Sertraline HCl 50 mg 01/01/25 20:30 01/02/25 21:00 Sertraline Hcl 25 Mg Tablet PO 01/31/25 20:29 50 mg HS TITA Administration Plan Summary: 79-year-old female with a past medical history of Parkinson's, depression, hyperlipidemia, hypertension who presented to the ED on 01/01/2025 with altered mental status. Patient visited the ED on 12/27/2024 was found to have a UTI and discharged on ciprofloxacin. Since then she has had worsening of her mental status and was combative the day of presentation. She was found to have a positive fentanyl UTOX in the ED. She was admitted for acute encephalopathy secondary to polypharmacy versus opioids. #Acute encephalopathy secondary to #Fentanyl positive urinalysis versus #Polypharmacy * U tox positive for fentanyl on arrival, evidence of reduced inspiratory effort on exam and chest x-ray * Patient's family is unaware of any fentanyl use by the patient, result may be a false positive * Patient takes medications for Parkinson's and depression, consider polypharmacy * Patient's daughter mentioned diarrhea, may consider dehydration though patient did not appear dry: Mucous membranes moist on exam, patient was not tachycardic, and the patient was normotensive * Ammonia level was normal * No reinforceable cause of acute altered mental status at this time Plan * Patient received 0.04 mg IV Narcan on initial evaluation by IM team * Pending physical therapy consult * Patient prefers to be discharged home rather than SNF #Parkinson's * Patient takes carbidopa levodopa, pramipexole, and rivastigmine at home Plan: * Restarted: Pramipexole 1 mg twice daily, rivastigmine 4.6 mg daily patch, carbidopa levodopa 25-100 daily #Hyperlipidemia * Patient takes lovastatin 40 mg once daily at home * Hypercholesterolemia in May 2023 * Cholesterol panel negative Plan: * Atorvastatin 10 mg nightly #Depression * Patient takes sertraline Plan: * Restarted home Sertraline # 1/2 positive GPC bacteremia (Resolved) * Blood cultures showed 1 out of 2 vials positive for GPC's * Given that the patient is afebrile, has no WBC count, and has an improving mentation, this may reinforce contamination Plan: * Discontinued vancomycin #Pre-diabetes (Resolved) * Patient's daughter mentions that the patient had prediabetes * A1c 5.7 Plan: * Continue sliding scale insulin Hospital Maintenance: DVT ppx: Open 5000 units subcu every 8 hours Diet: Regular diet IV lines: Peripheral IVs Code status: DNR/DNI per patient's daughter who is the power of ice cream vault worker Dispo: Telemetry monitoring floor. 1/2 blood cultures positive for GPC's, vancomycin discontinued. Pending PT evaluation. Restarted home Parkinson's medications. Patient was seen and discussed with my attending physician Dr. Marsha SCHAEFFER and my senior resident Dr. Mark SCHAEFFER PGY-2. Mark Abdul DO PGY-1.
--- NOTE | 2025-01-03 16:34 | PC.NURSE ---
pt. trying to get out of bed,transferred pt. to [id number] with all personal belongings.Bed alarm on,personal belongings withi reach.
--- NOTE | 2025-01-03 16:41 | PC.SS ---
Discharge round: Pending PT, 01/04/25. HH vs. Rehab.
[2025-01-03] MEDS: ATORVASTATIN CALCIUM 10 MG TABLET PO (20:17)
[2025-01-03] MEDS: SERTRALINE HCL 25 MG TABLET 50 MG PO (20:17)
--- NOTE | 2025-01-03 23:52 | VVPN_ITS ---
Telemedicine visit statement This visit was conducted with the use of interactive audio and video telecommunications system that permits real time communication between the patient and the provider. Patient's verbal consent for virtual visit was obtained on 01/03/25 at 2352. Documentation for date of: 01/03/25 Virtual exam Vital Signs Temp Pulse Resp BP Pulse Ox O2 Del Method 97.0 F 70 19 158/98 H 95 Room Air 01/03/25 20:00 01/03/25 21:09 01/03/25 21:09 01/03/25 20:00 01/03/25 20:00 01/03/25 20:00 Objective Labs 01/03/25 04:33 01/03/25 04:33 Labs: Laboratory Results - last 24 hr 01/03/25 04:33 WBC 7.2 RBC 4.08 Hgb 11.7 L Hct 36.4 MCV 89 MCH 28.7 MCHC 32.1 RDW Std Deviation 45.3 Plt Count 212 D Neut % (Auto) 43 Lymph % (Auto) 51 H [place] % (Auto) 5 Eos % (Auto) 1 Baso % (Auto) 1 Neut # (Auto) 3.1 Lymph # (Auto) 3.7 [place] # (Auto) 0.4 Eos # (Auto) 0.1 Baso # (Auto) 0.0 Immature Gran # (Auto) 0.01 H Absolute Nucleated RBC 0.00 Immature Gran % 0 Nucleated RBC % 0 Sodium 138 Potassium 3.9 Chloride 105 Carbon Dioxide 22.7 Anion Gap 10 BUN 9 Creatinine 0.7 Estim Creat Clear Calc 54.8 L eGFR > 60 BUN/Creatinine Ratio 13 Glucose 101 Calculated Osmolality 274 L Calcium 8.4 Corrected Calcium 8.4 L Total Bilirubin 0.4 AST 16 ALT 9 L Alkaline Phosphatase 72 Total Protein 5.5 L Albumin 4.0 Globulin 1.5 L Albumin/Globulin Ratio 2.7 H Vancomycin Trough 14.8 H
[2025-01-04] VITALS (9 sets, daily range): BP systolic 122–153; BP diastolic 85–95; PULSE 74–110; RESP 17–97; TEMP 36.1–36.8; O2SAT 95–97; BMI 22.7; BMI 12.0
[2025-01-04] MEDS: HEPARIN SOD INJ 5000 UNIT/ML VIAL SC ×2 (05:38→14:05)
[2025-01-04 06:10] LABS: Basophils # (Auto) 0.0 Thou/mm3 (0.0-0.2); Basophils % (Auto) 0 % (0-2.5); Eosinophils # (Auto) 0.1 Thou/mm3 (0.0-0.5); Eosinophils % (Auto) 1 % (0-10); Hematocrit 36.5 % (36.0-46.0); Hemoglobin 12.0 g/dL (12.0-16.0); Immature Granulocytes Auto 0.01 Thou/mm3 (0.00-0.00); Lymphocytes # (Auto) 4.4 Thou/mm3 (1.0-4.8); Lymphocytes % (Auto) 54 % (10-50); Mean Corpuscular HGB Conc 32.9 g/dl (31.0-37.0); Mean Corpuscular Hemoglobin 29.4 pg (25.0-35.0); Mean Corpuscular Volume 90 fL (80-100); Monocytes # (Auto) 0.5 Thou/mm3 (0.0-0.8); Monocytes % (Auto) 6 % (0-12); Neutrophils # (Auto) 3.1 Thou/mm3 (1.8-7.7); Neutrophils % (Auto) 38 % (37-80); Nucleated Red Blood Cell # 0.00 Thou/mm3 (0.00-0.00); Nucleated Red Blood Cell % 0 /100 WBC (0); Platelet Count 198 Thou/mm3 (140-440); RDW Standard Deviation 45.6 fL (36.4-46.3); Red Blood Count 4.08 Miln/mm3 (4.00-5.20); White Blood Count 8.0 Thou/mm3 (3.6-11.0)
[2025-01-04 06:44] LABS: Alanine Aminotransferase 10 U/L (10-49); Albumin, Serum 4.2 gm/dL (3.4-4.8); Albumin/Globulin Ratio 3.2 (1.2-2.2); Alkaline Phosphatase 71 U/L (46-116); Anion Gap 10 (7-16); Aspartate Amino Transferase 18 U/L (0-34); BUN/Creatinine Ratio 13 Ratio (12-20); Bilirubin,Total 0.4 mg/dL (0.3-1.2); Blood Urea Nitrogen 9 mg/dL (9-23); Calcium 8.5 mg/dL (8.3-10.6); Calcium (Corrected) 8.5 mg/dL (8.5-10.1); Carbon Dioxide 27.2 mMol/L (20.0-31.0); Chloride 103 mMol/L (98-107); Creatinine (Component) 0.7 mg/dL (0.6-1.3); Estimated Creatinine Clearance 54.8 mL/min (>60); Globulin 1.3 gm/dL (2.3-3.5); Glucose 94 mg/dL (74-106); Osmolality,Calculated 278 (275-295); Potassium 3.4 mMol/L (3.4-5.1); Sodium 140 mMol/L (136-145); Total Protein 5.5 gm/dL (5.7-8.2); eGFR > 60 See Note
--- NOTE | 2025-01-04 07:34 | PD.RESPRO ---
Documentation for date of: 01/04/25 Exam Vital Signs Temp Pulse Resp BP Pulse Ox O2 Del Method 98.2 F 86 19 135/87 H 95 Room Air 01/04/25 04:00 01/04/25 04:00 01/04/25 04:00 01/04/25 04:00 01/04/25 04:00 01/04/25 04:00 Objective Labs 01/04/25 05:25 01/04/25 05:25 Labs: Laboratory Results - last 24 hr 01/03/25 01/04/25 04:33 05:25 WBC 8.0 RBC 4.08 Hgb 12.0 Hct 36.5 MCV 90 MCH 29.4 MCHC 32.9 RDW Std Deviation 45.6 Plt Count 198 Neut % (Auto) 38 Lymph % (Auto) 54 H [place] % (Auto) 6 Eos % (Auto) 1 Baso % (Auto) 0 Neut # (Auto) 3.1 Lymph # (Auto) 4.4 [place] # (Auto) 0.5 Eos # (Auto) 0.1 Baso # (Auto) 0.0 Immature Gran # (Auto) 0.01 H Absolute Nucleated RBC 0.00 Immature Gran % 0 Nucleated RBC % 0 Sodium 140 Potassium 3.4 D Chloride 103 Carbon Dioxide 27.2 Anion Gap 10 BUN 9 Creatinine 0.7 Estim Creat Clear Calc 54.8 L eGFR > 60 BUN/Creatinine Ratio 13 Glucose 94 Calculated Osmolality 278 Calcium 8.5 Corrected Calcium 8.5 Total Bilirubin 0.4 AST 18 ALT 10 Alkaline Phosphatase 71 Total Protein 5.5 L Albumin 4.2 Globulin 1.3 L Albumin/Globulin Ratio 3.2 H Vancomycin Trough 14.8 H Quality Measures Quality Measures none Assessment & Plan Assessment Current Active Medications: Generic Name Dose Route Start Last Admin Trade Name Freq PRN Reason Stop Dose Admin Acetaminophen 650 mg 01/01/25 15:49 Acetaminophen 325 Mg Tablet PO 01/31/25 15:48 Q6H PRN Fever >101.5 Atorvastatin Calcium 10 mg 01/02/25 21:00 01/03/25 20:17 Atorvastatin Calcium 10 Mg Tablet PO 02/01/25 20:59 10 mg HS TITA Administration Protocol Carbidopa/Levodopa 1 tab 01/03/25 09:00 01/03/25 08:08 Carbidopa/Levodopa 25/100 Mg Tablet PO 02/02/25 08:59 1 tab DAILY TITA Administration Dextrose 25 ml 01/01/25 16:37 Dextrose 50%-Water Inj 50 Ml Syringe IV 01/31/25 16:36 Q15MIN PRN BG 50-70 responsive npo pt Dextrose 50 ml 01/01/25 16:37 Dextrose 50%-Water Inj 50 Ml Syringe IV 01/31/25 16:36 Q15MIN PRN BG <50 OR BG <70 & pt unresponsive Glucagon 1 mg 01/01/25 16:37 Glucagon Inj 1 Mg Vial IM Q15MIN PRN BG <70, and no IV access Heparin Sodium (Porcine) 5,000 unit 01/01/25 22:00 01/04/25 05:38 Heparin Sod Inj 5000 Unit/Ml Vial SC 01/15/25 21:59 5,000 unit Q8HR TITA Administration Insulin Human Lispro 0 unit 01/01/25 17:00 01/03/25 17:30 Insulin Lispro (Admelog) 1 Unit/0.01 Ml Unit SC 01/31/25 16:59 Not Given AC [facility] Protocol Pramipexole Dihydrochloride 1 mg 01/03/25 09:00 01/03/25 20:16 Pramipexole 0.25 Mg Tablet PO 02/02/25 08:59 1 mg BID TITA Administration Rivastigmine 4.6 mg 01/03/25 09:00 01/03/25 08:08 Rivastigmine 4.6 Mg/24 Hr Patch.Td24 (Non-Formulary) TOP 02/02/25 08:59 4.6 mg QDAY TITA Administration Sertraline HCl 50 mg 01/01/25 20:30 01/03/25 20:17 Sertraline Hcl 25 Mg Tablet PO 01/31/25 20:29 50 mg HS TITA Administration
[2025-01-04] MEDS: PRAMIPEXOLE 0.25 MG TABLET 1 MG PO (08:05)
[2025-01-04] MEDS: CARBIDOPA/LEVODOPA 25/100 MG TABLET 1 TAB PO (08:05)
[2025-01-04] MEDS: RIVASTIGMINE 4.6 MG/24 HR TOP (08:06)
--- NOTE | 2025-01-04 11:05 | ESDS_ITS ---
<Statement entered by Steve Larson MD - 01/12/25 08:39> I reviewed above note and agree with findings and plans. I have also personally examined the patient with medicine team and went over assessment and plan with medical team including music industry intern and resident physician. Planned Discharge Date 01/04/25 DS: Providers Provider Date of admission: 01/01/25 15:49 Primary care physician: Artur Anderson MD Admitting Provider: Steve Larson MD Attending Provider on Admission: Steve Larson MD Consults: 01/02/25 10:30 Consult to Neurology / Tele-Neurology Routine Comment: Consulting Provider: Delbert Heredia 01/03/25 07:26 Referral Physical Therapy Routine Comment: Physician Instructions: Attending Provider on DC: Steve Larson MD Discharging Provider: Mark Abdul DO DS: Diagnosis Discharge Diagnosis (1) Parkinsons disease: Status: Chronic Problem List Completed Was Problem List Reviewed/Reconciled?: Yes Hospital Course Hospital Course Hospital course: Hospital Course: 79-year-old female with a past medical history of Parkinson's, depression, hyperlipidemia, hypertension who presented to the ED on 01/01/2025 with altered mental status. Patient visited the ED on 12/27/2024 was found to have a UTI and discharged on ciprofloxacin. Since then she has had worsening confusion and was combative the day of presentation. She was found to have a positive fentanyl UTOX in the ED. She was admitted for acute encephalopathy secondary to polypharmacy versus opioids. Patient's blood cultures were positive for 1 out of 2 vials for GPCs. She was treated with vancomycin until the second bottle came back negative, which likely reflected contamination. The patient's primary caregiver, the patient's daughter and grand daughter denied the use of any opioids by the patient and constantly supervises the patient and suggested UTOX for fentanyl was likely contamination. During hospitalization pt's labs remained stable, however her mentation continued waxing and waning likely secondary to hospital acquired delirium as well as worsening dementia. The patient was seen by a neurologist and physical therapy who recommended acute rehab for short term physical therapy. The patient's home medications for Parkinson's were restarted during her hospital stay and the patient is stable for discharge to acute rehab. Problem List: #Acute encephalopathy secondary to #Fentanyl positive urinalysis versus #Polypharmacy #Parkinson's #Hyperlipidemia #Depression # 1/2 positive GPC bacteremia (Resolved) #Pre-diabetes (Resolved) Discharge Instructions: * Stop taking your ciprofloxacin * Take your lovastatin 40 mg nightly * Continue taking all other home medications as prescribed: Carbidopa-levodopa 25-100 mg daily. Pramipexole 1 mg tablet twice a day. Rivastigmine 4.5 mg daily. Sertraline 50 mg daily. * Follow-up with PCP within 1-2 weeks of discharge * If you do not have a PCP, then you can follow-up at the [facility] * Return to the emergency room if symptoms worsen The patient was seen and discussed with my attending physician Dr. Marsha SCHAEFFER and my senior resident Dr. Mark SCHAEFFER PGY-2. Mark Abdul DO PGY-1 Time Spent with Patient Time attestation: Total time spent providing and/or coordinating discharge services: More than 50% Time spent: Greater than 30 minutes Exam Vital Signs Temp Pulse Resp BP Pulse Ox O2 Del Method 96.9 F 77 17 148/89 H 96 Room Air 01/04/25 08:00 01/04/25 08:00 01/04/25 08:00 01/04/25 08:00 01/04/25 08:00 01/04/25 08:00 Narrative Exam General: Frail elderly lady. Able to identify name, place, and time. Awake and in no acute distress. Neurologic: GCS 15. Alert and oriented x3, no gross neurological deficit, and patient able to move all 4 extremities. HEENT: Normocephalic, atraumatic, mucous membranes moist. Pupils reactive to light. Heart: Regular rate and rhythm, normal S1 and S2, no murmurs. Lungs: Clear to auscultation bilaterally with no wheezing or crackles. Abdomen: Soft, nondistended, nontender. No guarding or rebound tenderness. Extremities: Grade 3 right upper extremity resting tremor. Grade 1 lipsmacking tremor. Grade 2 left arm tremor. No edema. 2+ radial and dorsalis pedis pulses bilaterally. Skin: Warm. Dry. No rash or ecchymoses. Discharge Plan Plan Patient Disposition: Xfer Skilled Nsg Fac (SNF) Patient condition on transfer: Stable Care Plan Goals: Instructions: * Stop taking your ciprofloxacin * Take your lovastatin 40 mg nightly * Continue taking all other home medications as prescribed: Carbidopa-levodopa 25-100 mg daily. Pramipexole 1 mg tablet twice a day. Rivastigmine 4.5 mg daily. Sertraline 50 mg daily. * Follow-up with PCP within 1-2 weeks of discharge * If you do not have a PCP, then you can follow-up at the [facility] * Return to the emergency room if symptoms worsen Prescriptions/Referrals Prescriptions/Med Rec: Continued rivastigmine tartrate 4.5 mg capsule 4.5 mg PO QDAY carbidopa-levodopa 25-100 mg tablet 1 tab PO QDAY Patient Comments: TAKE 1 TABLET BY MOUTH DAILY sertraline 50 mg tablet 50 mg PO Q24H pramipexole 1 mg tablet 1 mg PO BID Patient Comments: TAKE 1 TABLET BY MOUTH TWICE DAILY Changed lovastatin 40 mg tablet 40 mg PO HS 30 Days Qty: 30 0RF Patient Comments: TAKE 1 TABLET BY MOUTH EVERY DAY Discontinued ciprofloxacin HCl [Cipro] 500 mg tablet 500 mg PO BID Qty: 10 0RF Referrals: Artur Anderson MD [Primary Care Provider, Internal Medicine] Patient/Caregiver Discharge Instructions Print Language: Cymro Stand Alone Forms: Debbie Award Info., Patient Portal Info Letter Discharge Order Discharge Orders: Discharge (Routine); Ordered 01/04/25 Ordered By: Mark Abdul Quality Discharge Quality Measures none
--- NOTE | 2025-01-04 11:35 | PC.SS ---
Addendum entered by Marita Daniel 01/04/25 14:55: [facility] accepted. Level 2 PASRR still not cleared by state. [employer] provided auth to facility. Pending Level 2 closure. SS already called state to follow up on clearance Addendum entered by Marita Daniel 01/04/25 11:54: [facility] accepted patient. PASRR completed. Level 2 clearance needed. Original Note: Follow up note: SS spoke to patient's daughter, Cindi, who confirmed she wants patient to d/c to SNF. Her preference is [facility] as patient has been prior. PT eval note pending. Patient was max assist. Patient will need prior auth. D/c for today.
--- NOTE | 2025-01-04 19:55 | PD.RESPRO ---
Documentation for date of: 01/04/25 Subjective Subjective Interval history: Patient seen and examined at bedside. Primary team restarted home pramipexole, rivastigmine, and carbidopa levodopa. Cleared by PT ana maria, recommendations for DC to SNF. Antibiotics stopped by primary team. She is back to her baseline now. Exam Vital Signs Temp Pulse Resp BP Pulse Ox O2 Del Method 97.9 F 80 20 138/89 H 97 Room Air 01/04/25 18:00 01/04/25 18:00 01/04/25 18:00 01/04/25 18:00 01/04/25 18:00 01/04/25 18:00 Narrative Exam General: Frail elderly lady. Able to identify name, place, and time. Awake and in no acute distress. Neurologic: GCS 15. Alert and oriented x3, no gross neurological deficit, and patient able to move all 4 extremities. HEENT: Normocephalic, atraumatic, mucous membranes moist. Pupils reactive to light. Heart: Regular rate and rhythm, normal S1 and S2, no murmurs. Lungs: Clear to auscultation bilaterally with no wheezing or crackles. Abdomen: Soft, nondistended, nontender. No guarding or rebound tenderness. Extremities: Grade 3 right upper extremity resting tremor. Grade 1 lipsmacking tremor. Grade 2 left arm tremor. No edema. 2+ radial and dorsalis pedis pulses bilaterally. Skin: Warm. Dry. No rash or ecchymoses. Objective Labs 01/04/25 05:25 01/04/25 05:25 Labs: Laboratory Results - last 24 hr 01/04/25 05:25 WBC 8.0 RBC 4.08 Hgb 12.0 Hct 36.5 MCV 90 MCH 29.4 MCHC 32.9 RDW Std Deviation 45.6 Plt Count 198 Neut % (Auto) 38 Lymph % (Auto) 54 H [place] % (Auto) 6 Eos % (Auto) 1 Baso % (Auto) 0 Neut # (Auto) 3.1 Lymph # (Auto) 4.4 [place] # (Auto) 0.5 Eos # (Auto) 0.1 Baso # (Auto) 0.0 Immature Gran # (Auto) 0.01 H Absolute Nucleated RBC 0.00 Immature Gran % 0 Nucleated RBC % 0 Sodium 140 Potassium 3.4 D Chloride 103 Carbon Dioxide 27.2 Anion Gap 10 BUN 9 Creatinine 0.7 Estim Creat Clear Calc 54.8 L eGFR > 60 BUN/Creatinine Ratio 13 Glucose 94 Calculated Osmolality 278 Calcium 8.5 Corrected Calcium 8.5 Total Bilirubin 0.4 AST 18 ALT 10 Alkaline Phosphatase 71 Total Protein 5.5 L Albumin 4.2 Globulin 1.3 L Albumin/Globulin Ratio 3.2 H Quality Measures Quality Measures none Advance care planning discussed with:: patient Assessment & Plan Plan AMS (altered mental status) Recommendations: Improving, close to baseline Continue to monitor on discharge, will benefit from outpatient rehab Parkinsons disease, chronic Recommendations: Appreciate primary team restarting home medications including Sinemet, pramipexole and rivastigmine Follow physical therapy recommendations at facility Thank you for the consult. Neurology will continue to follow the patient outpatient Plan of care discussed with attending Neurologist Bertin Alex M.D. PGY3 Disclaimer: Minor errors in lounge car attendant may be present as this note was dictated using voice recognition software. Attending Provider Attestation/Addendum I have reviewed the patient's chart independently and I agreed with the resident's findings, assessment and plan of care. Patient's mental status has significantly improved to baseline. Continue with the current management, follow-up with outpatient physical therapy. Patient family is supposed to make an appointment with my office for follow-up.
[2025-01-11 07:08] LABS: Vitamin B1 (Thiamine)* 289 nmol/L (8-30)
== END 2025-01-04 17:35 | disposition skilled nursing facility (03) | DRG 92 ==
LOC: SERX 16:06 → SERHOLD 17:00 → S2NX 18:54
PROVIDERS: Admitting Provider Internal Medicine; Emergency Provider Family Medicine; PCP Internal Medicine; Visit Provider Internal Medicine
DX: G92.8 Other toxic encephalopathy (principal); F05 Delirium due to known physiological condition; R78.81 Bacteremia; G20.A1 Parkinson's disease without dyskinesia, without mention of fluctuations; I10 Essential (primary) hypertension; F32.A Depression, unspecified; T40.415A Adverse effect of fentanyl or fentanyl analogs, initial encounter; E78.00 Pure hypercholesterolemia, unspecified; R73.03 Prediabetes; Z66 Do not resuscitate; Z79.899 Other long term (current) drug therapy
CPT/HCPCS: 36415; 51701; 70450; 71045; 80053; 80061; 80202; 80307; 81001; 82140; 83036; 83605; 83735; 83880; 84100; 84145; 84425; 84484; 85025; 85610; 87040; 87077; 87081; 87186; 93005; 96360; 97162; 99284; J1644; J2312; J3373; J3375; J3411; J7030; A9270

== ENCOUNTER 2025-01-04 21:18 | Emergency (ER) | payer OTHER, SELFPAY ==
[2025-01-04 21:22] VITALS: PULSE 80; O2SAT 94
[2025-01-04 21:25] VITALS: BP 131/93; PULSE 75; RESP 18; TEMP 36.6; O2SAT 96
--- NOTE | 2025-01-04 21:27 | EDNOTE_ITS ---
Altered Mental Status RME/HPI General Chief Complaint: Altered Mental Status Stated Complaint: ALTERED Time Seen by Provider: 01/04/25 21:27 Arrival date/time: 01/04/25 21:18 RME / HPI RME / HPI narrative: Dr. Flynn?s Main ED Evaluation: 79yo female with a history of Parkinson's, depression, HTN, HLD MARIA ELENAA from [facility] presents to the ED for a chief complaint of AMS. Per EMS, family requested the patient be sent out for evaluation due to not acting like herself . Patient was just discharged from this facility earlier tonight. Patient currently denies any pain, otherwise, she is a poor historian. Blood sugar with EMS was 103. Related Data Home Medications ?Medication ?Instructions ?Recorded ?Confirmed carbidopa 25 mg-levodopa 100 mg 1 tab PO QDAY 05/10/24 01/01/25 tablet pramipexole 1 mg tablet 1 mg PO BID 05/10/24 5 rivastigmine tartrate 4.5 mg 4.5 mg PO QDAY 05/10/24 1 03/03/24 capsule sertraline 50 mg tablet 50 mg PO Q24H 05/10/2401/01 Previous Rx's ?Medication ?Instructions ?Recorded lovastatin 40 mg tablet 40 mg PO HS 30 days #30 tabs 01/04/25 Allergies Allergy/AdvReac Type Severity Reaction Status Date / Time codeine Allergy Mild SHAKEY Verified 01/01/25 10:20 Review of Systems Review of Systems ROS Unobtainable: unobtainable due to mental status ED Exam Narrative Physical exam: Generally patient is an elderly appearing female who appears somewhat confused, eyes show pupils to be approximately 2 to 3 mm and equal bilaterally, head is normocephalic atraumatic, heart regular rate and rhythm, lungs clear to auscultation equal bilaterally, abdomen soft nontender, extremities show no edema, neurologic exam showed the patient to be slow to respond to questioning but does answer questions appropriately, no focal motor deficits, patient does have a resting tremor to her right upper extremity, skin is cool pale and dry Course Quality Measures none Orders Category Date Time Status EKG (ED ONLY) *Do not use* NOW Care 01/04/25 21:[address] head/brain wo con Stat Exams 01/04/25 21:41 Completed EKG (ED Only) Stat Exams 01/04/25 21:41 Draft CBC Stat Lab 01/04/25 21:50 Completed CMP [Comprehensive Metabolic Panel] Stat Lab 01/04/25 21:50 Completed Drug Screen,Urine Stat Lab 01/04/25 21:50 Completed Troponin I Stat Lab 01/04/25 21:50 Completed UA [Urinalysis] Stat Lab 01/04/25 21:50 Completed Vital Signs Vital signs: Vital Signs Temperature 97.9 F 01/04/25 21:25 Pulse Rate 75 01/04/25 21:25 Respiratory Rate 18 01/04/25 21:25 Blood Pressure 131/93 H 01/04/25 21:25 Pulse Oximetry (%) 96 01/04/25 21:25 Oxygen Delivery Method Room Air 01/04/25 21:25 Altered Mental Status MDM Narrative MDM Narrative:: Scribe Attestation: 01/04/25 - Ambika Cha, am scribing for and in the presence of Dr. Flynn. I investigated the patient's recent hospitalization and discharge today. She was dysphoric and confused at times here in the hospital. She was on cipr ofloxacin which could add to this confusion. She also is getting over a urinary tract infection. She was discharged to rehabilitation facility where her overall dysphoria worsened. That is the main reason why the patient was brought back here to the emergency room for evaluation at the patient's family's/granddaughter's request. Here blood work is very similar to blood work done earlier this morning. CAT scan of the brain was negative. The urine infection is markedly improved. There is no electrolyte abnormality to account for the patient's deterioration in condition. I believe the patient's deterioration in condition to be due to dysphoria due to being in a strange place which was the hospital and now a rehabilitation facility. After speaking with the hospitalist who went and also spoke with the patient, I am in full agreement that the patient may do better with in-home health care. Patient originally went to a rehabilitation facility because she was weak. Patient is medically clear for forensic social worker consultation in the morning to see if and home health care can be arranged for this patient. Patient data External records reviewed:: [facility] previous records (Per chart review, patient was admitted here on 01/01/25 for AMS.) and EMS form Clinical information provided by:: EMS Social determinants that could affect healthcare access:: housing (SNF resident) Patient has the following chronic illnesses:: Parkinson's, depression, HTN, HLD How is presenting disease/condition affected by chronic disease/condition?: uneffected by Evaluation data The following diagnostics were reviewed and interpreted by me:: lab results, radiology exam(s) and EKG tracing(s) Lab and/or radiology exams considered but not ordered:: none Interpretation Summary: [place] [facility] Report Signed Patient: LEO MONK Record#: [id number] Birthdate: 1945 Age/Sex: 79 / F Location: [facility] Attending Dr: Ordering Physician: Yomi Flynn DO Date of Service: 01/04/25 Procedure(s): CT head/brain wo con Accession Number(s): [id number] cc: Artur Anderson MD; Gallo Hightower MD; Yomi Flynn DO~ Examination: CT brain head without contrast. 2-D sagittal coronal reconstructions Date and time of exam: January 04, 2025, 10:37 p.m., comparison January 01, 2025 INDICATIONS: Altered mental status today CTDI: vol (mGy): 49.6 DLP: (mGycm): 1067 Technique: Multiple CT axial sections of the brain have been obtained, 5 mm slice thickness. Contrast has not been administered. 2-D sagittal, coronal reconstructions have been obtained Low dose protocols were performed. One or more of the following dose reduction techniques were used; automated exposure control, adjustment of the mA and/or KV according to patient size, use of iterative reconstruction technique. Findings: No significant ventricular enlargement. Intra-axial or extra-axial hemorrhage density is not seen. No mass effect or midline shift Basal cisterns are not remarkable. Fourth ventricle is midline. Cranial vault intact. Impression: Negative for acute hemorrhage, mass effect or midline shift Dictated By: Gallo Hightower MD Signed By: <Electronically signed by Gallo Hightower MD in OV> 01/04/25 6856 Medications / Prescriptions Medications or Prescriptions considered but not ordered:: none Medication administrations:: none Consultations Consultation(s) initiated? (list below): Yes Diagnosis Differential diagnosis altered mental status: other (See MDM) Most likely diagnosis given after review of the tests above:: see clinical impression below Admission Indicated Admission indicated?: not indicated Admission Request Was there a request for admission?: No Disposition Plan Disposition Plan: other (specify) (Signed out to Dr. Garay at 0600.) Discharge Plan Prescriptions/Referrals Prescriptions/Med Rec: No Action lovastatin 40 mg tablet 40 mg PO HS 30 Days Qty: 30 0RF Patient Comments: TAKE 1 TABLET BY MOUTH EVERY DAY rivastigmine tartrate 4.5 mg capsule 4.5 mg PO QDAY carbidopa-levodopa 25-100 mg tablet 1 tab PO QDAY Patient Comments: TAKE 1 TABLET BY MOUTH DAILY sertraline 50 mg tablet 50 mg PO Q24H pramipexole 1 mg tablet 1 mg PO BID Patient Comments: TAKE 1 TABLET BY MOUTH TWICE DAILY Referrals: Artur Anderson MD [Primary Care Provider, Internal Medicine] - In 1 week Problem List Clinical Impression: Acute confusion Patient/Caregiver Discharge Instructions Print Language: Tanzanian
[2025-01-04 21:35] VITALS: BMI 22.6
--- NOTE | 2025-01-04 21:41 | XR_ITS ---
Examination: CT brain head without contrast. 2-D sagittal coronal reconstructions Date and time of exam: January 04, 2025, 10:37 p.m., comparison January 01, 2025 INDICATIONS: Altered mental status today CTDI: vol (mGy): 49.6 DLP: (mGycm): 1067 Technique: Multiple CT axial sections of the brain have been obtained, 5 mm slice thickness. Contrast has not been administered. 2-D sagittal, coronal reconstructions have been obtained Low dose protocols were performed. One or more of the following dose reduction techniques were used; automated exposure control, adjustment of the mA and/or KV according to patient size, use of iterative reconstruction technique. Findings: No significant ventricular enlargement. Intra-axial or extra-axial hemorrhage density is not seen. No mass effect or midline shift Basal cisterns are not remarkable. Fourth ventricle is midline. Cranial vault intact. Impression: Negative for acute hemorrhage, mass effect or midline shift
--- NOTE | 2025-01-04 21:41 | EKG_ITS ---
[facility] Test Date: 2025-01-04 Pat Name: LEO MONK Department: Room: - Gender: Female Curtain Drier: : 1945 Requested By: Yomi Tariq Order Number: [id number] Reading MD: Yomi Tariq Measurements Intervals [place] Rate: 81 P: 35 ID: [id number] QRS: -23 QRSD: 83 T: -4 QT: 378 QTc: 440 Interpretive Statements SINUS RHYTHM INFERIOR MYOCARDIAL INFARCTION , OF INDETERMINATE AGE [40+ ms Q WAVE AND/OR ST/T ABNORMALITY IN II/aVF] Compared to ECG 01/01/2025 11:10:15 No significant changes /store/S0/[id number]/[id number].pdf
[2025-01-04 22:02] LABS: Collection Type, Urine Voided
[2025-01-04 22:09] LABS: Basophils # (Auto) 0.0 Thou/mm3 (0.0-0.2); Basophils % (Auto) 0 % (0-2.5); Eosinophils # (Auto) 0.1 Thou/mm3 (0.0-0.5); Eosinophils % (Auto) 1 % (0-10); Hematocrit 41.1 % (36.0-46.0); Hemoglobin 13.0 g/dL (12.0-16.0); Immature Granulocytes Auto 0.02 Thou/mm3 (0.00-0.00); Lymphocytes # (Auto) 4.4 Thou/mm3 (1.0-4.8); Lymphocytes % (Auto) 55 % (10-50); Mean Corpuscular HGB Conc 31.6 g/dl (31.0-37.0); Mean Corpuscular Hemoglobin 28.5 pg (25.0-35.0); Mean Corpuscular Volume 90 fL (80-100); Monocytes # (Auto) 0.4 Thou/mm3 (0.0-0.8); Monocytes % (Auto) 5 % (0-12); Neutrophils # (Auto) 3.1 Thou/mm3 (1.8-7.7); Neutrophils % (Auto) 39 % (37-80); Nucleated Red Blood Cell # 0.00 Thou/mm3 (0.00-0.00); Nucleated Red Blood Cell % 0 /100 WBC (0); Platelet Count 242 Thou/mm3 (140-440); RDW Standard Deviation 46.6 fL (36.4-46.3); Red Blood Count 4.56 Miln/mm3 (4.00-5.20); White Blood Count 8.0 Thou/mm3 (3.6-11.0)
[2025-01-04 22:17] LABS: Bilirubin,Urine Negative (Negative); Blood,Urine 1+ (Negative); Clarity,Urine Clear (Clear/Hazy); Color,Urine Lt-Yellow (Lt Yel-Yel); Glucose, Urine Negative (Negative); Hyaline Casts,Urine < 1 /hpf (0-1); Ketones,Urine 1+ (Negative); Leukocyte Esterase,Urine Positive (Negative); Nitrite,Urine Negative (Negative); PH,Urine 5.5 (5.0-7.0); Protein,Urine Negative (Neg - Trace); RBC,Urine 8 /hpf (0-3); Specific Gravity,Urine 1.022 (1.001-1.035); Squamous Epithelial Cell,Urine < 1 /hpf (0-5); Urobilinogen,Urine Negative mg/dL (0.0-1.0); WBC,Urine 14 /hpf (0-5)
[2025-01-04 22:24] LABS: Amphetamine/Methamp Scrn,U Negative (Negative); Barbiturate Screen,Urine Negative (Negative); Benzodiazepines Screen,Urine Negative (Negative); Benzoylecgonine Screen, Ur Negative (Negative); Fentanyl Screen,Urine Negative (Negative); Opiate Screen,Urine Negative (Negative); THC Screen,Urine Negative (Negative)
[2025-01-04 22:28] LABS: Alanine Aminotransferase < 7 U/L (10-49); Albumin, Serum 4.4 gm/dL (3.4-4.8); Albumin/Globulin Ratio 2.9 (1.2-2.2); Alkaline Phosphatase 77 U/L (46-116); Anion Gap 10 (7-16); Aspartate Amino Transferase 21 U/L (0-34); BUN/Creatinine Ratio 11 Ratio (12-20); Bilirubin,Total 0.4 mg/dL (0.3-1.2); Blood Urea Nitrogen 9 mg/dL (9-23); Calcium 9.6 mg/dL (8.3-10.6); Calcium (Corrected) 9.6 mg/dL (8.5-10.1); Carbon Dioxide 25.5 mMol/L (20.0-31.0); Chloride 104 mMol/L (98-107); Creatinine (Component) 0.8 mg/dL (0.6-1.3); Estimated Creatinine Clearance 47.9 mL/min (>60); Globulin 1.5 gm/dL (2.3-3.5); Glucose 92 mg/dL (74-106); Osmolality,Calculated 276 (275-295); Potassium 4.5 mMol/L (3.4-5.1); Sodium 139 mMol/L (136-145); Total Protein 5.9 gm/dL (5.7-8.2); Troponin I < 0.020 ng/mL (0.0-0.045); eGFR > 60 See Note
[2025-01-04 23:41] VITALS: BP 128/80; PULSE 88; RESP 18; TEMP 37; O2SAT 94
--- NOTE | 2025-01-05 01:01 | PD.RESCONSUL ---
HPI Data of Consult Requesting Physician: Dr. Yomi Flynn Attending Provider: Dr. Alfaro Primary Care Provider: Artur Anderson MD Consult Narrative History of present illness: 79yo female with a history of Parkinson's, depression, HTN, HLD DELFINA from [facility] presents to the ED for a chief complaint of AMS. Per EMS, family requested the patient be sent out for evaluation due to not acting like herself . Patient was just discharged from this facility earlier tonight. Patient currently denies any pain, otherwise, she is a poor historian. Upon initial examination with family at bedside her recent hospital history was reviewed. Patient is AOx3. The family's main concern was that they are unaccustomed to her rapid deterioration today when she was being driven by ambulane to the rehab facility. They described it as a complete 180. They are used to her having a slow change in behavior with her Parkinson's over the course of years. It was explained and understood that her Parkinon's disease is a progressive neurological disease and in combination with her age predisposes her to a condition called sundowning and hospital acquired delirium which would explain her behavior on recent admissions as well as her rapid delirium in the ambulance on discharge today and current waxing and waning mentation. Her labs were reviewed, she had no signs of infection. Her UA still has very minor WBC elevation of 14 and RBC of 8 which is to be expected after an improving UTI which was treated upon her admission from 01/01 - 01/04 (today). Dr. Heredia also spoke with the patient and per her note recommends continuing Parkinson's medication. cc:: cc: Exam Vital Signs Temp Pulse Resp BP Pulse Ox O2 Del Method 98.6 F 88 18 128/80 94 L Room Air 01/04/25 23:41 01/04/25 23:41 01/04/25 23:41 01/04/25 23:41 01/04/25 23:41 01/04/25 23:41 Narrative Exam General: Frail elderly lady. Able to identify name, place, and time. Awake and in no acute distress. Neurologic: GCS 15. Alert and oriented x3, no gross neurological deficit, and patient able to move all 4 extremities. HEENT: Normocephalic, atraumatic, mucous membranes moist. Pupils reactive to light. Heart: Regular rate and rhythm, normal S1 and S2, no murmurs. Lungs: Clear to auscultation bilaterally with no wheezing or crackles. Abdomen: Soft, nondistended, nontender. No guarding or rebound tenderness. Extremities: Grade 3 right upper extremity resting tremor. Grade 1 lipsmacking tremor. Grade 2 left arm tremor. No edema. 2+ radial and dorsalis pedis pulses bilaterally. Skin: Warm. Dry. No rash or ecchymoses. Results Labs 01/04/25 21:50 01/04/25 21:50 Labs: Short CBC 01/04/25 Range/Units 21:50 WBC 8.0 (3.6-11.0) Thou/mm3 Hgb 13.0 (12.0-16.0) g/dL Hct 41.1 (36.0-46.0) % Plt Count 242 D (140-440) Thou/mm3 BMP 01/04/25 21:50 Sodium 139 Potassium 4.5 D Chloride 104 Carbon Dioxide 25.5 BUN 9 Creatinine 0.8 Glucose 92 Calcium 9.6 Cardiac Enzymes 01/04/25 Range/Units 21:50 Troponin I < 0.020 (0.0-0.045) ng/mL Liver Function 01/04/25 Range/Units 21:50 Total Bilirubin 0.4 (0.3-1.2) mg/dL AST 21 (0-34) U/L ALT < 7 L (10-49) U/L Alkaline Phosphatase 77 (46-116) U/L Albumin 4.4 (3.4-4.8) gm/dL Urine 01/04/25 Range/Units 21:50 Urine Color Lt-Yellow (Lt Yel-Yel) Urine Clarity Clear (Clear/Hazy) Urine pH 5.5 (5.0-7.0) Ur Specific [place] 1.022 (1.001-1.035) Urine Protein Negative (Neg - Trace) Urine Glucose (UA) Negative (Negative) Quality Measures Quality Measures none Advance care planning discussed with:: patient and child Medications Home Medications and Allergies Home Medications ?Medication ?Instructions ?Recorded ?Confirmed ?Type carbidopa 25 mg-levodopa 100 mg 1 tab PO QDAY 05/10/24 01/01/25 History tablet pramipexole 1 mg tablet 1 mg PO BID 05/10/24 01/01/25 History rivastigmine tartrate 4.5 mg 4.5 mg PO QDAY 05/10/24 01/01/25 History capsule sertraline 50 mg tablet 50 mg PO Q24H 05/10/24 01/01/25 History Allergies Allergy/AdvReac Type Severity Reaction Status Date / Time codeine Allergy Mild SHAKEY Verified 01/01/25 10:20 Assessment & Plan Plan 79yo female with a history of Parkinson's, depression, HTN, HLD BIBA from [facility] presents to the ED for a chief complaint of AMS. #Delirium likely multifactorial #Parkinson's disease #Sundowning In setting of hospitalization, new placement at SNF, and Parkinson progression. Patient does not have any signs of active infection per labs or imaging. She has been admitted multiple times this year and found to have behavioral concerns that mirror sundowning. Family is concerned because patient had a very combative/agitated ambulance ride from the hospital on discharge to the rehab facility. Patient was alert and oriented to name, place, date, and her recent hospitalization and discharge today, on examination and calm with family present. Patient does not have any medical concerns that could be effectively treated with hospital admission, denies any symptoms. The hospital environment, characterized by high ambient noise, poor lighting, lack of windows, frequent room changes, and restraint use, often contributes to worsening confusion. Will attempt to have social work set up home PT in AM, rather than sending patient back to rehab facility. Plan: -In AM have social work assist with changing PT to home visits rather than at rehab facility -Orientation protocols?? Provision of clocks, calendars, windows with outside views, and verbally reorienting patients may mitigate confusion that results from disorientation in unfamiliar environments. -Cognitive stimulation?? Patients with cognitive impairment, in particular, may benefit from activity such as regular visits from family and friends. At the same time, sensory overstimulation should be avoided, particularly at night. -Facilitation of physiologic sleep?? Nursing and medical procedures, including the administration of medications, should be avoided during sleeping hours when possible. Night-time noise should be reduced. Consider earplugs -Early mobilization and minimized use of physical restraints for patients with limited mobility? -Visual and hearing aids for patients with these impairments -Avoiding and/or monitoring the use of problematic medications - Benzodiazepines, in particular, are often implicated. -Managing pain?? Pain may be a significant risk factor for delirium. The use of nonopioid medications should be used where possible, as these are less likely to aggravate delirium -Mild confusion and agitation may respond to interpersonal and environmental manipulations. -Frequent reassurance, touch, and verbal orientation can lessen disruptive behaviors; family members or other familiar persons are preferred, but professional sitters can also be used to effect. -Delusions and hallucinations should be neither endorsed nor challenged. -Physical restraints should be used only as a last resort, if at all, as they frequently increase agitation and create additional problems, such as loss of mobility, pressure ulcers, aspiration, and prolonged delirium. Patient seen and reviewed with attending Dr. Alfaro and supervising resident Dr. Jennifer Kruger. Note written by Venancio Mortensen MD PGY-1 Attending Provider Attestation/Addendum After examination of the patient and review of the clinical data I feel that this patient needs admission to the hospital for further treatment/evaluation. Plan of care discussed with patient and is in agreement. I Monik Alfaro MD, attest that I was physically present for mar portions of evaluation, and examined patient, labs and imagings and plan of care were discussed with IM residents team, and I agree with the findings and plans documented above.
[2025-01-05 03:19] VITALS: BP 142/90; PULSE 88; RESP 18; TEMP 36.6; O2SAT 94
--- NOTE | 2025-01-05 06:22 | PD.EDADDENDU ---
Emergency Room Addendum <Lulu Auguste - Last Filed: 01/05/25 09:34> Addendum Narrative: 0600: Care assumed from Dr. Flynn, the previous shift emergency physician. Past medical, surgical, social and family history reviewed. Vitals and home medications reviewed. I will assume the care of the patient at this time, pending licensed clinical social worker consultation. Please refer to the emergency department record for history and examination from initial visit.?The following addendum documentation note is intended to reflect any pending information, findings, or radiology results not included in the patient?s initial chart. Patient is a 79-year-old female with medical history notable for Parkinson's, hyperlipidemia is in the emergency department with concerns for confusion and weakness. Patient was recently discharged from hospitalist service, was discharged to a rehab due to weakness however at the rehab patient appeared to not be herself until family brought her to the emergency department. Overnight provider ordered labs CT brain performed urinalysis. Labs without any acute hematologic or significant metabolic abnormality, urinalysis with 8 RBCs positive leuk esterase 14 white blood cells no squames no bacteria patient is currently on antibiotics for urinary tract infection. Drug screen negative, CT brain unremarkable. Hospital service evaluated patient, recommended discharge to home with home health to help with delirium. Patient is pending social work evaluation this morning 0815a: Notified by child welfare social worker she has contacted the daughter and is unsure of what she is wanting to do at this time. States she is not able to care for her at home. I spoke with the daughter and she was made aware the patent does not have an admittable diagnosis. States she needs more time to think and will call us back. 0915a: Notified by child welfare social worker the daughter is amenable with plan for patient to return to [facility]. EMS p/u has been arranged. <Marta Garay MD - Last Filed: 01/05/25 09:49> Addendum Narrative: 0600: Care assumed from Dr. Flynn, the previous shift emergency physician. Past medical, surgical, social and family history reviewed. Vitals and home medications reviewed. I will assume the care of the patient at this time, pending licensed clinical social worker consultation. Please refer to the emergency department record for history and examination from initial visit.?The following addendum documentation note is intended to reflect any pending information, findings, or radiology results not included in the patient?s initial chart. Patient is a 79-year-old female with medical history notable for Parkinson's, hyperlipidemia is in the emergency department with concerns for confusion and weakness. Patient was recently discharged from hospitalist service, was discharged to a rehab due to weakness however at the rehab patient appeared to not be herself until family brought her to the emergency department. Overnight provider ordered labs CT brain performed urinalysis. Labs without any acute hematologic or significant metabolic abnormality, urinalysis with 8 RBCs positive leuk esterase 14 white blood cells no squames no bacteria patient is currently on antibiotics for urinary tract infection. Drug screen negative, CT brain unremarkable. Hospital service evaluated patient, recommended discharge to home with home health to help with delirium. Patient is pending social work evaluation this morning 0815a: Notified by child welfare social worker she has contacted the daughter and is unsure of what she is wanting to do at this time. States she is not able to care for her at home. I spoke with the daughter and she was made aware the patent does not have an admittable diagnosis. States she needs more time to think and will call us back. 0915a: Notified by child welfare social worker the daughter is amenable with plan for patient to return to [facility]. EMS p/u has been arranged. 9:49: EMS arrived to pick up and delivery driver patient. Patient is hemodynamically stable not in distress.
[2025-01-05 06:53] VITALS: BP 144/80; PULSE 94; RESP 18; TEMP 37.3; O2SAT 94
[2025-01-05 07:46] VITALS: BP 133/87; PULSE 92; RESP 18; O2SAT 93
[2025-01-05 08:11] VITALS: BP 113/81; PULSE 88; RESP 18; TEMP 36.8; O2SAT 94
--- NOTE | 2025-01-05 09:00 | PC.SS ---
SS follow up note; SS was contacted by patient's daughter, Cindi and she informed SS that she has decided for patient to discharge back to [place]. Patient does not have coverage through [facility]. SHAI form was filled out by Marisel NGUYEN. SS sent PCS form through [employer]. SS contacted [facility] and set up transportation for 10AM. SS updated patient's nurse, Nisreen
[2025-01-05 09:37] VITALS: BP 138/97; PULSE 98; RESP 16; O2SAT 96
--- NOTE | 2025-01-05 09:43 | PC.NURSE ---
REPORT CALLED TO CORRECTION Gave report to Darline
[2025-01-05 09:44] VITALS: BP 138/97; PULSE 98; RESP 16; O2SAT 96
== END 2025-01-05 09:46 | disposition skilled nursing facility (03) ==
PROVIDERS: Emergency Medicine; Emergency Provider Emergency Medicine; PCP Internal Medicine
DX: R41.82 Altered mental status, unspecified (principal); I10 Essential (primary) hypertension; E78.5 Hyperlipidemia, unspecified; F32.A Depression, unspecified; G20.A1 Parkinson's disease without dyskinesia, without mention of fluctuations
CPT/HCPCS: 36415; 70450; 80053; 80307; 81001; 84484; 85025; 93005; 99283